=== PATIENT | female | born 2000 | race Caucasian/White ===

== ENCOUNTER 2023-07-11 20:57 | Outpatient (REF) | payer MEDICAID, SELFPAY ==
[2023-07-14 12:09] LABS: Age Gdln ACOG Testing Note (.); IGP, rfx Aptima HPV ASCU Note (.)
== END 2023-07-11 20:58 | disposition home or self-care (01) ==
LOC: LAB 20:57
PROVIDERS: Visit Provider Obstetrics & Gynecology
DX: Z01.419 Encounter for gynecological examination (general) (routine) without abnormal findings (principal)
CPT/HCPCS: G0145

== ENCOUNTER 2024-06-21 10:06 | Outpatient (OUT) | payer MEDICAID, SELFPAY ==
--- NOTE | 2024-06-21 10:31 | XR_ITS ---
The [address] [address] Patient Name: OSVALDO NICOLE MRN: [id number] date: 2000 Sex: F Assigned Patient Location: [facility] Current Patient Location: Accession/Order Number: [id number] Exam Date: 06/21/2024 10:45 Report Date: 06/22/2024 09:40 At the request of: YAS STINSON Procedure: XR chest 2V EXAMINATION: XR chest 2V HISTORY: Preop exam COMPARISON: No relevant comparison available. FINDINGS: LUNGS: No significant pulmonary parenchymal abnormalities. VASCULATURE: No increased pulmonary vasculature. PLEURA: No pneumothorax, effusion, or pleural thickening. CARDIAC: No cardiomegaly or cardiac silhouette abnormality. MEDIASTINUM: No visible mass or adenopathy. BONES: No fracture or visible bone lesion. OTHER: Negative. XR/XR chest 2V IMPRESSION: 1. Clear lungs. Normal examination. Electronically authenticated by: JULIO HORVATH Date: 06/22/2024 09:40
== END 2024-06-21 10:07 | disposition home or self-care (01) ==
LOC: PST 10:08
PROVIDERS: PCP Nurse Practitioner Family; Visit Provider Obstetrics & Gynecology
DX: Z01.810 Encounter for preprocedural cardiovascular examination (principal); R10.2 Pelvic and perineal pain; N83.9 Noninflammatory disorder of ovary, fallopian tube and broad ligament, unspecified
CPT/HCPCS: 71046

== ENCOUNTER 2024-07-06 06:38 | Day surgery (SDC) | payer MEDICAID, SELFPAY ==
[2024-06-21 10:39] VITALS: BP 124/87; PULSE 97; TEMP 36.5; O2SAT 100; BMI 29.2
[2024-07-06] VITALS (12 sets, daily range): BP systolic 98–128; BP diastolic 51–85; PULSE 69–91; TEMP 36.2; O2SAT 90–100; BMI 29.9
--- OUTSIDE RECORDS SUMMARY | 2024-07-06 06:41 | XMS_ITS | CCD ---
Author Organization [facility] Care Team Providers Care State Patrol Officer Name Role Phone Unavailable Primary Care Provider Unavailabl e MILAD, DR SORENSON Admitting Unavailable MILAD, DR SORENSON Attending Unavailable REQUEST, NONE LISTED Primary Care Unavaila ble MILAD, DR SORENSON Consulting Unavailable MILAD, DR SORENSON Admitting Unavailable MILAD, DR SORENSON Attending Unavailable REQUEST, NONE LISTED Primary Care Unavaila ble MILAD, DR SORENSON Consulting Unavailable BROWN, MARZENA Consulting Unavailable MILAD, DR SORENSON Admitting Unavailable MILAD, DR SORENSON Attending Unavailable REQUEST, NONE LISTED Primary Care Unavaila ble MILAD, DR SORENSON Admitting Unavailable MILAD, DR SORENSON Attending Unavailable REQUEST, NONE LISTED Primary Care Unavaila ble ABUGHARBYEH, AYA Attending Unavailable ABUGHARBYEH, AYA Attending Unavailable ABUGHARBYEH, AYA Attending Unavailable Unavailable Primary Care Provider Unavailabl e MEREDITH, MARZENA Moncada Referring Unavailable LEVER, MARZENA Moncada Referring Unavailable LEVER, MARZENA Moncada Attending Unavailable LEVER, MARZENA Moncada Attending Unavailable LEVER, MARZENA Moncada Attending Unavailable MILAD, YAS Attending Unavailable MILAD, YAS Attending Unavailable Allergies Allergy Classification Reported Allergen(s) Allergy Type Date of Onset Reaction(s) Facility (8 sources) Acetaminophen / HYDROcodone; Translations: [HYDROCODONE-ACETA MINOPHEN] Drug Allergy 03-09-2019 [facility] (2 sources) Acetaminophen / HYDROcodone Drug Allergy 09-26-[address] [facility] (1 source) Tylenol-Codeine Drug allergy (disorder) 10-26-[address] [facility] Medications Current Medications Medication Drug Class(es) Dates Sig (Normalized) Sig (Original) bifidobacterium infantis 10.5 mg chewable tablet (5 sources) Bifidobacterium infantis (ALIGN) 10.5 mg (10 million cell) chew Take by mouth. Active Comment on above: Take by mouth. multivit with iron,minerals (MULTIVITAMIN AND MINERALS ORAL) (5 sources) multivit with iron,minerals (MULTIVITAMIN AND MINERALS ORAL) Take by mouth once daily. Active multivit with ir on,minerals (MULTIVITAMIN AND MINERALS ORAL) Take by mouth once daily. 0 Active Comment on above: Take by mouth once d aily. Problems Active Problems Problem Classification Problem Date Documented Da te Episodic/Chronic Abdominal pain (9 sources) Pelvic and perineal pain; Translations: [Left lower quadrant pain] Onset: 04-14-2022 Episodic Immunizations and screening for infectious disease (1 source) Encounter for screening for human papillomavirus (HPV); Translations: [ENC SCREENING HUMAN PAPILLOMAVIRUS] Onset: 07-08-2022 Episodic Menstrual disorders (1 source) Irregular menstruation, unspecified; Translations: [IRREGULAR MENSTRUATION UNSPECIFIED] Onset: 04-19-2022 Chronic Other gastrointestinal disorders (3 sources) Abdominal bloating; Translations: [Abdominal distension (gaseous)] 04-23-2024 Episodic Other gastrointestinal disorders (2 sources) Abdominal distension (gaseous); Translations: [Bloating] Onset: 05-07-2024 Episodic Other infections; including parasitic (3 sources) Personal history of other infectious and parasitic diseases; Translations: [Personal history of other infectious and parasitic diseases] Onset: 04-16-2024 Episodic Other screening for suspected conditions (not mental disorders or infectious disease) (4 sources) Encounter for screening for malignant neoplasm of cervix; Translations: [ENC SCREENING MALIG NEOPLASM CERV] Onset: 07-07-2022 Episodic Past or Other Problems Problem Classification Problem Date Documented Da te Episodic/Chronic Spondylosis; intervertebral disc disorders; other back problems (4 sources) Sciatica, right side; Translations: [Sciatica, left side] Onset: 03-09-2023 Episodic Results Test Name Value Interpretation Reference Range Facility C diff Tox gens Stl Ql ARGENIS+p jennifereon 05-07-2024 C. difficile toxin genes ARGENIS+probe Ql (Stl) Negative Normal Negative for C. difficile toxin by PCR [facility] Comment on above: Order Comment: Speci men Type: STOOL SPECIMEN [facility] Address: [address] [place] [address] Performed By: #### 5 4067-4, FECWBC, 81429-2, 15080-2 #### [facility] CLIA [id number] [address] [facility] [id number] [address] [place] CBC panel Auto (Bld)on 05-07 Erythrocyte distribution width (RBC) [Ratio] 13.5 % Normal 11.5-15.0 [facility] Comment on above: Order Comment: Speci men Type: BLOOD SPECIMENOrdering Facility: [facility] Address: [address] [place] [address] Performed By: #### 5 8410-2 ####[facility] [id number] [address] [place] Hematocrit (Bld) [Volume fraction] 39.3 % Normal 36.0-46.0 [facility] Comment on above: Order Comment: Speci men Type: BLOOD SPECIMENOrdering Facility: [facility] Address: [address] [place] [address] Performed By: #### 5 8410-2 ####[facility] [id number] [place], [place] [address] [place] [address] [place] Hemoglobin (Bld) [Mass/Vol] 12.8 g/dL Normal 11.5-15.5 [facility] Comment on above: Order Comment: Speci men Type: BLOOD SPECIMENOrdering Facility: [facility] Address: [address] [place] [address] Performed By: #### 5 8410-2 ####[facility] [id number] [place] [address] [place] MCH (RBC) [Entitic mass] 29.4 pg Normal 26.0-34.0 [facility] Comment on above: Order Comment: Speci men Type: BLOOD SPECIMENOrdering Facility: [facility] Address: [address] [place] [address] Performed By: #### 5 8410-2 ####[facility] [id number] [place] [id number] [place] MCHC (RBC) [Mass/Vol] 32.6 g/dL Normal 30.5-36.0 [facility] Comment on above: Order Comment: Speci men Type: BLOOD SPECIMENOrdering Facility: [facility] Address: [address] [place] [address] Performed By: #### 5 8410-2 ####[facility] [id number] [place] [address] [place] MCV (RBC) [Entitic vol] 90.3 fL Normal 80.0-100.0 [facility] Comment on above: Order Comment: Speci men Type: BLOOD SPECIMENOrdering Facility: [facility] Address: [address] [place] [address] Performed By: #### 5 8410-2 ####[facility] [id number] [place], [place] [id number] [place] [address] [place] Nucleated RBC (Bld) [#/Vol] 10*3/uL Normal <0.01 [facility] Comment on above: Order Comment: Speci men Type: BLOOD SPECIMENOrdering Facility: [facility] Address: [address] [place] [address] Performed By: #### 5 8410-2 ####[facility] [id number] [place] [address] [place] Platelet mean volume (Bld) [Entitic vol] 8.9 fL Low 9.0-12.7 [facility] Comment on above: Order Comment: Speci men Type: BLOOD SPECIMENOrdering Facility: [facility] Address: [address] [place] [address] Performed By: #### 5 8410-2 ####[facility] [id number] [place] [id number] [place] Platelets (Bld) [#/Vol] 249 10*3/uL Normal 150-400 [facility] Comment on above: Order Comment: Speci men Type: BLOOD SPECIMENOrdering Facility: [facility] Address: [address] [place] [address] Performed By: #### 5 8410-2 ####[facility]ORYCLIA [id number] [place] [address] [place] RBC (Bld) [#/Vol] 4.35 10*6/uL Normal 3.90-5.20 [facility] Comment on above: Order Comment: Speci men Type: BLOOD SPECIMENOrdering Facility: [facility] Address: [address] [place] [address] Performed By: #### 5 8410-2 ####[facility] [id number] [place] [address] [place] WBC (Bld) [#/Vol] 7.25 10*3/uL Normal 3.70-11.00 [facility] Comment on above: Order Comment: [facility] Type: BLOOD SPECIMENOrdering Facility: [facility] Address: [address] [place] [address] Performed By: #### 5 8410-2 ####[facility] [id number] [place] [address] [place] [employer] HLA-DQ GENOTYPE on 05-07-2024 ORTIZ INTERPRETATION The HLA-DQ genotype of the patient is supportive of an increased risk of celiac disease. Normal [facility] Comment on above: Order Comment: Speci [facility] Type: BLOOD SPECIMENOrdering Facility: [facility] Address: [address] [place] [address] Performed By: #### C KAYLAH ####[facility] [id number] [place] [address] [place] CELIAC CATEGORY Category 3 Normal [facility] Comment on above: Order Comment: Speci [facility] Type: BLOOD SPECIMENOrdering Facility: [facility] Address: [address] [place] [address] Result Comment: CATEGORY DQ HAPLOTYPE RELATIVE RISK Category 7 DQ2.2 AND DQ2.5 Extremely High Category 7 DQ2.5 AND DQ2.5 Extremely High Category 6 DQ2.2 AND DQA1*05, DQB1*03:01 Very High Category 5 DQ2.2 AND DQ8 Very High Category 5 DQ2.5 AND DQ8 Very High Category 4 DQ8 AND DQ8 High Category 3 DQ2.5 AND DQA1*05, DQB1*03:01 High Category 3 DQ2.5 AND DQA1*02:01, DQB1*03:03 High Category 3 DQ2.5 AND DQA1*03, DQB1*02 High Category 3 DQ2.5 AND OTHER LOW RISK [place] High Category 3 DQ2.2 AND DQA1*05, DQB1*03:03 High Category 2 DQ8 AND OTHER LOW RISK [place] Moderate Category 1 DQ2.2 AND OTHER LOW RISK [place] Low Category 0 NEGATIVE FOR DQ2.2 Negative Category 0 NEGATIVE FOR DQ2.5 Negative Category 0 NEGATIVE FOR DQ8 Negative DQ2.2 = DQA1*02:01, DQB1*02:02 DQ2.5 = DQA1*05, DQB1*02:01 DQ8 = DQA1*03, DQB1*03:02 The identification of one of these HLA-DQ genotypes is not, by itself, sufficient for the diagnosis of celiac disease, since both DQ2 and DQ8 are relatively common in the general population. The strongest reported HLA associations with celiac disease include DQ2 (DQ2.5 or DQA1*05-DQB1*02:01 & DQA2.2 or DQA1*02:01-DQB1*02:02) and DQ8 (DQA1*03:01/DQB1*03:02). This test is useful for family members of celiac patients and patients with negative serology results. This testing can rule out celiac disease with high negative predictive value (NPV) of 95-100% depending on the ethnic background. In cases of an ambiguous HLA allele assignment where multiple rare alleles cannot be excluded, the most common HLA allele is reported. References: 1. Hoa L, Andrew J, Conner K, et al. Cost-effective HLA typing with tagging SNPs predicts celiac disease risk haplotypes in the Tajik, Maltese and Bengali populations. Immunogenetics. 2009 Dec;61(4):247-56. 2. [place] WOOD. Celiac disease: dissecting a complex inflammatory disorder. Varsha Rev Immunol. 2002 May;2(9):647-55. 3. Agustín E, Parvez HS, Cari CA, et al. Risk of pediatric celiac disease according to HLA haplotype and country. N Engl J Med. 2014 ;371(1):42-9. HLA typing performed by PCR-RSSOP and/or NGS. This test was developed and its performance characteristics determined by [facility]. The test has not been cleared or approved by the [place] FDA. However, FDA approval was not necessary since this lab is certified under CLIA for high complexity testing. Test performed by: Man[facility] by [facility], [address] [place] [address]., [place] [address]. CLIA [id number]. Performed By: #### C KAYLAH ####[facility]CL[facility] [id number] [address] CELIAC RISK HAPLOTYPE Positive [facility] Comment on above: Order Comment: Speci men Type: BLOOD SPECIMENOrdering Facility: [facility] Address: [address] [place] [address] Performed By: #### C KAYLAH ####[facility]CL[facility] [id number] [address] [place] HLA-DQA1 GENOTYPE HLA-DQA1*: 05, 01 [facility] Comment on above: Order Comment: Speci men Type: BLOOD SPECIMENOrdering Facility: [facility] Address: [address] [place] [address] Performed By: #### C KAYLAH ####[facility] [id number] [address] [place] HLA-DQB1 GENOTYPE HLA-DQB1*: 02:01, 06 [facility] Comment on above: Order Comment: Speci men Type: BLOOD SPECIMENOrdering Facility: [facility] Address: [address] [place] [address] Performed By: #### C KAYLAH ####[facility] [id number] [place] [address] [place] CRP SerPl-mCncon 05-07-2024 CRP [Mass/Vol] mg/L Normal <0.9 [facility] Comment on above: Order Comment: Speci men Type: BLOOD SPECIMEN [facility] Address: [address] [place] [address] Performed By: #### 2 4323-8, 1988-01 #### [facility] CLIA [id number] [address] [place] [address] [place] Calprotectin (Stl) [Mass/Mas s]on 05-07-2024 CALPROTECTIN, FECAL INTERP Normal Normal Normal [facility] Comment on above: Order Comment: Speci men Type: STOOL SPECIMEN [facility] Address: [address] [place] [address] Result Comment: Inte rpretation: <50.0 ug/g: Normal 50.0 ug/g - 120.0 ug/g: Borderline elevated. Re-evaluation in 4-6 weeks is recommended if clinically indicated. >120.0 ug/g: Elevated Performed By: #### 5 4067-4, FECWBC, 55051-9, 65043-9 #### [facility] CLIA [id number] [address] [place] [address] [place] CALPROTECTIN, FECAL QUANTITATIVE 32.8 ug/g Normal <50 [facility] Comment on above: Order Comment: Speci men Type: STOOL SPECIMEN [facility] Address: [address] [place] [address] Performed By: #### 5 4067-4, FECWBC, 46582-6, 55042-1 #### [facility] CLIA [id number] [address] [place] [address] [place] Comprehensive metabolic 2000 panelon 05-07-2024 Albumin [Mass/Vol] 4.4 g/dL Normal 3.9-4.9 [facility] Comment on above: Order Comment: Speci men Type: BLOOD SPECIMEN [facility] Address: [address] [place] [address] Performed By: #### 2 4323-8, 1988-01 #### [facility] CLIA [id number] [address] [place] [address] [place] ALP [Catalytic activity/Vol] 60 U/L Normal 34-123 [facility] Comment on above: Order Comment: Speci men Type: BLOOD SPECIMEN [facility] Address: [address] [place] [address] Performed By: #### 2 4323-04, 1988-01 #### [facility] CLIA [id number] [address] [place] [address] [place] ALT [Catalytic activity/Vol] 11 U/L Normal 7-38 [facility] Comment on above: Order Comment: Speci men Type: BLOOD SPECIMEN [facility] Address: [address] [place], [place] [address] Performed By: #### 2 4323-04, 1988-01 #### [facility] CLIA [id number] [address] [place] [address] [place] Anion gap [Moles/Vol] 12 mmol/L Normal 8-15 [facility] Comment on above: Order Comment: Speci men Type: BLOOD SPECIMEN [facility] Address: [address] [place], [place] [address] Performed By: #### 2 4323-04, 1988-01 #### [facility] CLIA [id number] [address] [place] [address] [place] AST [Catalytic activity/Vol] 16 U/L Normal 13-35 [facility] Comment on above: Order Comment: Speci men Type: BLOOD SPECIMEN [facility] Address: [address] [place] [address] Performed By: #### 2 4323-04, 1988-01 #### [facility] CLIA [id number] [address] [place] [address] [place] Bilirubin [Mass/Vol] 0.4 mg/dL Normal 0.2-1.3 [facility] Comment on above: Order Comment: Speci men Type: BLOOD SPECIMEN [facility] Address: [address] [place] [address] Performed By: #### 2 4323-04, 1988-01 #### [facility] CLIA [id number] [address] [place] [address] [place] Calcium [Mass/Vol] 9.1 mg/dL Normal 8.5-10.2 [facility] Comment on above: Order Comment: Speci men Type: BLOOD SPECIMEN [facility] Address: [address] [place], [place] [address] Performed By: #### 2 43212-01, 1988-01 #### [facility] CLIA [id number] [address] [place] [address] [place] Chloride [Moles/Vol] 101 mmol/L Normal 98-107 [facility] Comment on above: Order Comment: Speci men Type: BLOOD SPECIMEN [facility] Address: [address] [place] [address] Performed By: #### 2 43212-01, 1988-01 #### [facility] CLIA [id number] [address] [place] [address] [place] CO2 [Moles/Vol] 26 mmol/L Normal 22-30 [facility] Comment on above: Order Comment: Speci men Type: BLOOD SPECIMEN [facility] Address: [address] [place] [address] Performed By: #### 2 4323-04, 1988-01 #### [facility] CLIA [id number] [address] [place] [address] [place] Creatinine [Mass/Vol] 0.57 mg/dL Low 0.58-0.96 [facility] Comment on above: Order Comment: Speci men Type: BLOOD SPECIMEN [facility] Address: [address] [place], [place] [address] Performed By: #### 2 43212-01, 1988-01 #### [facility] CLIA [id number] [address] [place] [address] [place] Creatinine and Glomerular filtration rate.predicted panel (S/P/Bld) 130 mL/min/1.73m??? Normal >=60 [facility] Comment on above: Order Comment: Speci men Type: BLOOD SPECIMEN [facility] Address: [address] [place] [id number] Result Comment: Julissa mated Glomerular Filtration Rate (eGFR) is calculated using the 2020 CKD-EPI creatinine equation. This equation utilizes serum creatinine, sex, and age as parameters. The creatinine assay has traceable calibration to isotope dilution-mass spectrometry. Refer to KDIGO guidelines for clinical interpretation. In patients with unstable renal function, e.g. those with acute kidney injury, the eGFR may not accurately reflect actual GFR. Performed By: #### 2 4323-04, 1988-01 #### [facility] CLIA [id number] [address] [place] [address] [place] Glucose [Mass/Vol] 82 mg/dL Normal 74-99 [facility] Comment on above: Order Comment: Georgiana serrano Type: BLOOD SPECIMEN [facility] Address: [address] [place] [address] Result Comment: The [place] Diabetes Association (ADA) provides guidance for cutoff values for fasting glucose and random glucose. The ADA defines fasting as no caloric intake for at least 8 hours. Fasting plasma glucose results between 100 to 125 mg/dL indicate increased risk for diabetes (prediabetes). Fasting plasma glucose results greater than or equal to 126 mg/dL meet the criteria for diagnosis of diabetes. In the absence of unequivocal hyperglycemia, results should be confirmed by repeat testing. In a patient with classic symptoms of hyperglycemia or hyperglycemic crisis, random plasma glucose results greater than or equal to 200 mg/dL meet the criteria for diagnosis of diabetes. Reference: Standards of Medical Care in Diabetes 2016, [place] Diabetes Association. Diabetes Care. 2016.39(Suppl 1). Performed By: #### 2 4323-04, 1988-01 #### [facility] CLIA [id number] [address] [facility] [place] [address] [place] Potassium [Moles/Vol] 4.4 mmol/L Normal 3.7-5.1 [facility] Comment on above: Order Comment: Georgiana serrano Type: BLOOD SPECIMEN [facility] Address: [address] [place] [id number] Performed By: #### 2 4323-04, 1988-01 #### [facility] CLIA [id number] [address] [place] [address] [place] Protein [Mass/Vol] 7.5 g/dL Normal 6.3-8.0 [facility] Comment on above: Order Comment: Speci men Type: BLOOD SPECIMEN [facility] Address: [address] [place] [address] Performed By: #### 2 4323-8, 1988-01 #### [facility] IA [id number] [address] [place] [address] [place] Sodium [Moles/Vol] 139 mmol/L Normal 136-144 [facility] Comment on above: Order Comment: Speci men Type: BLOOD SPECIMEN [facility] Address: [address] [place] [address] Performed By: #### 2 4323-8, 1988-01 #### [facility] IA [id number] [address] [place] [address] [place] Urea nitrogen [Mass/Vol] 11 mg/dL Normal 7-21 [facility] Comment on above: Order Comment: Speci men Type: BLOOD SPECIMEN [facility] Address: [address] [place] [address] Performed By: #### 2 4323-8, 1988-01 #### [facility] IA [id number] [address] [place] [address] [place] ESR Westergren method (Bld) [Velocity]on 05-07-2024 ESR (Bld) [Velocity] 6 mm/h Normal 0-20 [facility] Comment on above: Order Comment: Speci men Type: BLOOD SPECIMEN [facility] Address: [address] [place] [address] Performed By: #### 4 537-7 #### [facility] CLIA [id number] [address] [place] [address] [place] [address] [place] FECAL LACTOFERRIN/LEUKOCYTES on 05-07-2024 Lactoferrin IA Ql (Stl) Negative for lactoferrin, which may indicate the absence of fecal white blood cells Normal Negative [facility] Comment on above: Order Comment: Speci maggie Type: STOOL SPECIMEN [facility] Address: [address] [place] [address] Performed By: #### 5 4067-4, FECWBC, 03720-4, 25176-7 #### [facility] CLIA [id number] [address] [place] [address] [place] G lamblia+Cryptosp Ag Stl Ql IAon 05-07-2024 G. lamblia+Cryptosporidi um sp Ag IA Ql (Stl) CRYPTOSPORIDIUM ANTIGEN BY EIA: Negative for Cryptosporidium by EIA. GIARDIA ANTIGEN BY EIA: Negative for Giardia lamblia by EIA. Normal [facility] Comment on above: Performed By: #### 5 4067-4, FECWBC, 86132-8, 01213-0 #### [facility] CLIA [id number] [address] [place] [address] [place] GLIADIN (DEAMIDATED) AB, IGA on 05-07-2024 GLIAD DEAMIDATED IGA QUAL Negative Normal Negative, Test not Indicated [facility] Comment on above: Order Comment: Georgiana serrano Type: BLOOD SPECIMEN [facility] Address: [address] [place] [address] Result Comment: This is used as an aid in diagnosis of celiac disease. Clinical correlation is required. The following results were obtained with an [employer] Gliadin IgA DK Gliadin. Gliadin IgA values obtained with different manufacturers' assay methods may not be used interchangeably. The magnitude of the reported IgA levels cannot be correlated to an endpoint titer. Performed By: #### 3 1017-7, PAZ FLORES #### [facility] CLIA [id number] [address] [place] [address] [place] Gliadin peptide IgA Qn (S) 5 Units Normal <20 [facility] Comment on above: Order Comment: Cristinei men Type: BLOOD SPECIMEN [facility] Address: [address] [place] [address] Performed By: #### 3 1017-7SANDRA GLIIGG #### [facility] CLIA [id number] [address] [place] [address] [place] GLIADIN (DEAMIDATED) AB, IGG on 05-07-2024 GLIAD DEAMIDATED IGG QUAL Negative Normal Negative, Test not Indicated [facility] Comment on above: Order Comment: Speci men Type: BLOOD SPECIMEN Ordering Facility: [facility] Address: [address] [place] [address] Result Comment: This test is used as an aid in diagnosis of celiac disease in IgA-deficient individuals only. Clinical correlation is required. The following results were obtained with an [employer] QUANTA Lite Gliadin IgG DK Gliadin. Gliadin IgG values obtained with different manufacturers' assay methods may not be used interchangeably. The magnitude of the reported IgG levels cannot be correlated to an endpoint titer. Performed By: #### 3 1017-7SANDRA GLIIGG #### [facility] CLIA [id number] [address] [place] [address] [place] Gliadin peptide IgG Qn (S) 1 Units Normal <20 [facility] Comment on above: Order Comment: Speci men Type: BLOOD SPECIMEN Ordering Facility: [facility] Address: [address] [place] [address] Performed By: #### 3 1017-7SANDRA GLIIGG #### [facility] CLIA [id number] [address] [place] [address] [place] Gastrointestinal pathogens i dentified ARGENIS+probe Nom (Stl)on 05-07-2024 Campylobacter sp DNA ARGENIS+probe Nom (Unsp spec) Not detected Normal Not Detected [facility] Comment on above: Order Comment: Speci men Type: STOOL SPECIMEN Ordering Facility: [facility] Address: [address] [place] [address] Performed By: #### 7 9390-1 #### [facility] CLIA [id number] [address] [place] [address] [place] Salmonella sp DNA ARGENIS+probe Ql (Unsp spec) Not detected Normal Not Detected [facility] Comment on above: Order Comment: Speci men Type: STOOL SPECIMEN Ordering Facility[facility] Address: [address] [place] [address] Performed By: #### 7 9390-1 #### [facility] CLIA [id number] [address] [place] [address] [place] Shiga toxin stx gene ARGENIS+probe Nom (Unsp spec) Not detected Normal Not Detected [facility] Comment on above: Order Comment: Speci men Type: STOOL SPECIMEN Ordering Facility[facility] Address: [address] [place] [address] Performed By: #### 7 9390-1 #### [facility] CLIA [id number] [address] [place] [address] [place] Shigella sp DNA ARGENIS+probe Ql (Unsp spec) Not detected Normal Not Detected [facility] Comment on above: Order Comment: Speci men Type: STOOL SPECIMEN [facility] Address: [address] [place] [address] Performed By: #### 7 9390-1 #### [facility] CLIA [id number] [address] [place] [address] [place] HCG Preg Ur Qlon 05-07-2024 HCG ( test) Ql (U) Negative Normal Negative [facility] Comment on above: Order Comment: Speci men Type: URINE SPECIMEN Ordering Facility[facility] Address: [address] [place] [address] Result Comment: This test is intended to aid in the early detection of . Very dilute urine samples, as indicated by a low specific gravity, may not contain small business sales representative levels of hCG. This test detects intact hCG only. This test does not reliably detect hCG degradation products, including free-beta subunit and beta-core fragment. Therefore, this test may show reduced reactivity in urine after 8 weeks gestation. A number of conditions other than , including trophoblastic disease and certain non-trophoblastic neoplasms cause elevated levels of hCG. As with any assay employing mouse antibodies, the possibility exists for interference by human anti-mouse antibodies (HAMA) in the specimen. The test provides a presumptive diagnosis for . Performed By: #### 2 106-3 #### [facility] CLIA [id number] [place] [address] [place] IgA SerPl-mCncon 05-07-2024 IgA [Mass/Vol] 203 mg/dL Normal 70-400 [facility] Comment on above: Order Comment: Speci men Type: BLOOD SPECIMEN Ordering Facility[facility] Address: [address] [place] [address] Performed By: #### 2 458-8 #### [facility] CLIA [id number] [address] [place], [place] [address] [address] [place] XR ABD 2V SUPINE W UPR/DECUB /CTLon 05-07-2024 XR ABD 2V SUPINE W UPR/DECUB/CTL * * *Final Report* * * DATE OF EXAM: May 07 2024 9:35AM VHX [id number] - XR ABD 2V SUPINE W UPR/DECUB/CTL / PROCEDURE REASON: multiple diagnoses * * * * Physician Interpretation * * * * SUPINE AND UPRIGHT ABDOMINAL FILMS: 05/07/2024 9:35 AM CLINICAL HISTORY: LLQ abdominal pain Bloating COMPARISON: None. TECHNIQUE: Supine and upright, (2 views), 3 images. RESULT: See impression. IMPRESSION: * Normal caliber small and large bowel. Mild colonic stool burden. No obstruction. * No intraperitoneal free air on the upright view. * No abnormal calcifications. Open Hearth Helper: PSCB Transcribe Date/Time: May 10 2024 4:29P Dictated by : ZOHAIB TIDWELL MD This examination was interpreted and the report reviewed and electronically signed by: ZOHAIB TIDWELL MD on May 10 2024 4:30PM EST [id number] N Normal [facility] tTG IgA Qn (S)on 05-07-2024 TRANSGLUTAMINASE IGA ABS INTERPRETATION Negative Normal Negative [facility] Comment on above: Order Comment: Speci men Type: BLOOD SPECIMEN Order[facility] Address: [address] [place] [address] Result Comment: The following results were obtained with [employer] R h-tTG IgA DK.???R h-tTG IgA values obtained with different manufacturers' assay methods may not be used interchangeably. The magnitude of the reported IgA levels cannot be correlated to an endpoint???concentration. This is used as an aid in diagnosis of celiac disease. Clinical correlation is required. Performed By: #### 3 1017-7, PAZ FLORES #### [facility] CLIA [id number] [address] [place] [address] [place] tTG IgA Ser-aCncon 4 tTG IgA Qn (S) <2 Normal <4 [facility] Comment on above: Order Comment: Georgiana serrano Type: BLOOD SPECIMEN Ordering [facility] Address: [address] [place] [address] Performed By: #### 3 1017-7, PAZ FLORES #### [facility] CLIA [id number] [address] [place] [address] [place] Follow-Upon 08-22-2023 Follow-Up [id number] Nayana Nicole 2000 Date Provider Department Center 08/22/2023 MILVIA JOHNSON [facility] Family History Problem Relation Age of Onset No Known Problems Mother No Known Problems Father Heart defect Maternal Grandmother Arthritis Maternal Grandfather Family Status - Relation Status Age at Mother Father Maternal Grandmother Maternal Grandfather Level of Service:08976 [place] OFFICE/OUTPATIENT ESTABLISHED LOW MDM 20-29 MIN Reason for Visit and Comments: Follow-up [[id number]] Normal [facility] Follow-Upon 03-09-2023 Follow-Up [id number] Nayana Nicole 2000 F Date Provider Department Center 03/09/2023 MILVIA JOHNSON [facility] Family History Problem Relation Age of Onset No Known Problems Mother No Known Problems Father Heart defect Maternal Grandmother Family Status - Relation Status Age at Mother Father Maternal Grandmother Level of Service:32165 [place] OFFICE/OUTPATIENT ESTABLISHED LOW MDM 20-29 MIN (GE) Reason for Visit and Comments: Follow-up [[id number]] - follow up MRI hip and back pain Normal [facility] Telemedicineon 10-05-2022 Telemedicine [id number] Nayana Nicole Isaias 2000 F Date Provider Department Center 10/05/2022 Yulissa-MILVIA DENNIS C [facility]UM [facility] Family History Problem Relation Age of Onset No Known Problems Mother No Known Problems Father Heart defect Maternal Grandmother Family Status - Relation Status Age at Mother Father Maternal Grandmother Level of Service:PBTLH [place] UTP TELEMEDICINE Reason for Visit and Comments: Follow-up [[id number]] Normal [facility] PAP ACOG PANEL 2: 21 to 29on 07-14-2022 . . Normal [facility] Comment on above: Performed By: #### 4 [id number] #### [facility] [address] [place] [address] Dr. Ilene Chapa Age Gdln ACOG Testing 21-29 Normal [facility] Comment on above: Performed By: #### 4 [id number] #### [facility] [address] [address] [address] Ilene Chapa DIAGNOSIS: Comment [facility] Comment on above: Result Comment: NEGA TIVE FOR INTRAEPITHELIAL LESION OR MALIGNANCY. Performed By: #### 4 [id number] #### [facility] [address] [address] [address] Ilene Chapa Methodology: Comment [facility] Comment on above: Result Comment: This liquid based ThinPrep(R) pap test was screened with the use of an image guided system. Performed By: #### 4 [id number] #### [facility] [address] [place] [address] Dr. Ilene Chapa Note: Comment [facility] Comment on above: Result Comment: The Pap smear is a screening test designed to aid in the detection of premalignant and malignant conditions of the uterine cervix. It is not a diagnostic procedure and should not be used as the sole means of detecting cervical cancer. Both false-positive and false-negative reports do occur. . Performed By: #### 4 [id number] #### [facility] [address] [place] [address] Dr. Ilene Chapa Performed by: Comment Normal [facility] Comment on above: Result Comment: Mounika Hernandez, Clinical Review Specialist (ASCP) Performed By: #### 4 [id number] #### [facility] [address] [place] [address] Dr. Ilene Chapa Reflex Criteria: Comment Normal [facility] Comment on above: Result Comment: The HPV DNA reflex criteria were not met with this specimen result therefore, no HPV testing was performed. . Performed By: #### 4 [id number] #### [facility] [address] [place] [address] Dr. Ilene Chapa Specimen adequacy: Comment Normal [facility] Comment on above: Result Comment: Sati sfactory for evaluation. Endocervical and/or squamous metaplastic cells (endocervical component) are present. Performed By: #### 4 [id number] #### [facility] [address] [place] [address] Dr. Ilene Chapa HCG-BETA SUBUNIT QUANTon hCG,Beta Subunit,Qnt,Serum <1 Normal [facility] Comment on above: Result Comment: Fema le (Non-) 0 - 5 (Postmenopausal) 0 - 8 . Female () Weeks of Gestation 3 6 - 71 4 10 - 750 5 393 - 3738 6 158 - 74378 7 [phone] [phone] 8 90504 -[phone] 9 43010 -[phone] 10 94258 -[phone] 12 72502 -080055 14 13717 - 81496 15 32993 - 77596 16 8707 - 88379 17 1040 - 35971 18 0367 - 68245 Sendy ECLIA methodology Performed By: #### H CGSUB #### [facility] [address] [place] [address] Dr. Ilene Chapa US PELVIS AND TRANSVAGon US PELVIS AND TRANSVAG EXAM: Pelvic ultrasound HISTORY: Pelvic and perineal pain. COMPARISON: None. TECHNIQUE: Transabdominal and transvaginal scanning was performed. FINDINGS: Scanning of the pelvis demonstrates uterus to measure 5.5 x 3 x 3.8 cm. Uterus appears retroverted. Endometrial complex measures 8 mm. Right ovary measures 3.3 x 2.1 x 3.4 cm. Color-flow is noted. Resistive indexes 0.53 small follicles are noted. Left ovary measures 2.9 x 2.9 x 1.6 cm. Color-flow is noted. Resistive indexes 0.48. Follicles are noted. There is a small to mild amount of free fluid in the pelvis. IMPRESSION: 1. Normal retroverted uterus. 2. Normal-appearing ovaries with color flow. 3. There is a small to mild amount of fluid in the cul-de-sac of unknown origin. Electronically authenticated by: MARZENA MICHELE Date: 2022-04-15 08:16 Normal [facility] CBC AUTO DIFFon 04-14-2022 BASO # 0.0 103/ul Normal 0.0-0.[address] [facility] Comment on above: Performed By: #### C BC #### [facility] [address] [place] [address] Dr. Ilene Chapa Basophils/100 WBC (Bld) 0.5 % Normal 0.2-2.[address] [facility] Comment on above: Performed By: #### C BC #### [facility] [address] [place] [address] Dr. Ilene Chapa EO # 0.1 103/ul Normal 0.0-0.[address] [facility] Comment on above: Performed By: #### C BC #### [facility] [address] [place] [address] Dr. Ilene Chapa Eosinophils/100 WBC (Bld) 1.3 % Normal 0.9-7.[address] [facility] Comment on above: Performed By: #### C BC #### [facility] [address] [place] [address] Dr. Ilene Chapa Erythrocyte distribution width (RBC) [Ratio] 13.1 % Normal 11.0-15.0 [facility] Comment on above: Performed By: #### C BC #### [facility] [address] [place] [address] Dr. Ilene Chapa Hematocrit (Bld) [Volume fraction] 36.9 % Normal 36.0-48.0 [facility] Comment on above: Performed By: #### C BC #### [facility] [address] [place] [address] Dr. Ilene Chapa Hemoglobin (Bld) [Mass/Vol] 12.0 g/dL Normal 12.0-16.0 [facility] Comment on above: Performed By: #### C BC #### [facility] [address] [place] [address] Dr. Ilene Chapa IG # 0.01 10e3/ul Normal 0.00-0.03 [facility] Comment on above: Performed By: #### C BC #### [facility] [address] [place] [address] Dr. Ilene Chapa IG % 0.2 % Normal 0.0-0.5 [facility] Comment on above: Performed By: #### C BC #### [facility] [address] [place] [address] Dr. Ilene Chapa LYMPH # 2.1 103/ul Normal 1.2-3.8 [facility] Comment on above: Performed By: #### C BC #### [facility] [address] [place] [address] Dr. Ilene Chapa Lymphocytes/100 WBC (Bld) 33.7 % Normal 20.5-60.0 [facility] Comment on above: Performed By: #### C BC #### [facility] [address] [place] [address] Dr. Ilene Chapa MANUAL DIFF REQ NO Normal [facility] Comment on above: Performed By: #### C BC #### [facility] [address] [place] [address] Dr. Ilene Chapa MCH (RBC) [Entitic mass] 29.9 pg Normal 26.7-34.0 [facility] Comment on above: Performed By: #### C BC #### [facility] [address] [place] [address] Dr. Ilene Chapa MCHC (RBC) [Mass/Vol] 32.5 g/dL Normal 29.9-35.2 [facility] Comment on above: Performed By: #### C BC #### [facility] [address] [place] [address] Dr. Ilene Chapa MCV (RBC) [Entitic vol] 92.0 fL Normal 81.0-99.0 [facility] Comment on above: Performed By: #### C BC #### [facility] [address] [place] [address] Dr. Ilene Chapa MONO # 0.4 103/ul Normal 0.3-0.8 [facility] Comment on above: Performed By: #### C BC #### [facility] [address] [place] [address] Dr. Ilene Chapa Monocytes/100 WBC (Bld) 5.9 % Normal 1.7-12.0 [facility] Comment on above: Performed By: #### C BC #### [facility] [address] [place] [address] Dr. Ilene Chapa NEUT # 3.6 103/ul Normal 1.4-6.5 [facility] Comment on above: Performed By: #### C BC #### [facility] [address] [place] [address] Dr. Ilene Chapa Neutrophils/100 WBC (Bld) 58.4 % Normal 43.0-75.0 [facility] Comment on above: Performed By: #### C BC #### [facility] [address] [place] [address] Dr. Ilene Chapa Platelet mean volume (Bld) [Entitic vol] 9.0 fL Critically low 9.5-13.[address] [facility] Comment on above: Performed By: #### C BC #### [facility] [address] [place] [address] Dr. Ilene Chapa PLT 258 103/ul Normal 150-[address] [facility] Comment on above: Performed By: #### C BC #### [facility] [address] [place] [address] Dr. Ilene Chapa RBC 4.01 106/ul Critically low 4.20-5.40 [facility] Comment on above: Performed By: #### C BC #### [facility] [address] [place] [address] Dr. Ilene Chapa WBC 6.1 103/ul Normal 4.0-11.0 [facility] Comment on above: Performed By: #### C BC #### [facility] [address] [place] [address] Dr. Ilene Chapa PROTIMEon 04-14-2022 INR Coag (PPP) [Relative time] 1.02 {INR} Normal [facility] Comment on above: Performed By: #### P TT, PT #### [facility] [address] [place] [address] Dr. Ilene Chapa INR GUIDELINES SEE BELOW Normal [facility] Comment on above: Result Comment: LENIN RED INR: 2.0 - 3.0 CONDITIONS NOT LISTED BELOW 2.5 - 3.5 FOR PROSTHETIC HEART VALVE REPLACEMENT 2.5 - 3.5 RECURRENT THROMBOSIS Performed By: #### P TT, PT #### [facility] [address] [place] [address] Dr. Ilene Chapa PT Coag (PPP) [Time] 11.0 s Normal 9.0-11.6 [facility] Comment on above: Performed By: #### P TT, PT #### [facility] [address] [place] [address] Dr. Ilene Chapa PTTon 04-14-2022 aPTT Coag (Bld) [Time] 28.8 s Normal 22.3-36.2 [facility] Comment on above: Performed By: #### P TT, PT #### [facility] [address] [place] [address] Dr. Ilene Chapa TSHon 04-14-2022 TSH 0.676 uIU/mL Normal 0.358-3.740 [facility] Comment on above: Performed By: #### T SH #### [facility] [address] [place] [address] Dr. Ilene Chapa Gastroenterology Office/Clin ic Noteon 06-04-2021 Gastroenterology Office/Clinic Note Chief Complaint self ref- C. diff HPI Staff This is a 21 year old female who presents today for a self referral for c-diff. History of Present Illness The patient or their guardian verbally consented to allow Tj Ventura to record this visit. Nayana Nicole is a 21-year-old white female who presents for evaluation of possible Clostridium difficile colitis. She was diagnosed with C. diff colitis in 10/2020 and was prescribed vancomycin 4 times daily for 10 days. Her symptoms initially resolved, but returned 1.5 weeks after she finished the vancomycin. She saw her primary care physician again, who ordered another C. diff stool test, which was positive. Nayana was prescribed another course of antibiotics and referred to Gastroenterology, Dr. Gonzales in [place], [place]. She states Dr. Gonzales treated her with vancomycin 4 times per day for 10 days 3 times. She received a call from Dr. Pena's office in late 03/2021 to schedule a fecal transplant. She states that she was never prescribed Dificid or a vancomycin taper. Nayana has continued intermittent diarrhea. She states that her bowel habits alternate between diarrhea and constipation. Her stool most recently tested positive for C. diff 1 to 2 months ago. Review of Systems PHQ Score Initial Depression Screen Score: 0 Constitutional: no fever, no chills, no sweats, no weakness Skin: no Jaundice, no rash, no lesions, no petechiae ENMT: no ear pain, no sore throat, no congestion, no hoarseness Respiratory: no shortness of breath, no cough, no orthopnea, no wheezing Cardiovascular: no chest pain, no palpitations, no edema Gastrointestinal: no nausea, no vomiting, moderate diarrhea, no Constipation, noGI bleeding, no abd pain, no dysphagia, no bloating, no heartburn Genitourinary: no dysuria, no hematuria, no discharge, no pain Musculoskeletal: no back pain, no trauma Neurologic: no numbness, no sleeping problems Additional ROS info: Except as noted in the above Review of Systems and in the History of Present Illness all other systems have been reviewed and are negative or noncontributory. Physical Exam Vitals & Measurements T: 36.6 ?C (Temporal Artery) HR: 81(Peripheral) RR: 16 BP: 99/64 HT: 162 cm HT: 162.0 cm WT: 60.8 kg WT: 60.8 kg BMI: 23.17 Constitutional: Appearance: well developed Skin: Inspection: no rashes, ulcers, icterus , or telangiectasias. Eyes: Conjunctivae/lids: normal conjunctivae and lids. ENMT: Hearing: within normal limits. Lips/Teeth/Gums: normal oral mucosa Neck: Neck: normal motion, central trachea. Respiratory: Percussion: thorax normoresonant. Auscultation: normal breath sounds; no rubs, wheezes, rale or rhonchi. Cardiovascular: Auscultation: normal rhythm, S1 and S2; no rubs, murmurs or gallop. Peripheral: no edema Gastrointestinal/Abdo men: Abdomen: normal consistency and bowel sounds; no tenderness or masses. Liver/Spleen: normal size and consistency, not palpable. Rectal: deferred Musculoskeletal: Gait/station: normal gait Assessment/Plan 1. Clostridium difficile infection (A49.8: Other bacterial infections of unspecified site) The patient had C. difficile initially treated at the outside facility provider by a course of vancomycin for 10 days. Her symptoms recurred a few days after the end of the course. She received multiple up to 3 to 4 similar courses of vancomycin 10 days each of which her symptoms improved during taking the treatment, but recurred after the end of treatment. She continued to report abdominal discomfort and sporadic diarrhea. We will proceed with Dificid. 2. 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 ATTESTATION Documentation services were performed by [employer] after patient consented to recording for virtual study specialist and provider reviewed before signing. LIZZ: Kayla Oconnor. Follow-up No qualifying data available Problem List/Past Medical History Ongoing No qualifying data Historical No qualifying data Medications Dificid 200 mg oral tablet, 200 mg= 1 tab(s), Oral, BID Allergies Vicodin (Hives) Social History Tobacco Vaping, 06/03/2021 Normal [facility] Comment on above: Result Comment: Elec tronically Signed By: Kayla Oconnor\.br\Date and Time Signed: 06/03/21 16:33 EDT\.br\Electronically Co-Signed By: Patricia SELLERS MD\.br\Date and Time Co-Signed: 06/04/21 09:00 EDT Ambulatory Clinical Summaryo n 06-03-2021 Ambulatory Clinical Summary {[id number] [facility] Encounters Encounter Date Encounter Type Care Provider Facility Start: 06-07-2024 End: 06-07-2024 ambulatory YAS STINSON Not Available Start: 05-22-2024 End: 05-22-2024 Telemedicine consultation with patient Marzena Martines MD Work Phone: Gastroenterology Start: 05-22-2024 End: 05-22-2024 ambulatory Marzena Martines MD Work Phone: Gastroenterology Comment on above: LLQ abdominal pain ( Primary Dx); Bloating Start: 05-09-2024 End: 05-09-2024 ambulatory YAS STINSON Not Available Start: 05-07-2024 End: 05-07-2024 ambulatory MARZENA MARTINES Facility:[facility] Start: 05-07-2024 End: 05-07-2024 Subsequent hospital visit by physician [facility] Work Phone: [facility] Radiology General Comment on above: LLQ abdominal pain [ R10.32] Start: 04-23-2024 End: 04-23-2024 ambulatory Marzena Martines MD Work Phone: Gastroenterology Comment on above: LLQ abdominal pain ( Primary Dx); Bloating Start: 04-23-2024 End: 04-23-2024 Telemedicine consultation with patient Marzena Martines MD Work Phone: Gastroenterology Start: 04-16-2024 End: 04-16-2024 ambulatory Marzena Martines MD Work Phone: Gastroenterology Comment on above: H/O Clostridium diff icile infection (Primary Dx) Start: 04-16-2024 End: 04-16-2024 Telemedicine consultation with patient Marzena Martines MD Work Phone: Gastroenterology Start: 08-22-2023 End: 08-22-2023 [facility] Start: 03-09-2023 End: 03-09-2023 [facility] Start: 10-05-2022 End: 10-05-2022 [facility] Start: 07-07-2022 End: 07-07-[address] YAS STINSON Facility:[facility] Start: 04-15-[address] YAS STINSON Facility :[facility] Start: 04-14-2022 End: 04-15-[address] YAS STINSON Facility:[facility] Start: 03-03-2022 End: 03-03-2022 ambulatory Marzena Martines MD Work Phone: Gastroenterology Comment on above: H/O Clostridium diff icile infection (Primary Dx) Start: 03-03-2022 End: 03-03-2022 Telemedicine consultation with patient Marzena Martines MD Work Phone: [facility] Start: 08-05-[address] YAS STINSON Facility :[facility] Procedures Date Procedure Procedure Detail Performing Clinician Start: 08-22-2023 Follow-up visit Follow-up MILVIA VILLALPANDO Plan of Treatment Date Care Activity Detail Author Start: 05-27-2024 Influenza vaccination Influenza Vaccine (#1) [place] Barbara ramirez Start: 05-22-2024 End: 05-22-2024 Follow-up encounter 05/22/2024 4:00 PM EDT [facility] [address] [place] [address] Marzena Martines MD [address] [place] [address] Follow up virtual vis in 3-4 weeks Gastroenterology Comment on above: Follow up virtual vis in 3-4 weeks Start: 04-23-2024 End: 07-23-2024 C reactive protein [Mass/volume] in Serum or Plasma C-REACTIVE PROTEIN Lab Routine LLQ abdominal pain Bloating Expected: 04/23/2024, Expires: 07/23/2024 [facility] Comment on above: Expected: 04/23/2024, Expires: Start: 04-23-2024 End: 07-23-2024 CBC panel - Blood by Automated count COMPLETE BLOOD COUNT Lab Routine LLQ abdominal pain Bloating Expected: 04/23/2024, Expires: 07/23/2024 [facility] Comment on above: Expected: 04/23/2024, Expires: Start: 04-23-2024 End: 07-23-2024 [facility] HLA-DQ GENOTYPE [facility] HLA-DQ GENOTYPE Lab Routine LLQ abdominal pain Bloating Expected: 04/23/2024, Expires: 07/23/2024 [facility] Comment on above: Expected: 04/23/2024, Expires: Start: 04-23-2024 End: 07-23-2024 Choriogonadotropin ( test) [Presence] in Urine HCG, QUALITATIVE, URINE Lab Routine LLQ abdominal pain Bloating Expected: 04/23/2024, Expires: 07/23/2024 [facility] Work Phone: Comment on above: Expected: 04/23/2024, Expires: Start: 04-23-2024 End: 07-23-2024 Comprehensive metabolic 2000 panel - Serum or Plasma COMPREHENSIVE METABOLIC PANEL Lab Routine LLQ abdominal pain Bloating Expected: 04/23/2024, Expires: 07/23/2024 [facility] Comment on above: Expected: 04/23/2024, Expires: Start: 04-23-2024 End: 07-23-2024 Erythrocyte sedimentation rate SEDIMENTATION RATE, WESTERGREN Lab Routine LLQ abdominal pain Bloating Expected: 04/23/2024, Expires: 07/23/2024 [facility] Comment on above: Expected: 04/23/2024, Expires: Start: 04-23-2024 End: 07-23-2024 GLIADIN (DEAMINATED) ABS GLIADIN (DEAMINATED) ABS Lab Routine LLQ abdominal pain Bloating Expected: 04/23/2024, Expires: 07/23/2024 [facility] Comment on above: Expected: 04/23/2024, Expires: Start: 04-23-2024 End: 07-23-2024 IgA [Mass/volume] in Serum or Plasma IMMUNOGLOBULIN A Lab Routine LLQ abdominal pain Bloating Expected: 04/23/2024, Expires: 07/23/2024 [facility] Comment on above: Expected: 04/23/2024, Expires: Start: 04-23-2024 End: 07-23-2024 Tissue transglutaminase IgA Ab [Units/volume] in Serum TRANSGLUTAMINASE IGA Lab Routine LLQ abdominal pain Bloating Expected: 04/23/2024, Expires: 07/23/2024 [facility] Comment on above: Expected: 04/23/2024, Expires: Start: 09-26-2023 Behavioral Health Screening Behavioral Health Screening [facility] Start: 05-27-2023 Covid-19 Vaccine ( season) Covid-19 Vaccine () [facility] Start: 05-27-2022 Influenza vaccination INFLUENZA (Season Ended) [facility] Start: 05-24-2022 Urine microalbumin profile DTaP,Tdap,Td Vaccine (7 - Td or Tdap) [facility] Start: 2021 PAP TESTING PAP TESTING [facility] Start: 2021 Screening for malignant neoplasm of cervix Cervical Cancer Screening [facility] Start: 2019 Urine microalbumin profile DTAP,TDAP,TD (1 - Tdap) [facility] Start: 2018 Anxiety Screening Anxiety Screening [facility] Start: 2018 CHLAMYDIA SCREENING (18-24) CHLAMYDIA SCREENING (18-24) [facility] Start: 2018 Depression Screening Depression Screening [facility] Start: 2018 GC (GONORRHEA) SCREENING (18-24) GC (GONORRHEA) SCREENING (18-24) [facility] Start: 2018 HEPATITIS C SCREENING HEPATITIS C SCREENING [facility] Start: 2018 Hepatitis C screening Hepatitis C Screening [facility] Start: 2018 HIV SCREENING HIV SCREENING [facility] Start: 2018 HIV screening HIV Screening [facility] Start: 2018 Screening for Chlamydia trachomatis Chlamydia Screening (18-24) [facility] Start: 2016 Meningococcal B Vaccine: Consider Based On Risk (1 of 2 - Patient Seeks Protection) Meningococcal B Vaccine: Consider Based On Risk (1 of 2 - Patient Seeks Protection) [facility] Start: 2015 HPV Vaccine (1 - 3-dose series) HPV Vaccine (1 - 3-dose series) [facility] Start: 2014 PEDS TO ADULT TRANSITION ANNUAL ASSESSMENT PEDS TO ADULT TRANSITION ANNUAL ASSESSMENT [facility] Start: 2012 Adult depression screening assessment DEPRESSION SCREENING [facility] Start: 2012 PEDS TO ADULT TRANSITION INITIAL DISCUSSION PEDS TO ADULT TRANSITION INITIAL DISCUSSION [facility] Start: 2011 HPV VACCINE (1 - 2-dose series) HPV VACCINE (1 - 2-dose series) [facility] Start: 2010 MENINGOCOCCAL B: Consider based on risk (1 of 2 - Risk Bexsero 2-dose series) MENINGOCOCCAL B: Consider based on risk (1 of 2 - Risk Bexsero 2-dose series) [facility] Start: 2005 COVID-19 VACCINE (#1) COVID-19 VACCINE (#1) [facility] Calprotectin [Mass/m ass] in Stool CALPROTECTIN,FECAL Lab Routine LLQ abdominal pain Bloating Ordered: 04/23/2024 [facility] Comment on above: Ordered: 04/23/2024 Clostridioides diffi cile toxin genes [Presence] in Stool by ARGENIS with probe detection C. DIFFICILE PCR Lab Routine LLQ abdominal pain Bloating Ordered: 04/23/2024 [facility] Comment on above: Ordered: 04/23/2024 ENTERIC BACTERIAL PA RIVKA BY PCR ENTERIC BACTERIAL PANEL BY PCR Lab Routine LLQ abdominal pain Bloating Ordered: 04/23/2024 [facility] Comment on above: Ordered: 04/23/2024 FECAL LACTOFERRIN/LEUKOCYTES FECAL LACTOFERRIN/LEUKOCYTES Lab Routine LLQ abdominal pain Bloating Ordered: 04/23/2024 [facility] Comment on above: Ordered: 04/23/2024 Giardia lamblia+Cryptosporidium sp Ag [Presence] in Stool by Immunoassay CRYPTOSPORIDIUM AND GIARDIA ANTIGENS BY EIA Microbiology Routine LLQ abdominal pain Bloating Ordered: 04/23/2024 [facility] Comment on above: Ordered: 04/23/2024 End: 05-23-2025 XR Abdomen Supine and Upright XR ABDOMEN 2V ROUTINE SUPINE W UPRIGHT/DECUB/CTL Radiology Routine LLQ abdominal pain Bloating 1 Occurrences starting 04/23/2024 until 05/23/2025 [facility] Comment on above: 1 Occurrences starting 04/23/2024 until 05/23/2025 XR Abdomen Supine an d Upright XR ABDOMEN 2V ROUTINE SUPINE W UPRIGHT/DECUB/CTL Radiology Routine LLQ abdominal pain Bloating 05/07/2024 9:35 AM EDT [facility] Work Phone: Payers Date Payer Category Payer Medicaid [employer] MEDICAID [employer] [employer] MED[place] [id number] 2024-Present [phone] [address] [place] [address] Medicaid [id number] 2024 Private Health Insurance [id number] 2022 Medicaid [id number] 2021 Medicaid [employer]ICA[employer] [id number] 2021-Present [phone] [address] [place] [address] Medicaid [id number] 2000 Unknown [id number] 2000 Unknown [id number] 2000 Unknown [id number] 2000 Unknown [id number] 2000 Unknown [id number] 2000 Unknown [id number] 1959 Self-pay 1959 Unknown [id number] Social History Date Type Detail [facility] Start: 2000 Sex Assigned At Not on file [facility] Start: 10-14-2022 End: 04-23-2024 History of Social function [facility] Start: 10-14-2022 End: 04-23-2024 Area Deprivation Index [facility] National Score (1-10 0), lower number is lower risk 94 [facility] Clinical Notes 03-03-2022 to 05-22-2024 Marzena Martines MD - 05/22/2024 4:00 PM Melissa eRyes RT(R) - 05/07/2024 9:10 AM EDTMtravis, Noam - 04/23/2024 1:33 PM Marzena Morales MD - 04/20/2024 10:48 AM EDT Note Date & Type Note Facility 05-22-2024 History of Present illness Narrative Follow Up Zoom Visit There were no vitals filed for this visit. I have communicated my name and active licensure. The patient's identity and physical location were verified at the time of this visit. Either the patient or their legal small business sales representative has been informed of the risks and benefits of -- and alternatives to -- treatment through a remote evaluation and consents to proceed with the evaluation remotely. Current Medications: Current Outpatient Medications Medication Sig Dispense Refill multivit with iron,minerals (MULTIVITAMIN AND MINERALS ORAL) Take by mouth once daily. Bifidobacterium infantis (ALIGN) 10.5 mg (10 million cell) chew Take by mouth. (Patient not taking: Reported on 04/11/2024) No current facility-administered medications for this visit. Follow up regarding:Post prandial LLQ Abdominal discomfort with RLQ discomfort as well, bloating R/O infectious etiology, IBD and Celiac sprue sprue R/O lactose intolerance H/O endometriosis Interval Events: Latest Ref Rng 05/07/2024 Protein, Total 6.3 - 8.0 g/dL 7.5 Albumin 3.9 - 4.9 g/dL 4.4 Calcium 8.5 - 10.2 mg/dL 9.1 Bilirubin, Total 0.2 - 1.3 mg/dL 0.4 Alkaline Phosphatase 34 - 123 U/L 60 AST 13 - 35 U/L 16 ALT 7 - 38 U/L 11 Glucose 74 - 99 mg/dL 82 BUN 7 - 21 mg/dL 11 Creatinine 0.58 - 0.96 mg/dL 0.57 (L) Sodium 136 - 144 mmol/L 139 Potassium 3.7 - 5.1 mmol/L 4.4 Chloride 98 - 107 mmol/L 101 CO2 22 - 30 mmol/L 26 Anion Gap 8 - 15 mmol/L 12 eGFR >=60 mL/min/1.73m 130 WBC 3.70 - 11.00 k/uL 7.25 RBC 3.90 - 5.20 m/uL 4.35 Hemoglobin 11.5 - 15.5 g/dL 12.8 Hematocrit 36.0 - 46.0 % 39.3 MCV 80.0 - 100.0 fL 90.3 MCH 26.0 - 34.0 pg 29.4 MCHC 30.5 - 36.0 g/dL 32.6 RDW-CV 11.5 - 15.0 % 13.5 Platelet Count 150 - 400 k/uL 249 MPV 9.0 - 12.7 fL 8.9 (L) Absolute nRBC <0.01 k/uL <0.01 ORTIZ Interpretation The HLA-DQ genotype of the patient is supportive of an increased risk of celiac disease. HLA-DQA1 Genotype HLA-DQA1*: 05, 01 HLA-DQB1 Genotype HLA-DQB1*: 02:01, 06 Celiac Risk Haplotype Positive Celiac Category Category 3 Campylobacter jejuni/coli DNA Not Detected Not detected Salmonella species DNA Not Detected Not detected Shiga-like toxin producing E. coli (STEC) DNA Not Detected Not detected Shigella/Enteroinvasive E. coli (EIEC) DNA Not Detected Not detected Cryptosporidium Antigen by EIA Negative Negative for Cryptosporidium by EIA. Giardia Antigen by EIA Negative Negative for Giardia lamblia by EIA. CALPROTECTIN, FECAL QUANTITATIVE <50 ug/g 32.8 CALPROTECTIN, FECAL INTERP Normal Normal Transglutaminase IgA Abs <4 U/mL <2 Transglutaminase IgA Abs Interpretation Negative Negative Gliadin Ab, IgA <20 Units 5 Gliad Deamidated IgA Qual Negative, Test not Indicated Negative Gliadin Ab, IgG <20 Units 1 Gliad Deamidated IgG Qual Negative, Test not Indicated Negative Test Results Negative Negative for lactoferrin, which may indicate the absence of fecal white blood cells C. difficile PCR Negative for C. difficile toxin by PCR Negative for C. difficile toxin by PCR HCG Qualitative, Urine Negative Negative WSR 0 - 20 mm/hr 6 CRP <0.9 mg/dL <0.3 IgA 70 - 400 mg/dL 203 Legend: (L) Low Subjective: Patient to have a laparoscopy to evaluate for endometriosis. Patient has been bloated today. Low grade temporarily T99.1 today. Occasional LLQ. Endometriosis since 19. Lower bowels can see her ovaries since she was 19. Patient with painful menstrual periods. Objective: Deferred Impression: Left lower quadrant discomfort with bloating-rule out recurrent endometriosis of the pelvis Plan: The patient Laparoscopy in June, to Reevaluate Her Pelvic Area for Endometriosis. If the Exam Is Unremarkable Then She Will Call to Reschedule Another Follow-Up Appointment I spent a total of 11 minutes on the date of the service which included preparing to see the patient, [id number] patient care, completing clinical documentation, and counseling and educating the patient/family/caregiver. Marzena Martines MD documented in this encounter [facility] 05-22-2024 Note HNO ID: [id number] Author: MARZENA MARTINES MD Service: ? Author Type: Physician Type: Progress Notes Filed: 05/22/2024 17:04 Note Text: Follow Up Zoom Visit There were no vitals filed for this visit. I have communicated my name and active licensure. The patient's identity and physical location were verified at the time of this visit. Either the patient or their legal small business sales representative has been informed of the risks and benefits of -- and alternatives to -- treatment through a remote evaluation and consents to proceed with the evaluation remotely. Current Medications: Current Outpatient Medications Medication Sig Dispense Refill multivit with iron,minerals (MULTIVITAMIN AND MINERALS ORAL) Take by mouth once daily. Bifidobacterium infantis (ALIGN) 10.5 mg (10 million cell) chew Take by mouth. (Patient not taking: Reported on 04/11/2024) No current facility-administered medications for this visit. Follow up regarding:Post prandial LLQ Abdominal discomfort with RLQ discomfort as well, bloating R/O infectious etiology, IBD and Celiac sprue sprue R/O lactose intolerance H/O endometriosis Interval Events: Latest Ref Rng 05/07/2024 Protein, Total 6.3 - 8.0 g/dL 7.5 Albumin 3.9 - 4.9 g/dL 4.4 Calcium 8.5 - 10.2 mg/dL 9.1 Bilirubin, Total 0.2 - 1.3 mg/dL 0.4 Alkaline Phosphatase 34 - 123 U/L 60 AST 13 - 35 U/L 16 ALT 7 - 38 U/L 11 Glucose 74 - 99 mg/dL 82 BUN 7 - 21 mg/dL 11 Creatinine 0.58 - 0.96 mg/dL 0.57 (L) Sodium 136 - 144 mmol/L 139 Potassium 3.7 - 5.1 mmol/L 4.4 Chloride 98 - 107 mmol/L 101 CO2 22 - 30 mmol/L 26 Anion Gap 8 - 15 mmol/L 12 eGFR >=60 mL/min/1.73m? 130 WBC 3.70 - 11.00 k/uL 7.25 RBC 3.90 - 5.20 m/uL 4.35 Hemoglobin 11.5 - 15.5 g/dL 12.8 Hematocrit 36.0 - 46.0 % 39.3 MCV 80.0 - 100.0 fL 90.3 MCH 26.0 - 34.0 pg 29.4 MCHC 30.5 - 36.0 g/dL 32.6 RDW-CV 11.5 - 15.0 % 13.5 Platelet Count 150 - 400 k/uL 249 MPV 9.0 - 12.7 fL 8.9 (L) Absolute nRBC <0.01 k/uL <0.01 ORTIZ Interpretation The HLA-DQ genotype of the patient is supportive of an increased risk of celiac disease. HLA-DQA1 Genotype HLA-DQA1*: 05, 01 HLA-DQB1 Genotype HLA-DQB1*: 02:01, 06 Celiac Risk Haplotype Positive Celiac Category Category 3 Campylobacter jejuni/coli DNA Not Detected Not detected Salmonella species DNA Not Detected Not detected Shiga-like toxin producing E. coli (STEC) DNA Not Detected Not detected Shigella/Enteroinvasive E. coli (EIEC) DNA Not Detected Not detected Cryptosporidium Antigen by EIA Negative Negative for Cryptosporidium by EIA. Giardia Antigen by EIA Negative Negative for Giardia lamblia by EIA. CALPROTECTIN, FECAL QUANTITATIVE <50 ug/g 32.8 CALPROTECTIN, FECAL INTERP Normal Normal Transglutaminase IgA Abs <4 U/mL <2 Transglutaminase IgA Abs Interpretation Negative Negative Gliadin Ab, IgA <20 Units 5 Gliad Deamidated IgA Qual Negative, Test not Indicated Negative Gliadin Ab, IgG <20 Units 1 Gliad Deamidated IgG Qual Negative, Test not Indicated Negative Test Results Negative Negative for lactoferrin, which may indicate the absence of fecal white blood cells C. difficile PCR Negative for C. difficile toxin by PCR Negative for C. difficile toxin by PCR HCG Qualitative, Urine Negative Negative WSR 0 - 20 mm/hr 6 CRP <0.9 mg/dL <0.3 IgA 70 - 400 mg/dL 203 Legend: (L) Low Subjective: Patient to have a laparoscopy to evaluate for endometriosis. Patient has been bloated today. Low grade temporarily T99.1 today. Occasional LLQ. Endometriosis since 19. Lower bowels can see her ovaries since she was 19. Patient with painful menstrual periods. Objective: Deferred Impression: Left lower quadrant discomfort with bloating-rule out recurrent endometriosis of the pelvis Plan: The patient Laparoscopy in June, to Reevaluate Her Pelvic Area for Endometriosis. If the Exam Is Unremarkable Then She Will Call to Reschedule Another Follow-Up Appointment I spent a total of 11 minutes on the date of the service which included preparing to see the patient, [id number] patient care, completing clinical documentation, and counseling and educating the patient/family/caregiver. Marzena Martines MD [facility] 05-07-2024 History of Present illness Narrative Radiology Service Progress Note PATIENT NAME: Nayana Nicole DATE OF SERVICE: May 07, 2024 TIME: 9:36 AM PATIENT IDENTITY VERIFICATION COMPLETED USING TWO (2) IDENTIFIERS: Name and Date of confirmed by patient verbally and Name and Date of confirmed by identification band. FALL SCREENING: Has the patient had 2 falls in the last year or 1 fall with injury or currently using an Ambulatory Assistive Device (Walker, Cane, Wheelchair, Crutches, etc.)? No PATIENT GENDER DATA: Female. status: : No status: N/A PATIENT RELEVANT IMPLANT DATA REVIEWED: Not Applicable PATIENT PRESENTS WITH AN IMPLANTABLE OR ATTACHED SERVICE COUNTER CASHIER: No RADIOLOGY DEPARTMENT: General X-ray: Exam(s) Completed: Abdomen X-Ray: Abdomen with Upright PERIPHERAL IV DATA: Not applicable SIGNED BY: NUNO Kohler) May 07, 2024 9:36 AM documented in this encounter [facility] 05-07-2024 Note HNO ID: [id number] Author: MELISSA MONTGOMERY RT (R) Service: ? Author Type: Technologist Type: Progress Notes Filed: 05/07/2024 09:37 Note Text: Radiology Service Progress Note PATIENT NAME: Nayana Nicole DATE OF SERVICE: May 07, 2024 TIME: 9:36 AM PATIENT IDENTITY VERIFICATION COMPLETED USING TWO (2) IDENTIFIERS: Name and Date of confirmed by patient verbally and Name and Date of confirmed by identification band. FALL SCREENING: Has the patient had 2 falls in the last year or 1 fall with injury or currently using an Ambulatory Assistive Device (Walker, Cane, Wheelchair, Crutches, etc.)? No PATIENT GENDER DATA: Female. status: : No status: N/A PATIENT RELEVANT IMPLANT DATA REVIEWED: Not Applicable PATIENT PRESENTS WITH AN IMPLANTABLE OR ATTACHED SERVICE COUNTER CASHIER: No RADIOLOGY DEPARTMENT: General X-ray: Exam(s) Completed: Abdomen X-Ray: Abdomen with Upright PERIPHERAL IV DATA: Not applicable SIGNED BY: RT Jose F(José Miguel) May 07, 2024 9:36 AM [facility] 04-23-2024 History of Present illness Narrative Called patient patient stated that she would give us a call back to scheduled at a later date Follow Up Zoom Visit There were no vitals filed for this visit. I have communicated my name and active licensure. The patient's identity and physical location were verified at the time of this visit. Either the patient or their legal small business sales representative has been informed of the risks and benefits of -- and alternatives to -- treatment through a remote evaluation and consents to proceed with the evaluation remotely. Current Medications: Current Outpatient Medications Medication Sig Dispense Refill multivit with iron,minerals (MULTIVITAMIN AND MINERALS ORAL) Take by mouth once daily. Bifidobacterium infantis (ALIGN) 10.5 mg (10 million cell) chew Take by mouth. (Patient not taking: Reported on 04/11/2024) No current facility-administered medications for this visit. Follow up regarding: Interval Events: Subjective: Patient with prior H/O C. diff. H/O endometriosis. BM's are never solid. Stools are usually loose. Always bloated always with watery diarrhea Stool is also soft . never tubular. Lower left abdominal pain after eating. Recently camping. Sometimes she is unable to get the stool out of her rectum. She wakes up with a stomach ache followed by need to have a BM. She has had random low grade temporarily elevations to 99.1-99.8 in the past month Objective: Deferred Impression: Post prandial LLQ Abdominal discomfort with RLQ discomfort as well, bloating R/O infectious etiology, IBD and Celiac sprue sprue R/O lactose intolerance H/O endometriosis Plan: Urine HCG, KUB and upright, stool evaluation, celiac sprue studies, CBC, CMP ESR and CRP Follow up virtual vis in 3-4 weeks Trial of Lactaid tablets when eating dairy products an when eating food not prepared by the patient Visist length 20 minutes Marzena Martines MD documented in this encounter [facility] 04-23-2024 Note HNO ID: [id number] Author: ?, ?, ? Service: ? Author Type: ? Type: Progress Notes Filed: 04/23/2024 13:33 Note Text: Called patient patient stated that she would give us a call back to scheduled at a later date [facility] 04-20-2024 Note HNO ID: [id number] Author: MARZENA MARTINES MD Service: ? Author Type: Physician Type: Progress Notes Filed: 04/23/2024 11:03 Note Text: Follow Up Zoom Visit There were no vitals filed for this visit. I have communicated my name and active licensure. The patient's identity and physical location were verified at the time of this visit. Either the patient or their legal small business sales representative has been informed of the risks and benefits of -- and alternatives to -- treatment through a remote evaluation and consents to proceed with the evaluation remotely. Current Medications: Current Outpatient Medications Medication Sig Dispense Refill multivit with iron,minerals (MULTIVITAMIN AND MINERALS ORAL) Take by mouth once daily. Bifidobacterium infantis (ALIGN) 10.5 mg (10 million cell) chew Take by mouth. (Patient not taking: Reported on 04/11/2024) No current facility-administered medications for this visit. Follow up regarding: Interval Events: Subjective: Patient with prior H/O C. diff. H/O endometriosis. BM's are never solid. Stools are usually loose. Always bloated always with watery diarrhea Stool is also soft . never tubular. Lower left abdominal pain after eating. Recently camping. Sometimes she is unable to get the stool out of her rectum. She wakes up with a stomach ache followed by need to have a BM. She has had random low grade temporarily elevations to 99.1-99.8 in the past month Objective: Deferred Impression: Post prandial LLQ Abdominal discomfort with RLQ discomfort as well, bloating R/O infectious etiology, IBD and Celiac sprue sprue R/O lactose intolerance H/O endometriosis Plan: Urine HCG, KUB and upright, stool evaluation, celiac sprue studies, CBC, CMP ESR and CRP Follow up virtual vis in 3-4 weeks Trial of Lactaid tablets when eating dairy products an when eating food not prepared by the patient Visist length 20 minutes Marzena Martines MD [facility] 04-11-2024 Note HNO ID: [id number] Author: MARZENA MARTINES MD Service: ? Author Type: Physician Type: Progress Notes Filed: 04/16/2024 09:03 Note Text: Follow Up Zoom Visit This patient was a no show. Marzena Martines MD [facility] 04-11-2024 History of Present illness Narrative Follow Up Zoom Visit This patient was a no show. Marzena Martines MD documented in this encounter [facility] 08-22-2023 Note Subjective Patient ID: Nayana Nicole is a 23 y.o. female who presents for Follow-up. 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 Musculoskeletal: Positive for arthralgias. Negative for back pain and joint swelling. Skin: Negative for rash. Objective Visit Vitals BP 109/75 (BP Location: Left arm, Patient Position: Sitting) Pulse 86 Physical Exam Assessment/Plan 23 YO F presented for evaluation of hand pain # joint pain in hands with weakness in hands and numbness in fingers, physical exam was negative for synovitis or joint swelling , - normal IGOR, ESR, CRP , CCP ,. normal xrays check EMG - negative for Carpal tunnel syndrome - her symptoms were likely related to her work which includes heavy lifting, now improving after she changed her job - not on any medication for pain or fibromyalgia, she could not tolerate gabapentin - as needed OTC tylenol, NSAIDS for sever pain # weakly positive RF 26 - no symptoms suggestive of synovitis or active RA, had negative CCP - grandfather has RA, counseled the patient about the importance of smoking cessation , she has stopped smoking for the past 2 months -xrays of hands are within normal #lumbar radiculopathy Improved with job change No diagnosis found. No orders of the defined types were placed in this encounter. No results found for this or any previous visit (from the past 36 hour(s)). Follow up in about 6 months (around 02/20/2024). [facility] 03-09-2023 Note Attestation signed by Renee Baker MD at 03/09/2023 2:21 PM GE: I discussed the patient with the resident while the patient was in the office or immediately after the patient was seen. We reviewed the blanchard portions of the service and discussed the plan with the resident. I confirm the resident's documentation. Please note there may be additional personal documentation from me. Subjective Patient ID: Nayana Nicole is a 22 y.o. female who presents for Follow-up (follow up MRI/hip and back pain). HPI Reports worsening back pain radiating down her legs, pain is worse in the morning with with activities She has not tried gabapentin yet Review of Systems Constitutional: Negative for activity change, appetite change, fatigue and fever. HENT: Negative for mouth sores and trouble swallowing. Respiratory: Negative for chest tightness and shortness of breath. Cardiovascular: Negative for chest pain and palpitations. Gastrointestinal: Negative for diarrhea, nausea and vomiting. Musculoskeletal: Positive for arthralgias and back pain. Negative for joint swelling. Skin: Negative for rash. Neurological: Negative for light-headedness and headaches. Objective There were no vitals taken for this visit. Physical Exam Constitutional: Appearance: Normal appearance. HENT: Head: Normocephalic and atraumatic. Pulmonary: Effort: Pulmonary effort is normal. Musculoskeletal: General: No swelling or tenderness. Normal range of motion. Skin: General: Skin is warm. Neurological: General: No focal deficit present. Mental Status: She is alert and oriented to person, place, and time. Assessment/Plan 21 YO F presented for evaluation of hand pain # joint pain in hands with weakness in hands and numbness in fingers, physical exam was negative for synovitis or joint swelling , - normal IGOR, ESR, CRP , CCP ,. normal xrays check EMG - negative for Carpal tunnel syndrome - her symptoms are likely related to her work which includes heavy lifting, counseled patient about stress management # weakly positive RF 26 - no symptoms suggestive of synovitis or active RA, had negative CCP - grandfather has RA, counseled the patient about the importance of smoking cessation , she has stopped smoking for the past 2 months -xrays of hands are within normal #lumbar radiculopathy xray normal MRI showed L5-S1 there is mild degenerative disc disease. There is mild disc bulge without spinal stenosis. Will refer to PT, she did not try gabapentin yet, advised to start it as her symptoms are interfering with daily activites Consider ref to pain management Seen By Dr Dennis and Dr Baker RTC [address] [facility] 10-05-2022 Note Date of Telehealth V isit: 10/06/22 The patient was notified that using 3rd libertarian telecommunication application (e.g. [email or web address]) is not HIPAA compliant and may carry some privacy risks: This visit was conducted [id number] with the use of audio technology using Nuenz between patient and the provider for a virtual visit. Verbal consent to provide and Tebill this service was obtained on: 10/06/22 No signature was obtained due to the COVID-19 pandemic. Patient Location: Chief Complaint: History of Present Illness: Subjective Patient ID: Nayana Nicole is a 22 y.o. female who presents for Follow-up. HPI Date of Telehealth Visit: 10/05/22 The patient was notified that using 3rd libertarian telecommunication application (e.g. Oja.la) is not HIPAA compliant and may carry some privacy risks: This visit was conducted with the use of audio technology using Nuenz between patient and the provider for a virtual visit. Verbal consent to provide and Tebill this service was obtained on: 10/05/22 No signature was obtained due to the COVID-19 pandemic. Patient Location: home History of Present Illness: Has been doing well overall, noted pain in rib cage that started this week , worse with movement, did not start gabapentin yet, she has back MRI scheduled soon Review of Systems Constitutional: Negative for activity change, appetite change, fatigue and fever. HENT: Negative for mouth sores and trouble swallowing. Respiratory: Negative for chest tightness and shortness of breath. Cardiovascular: Negative for chest pain and palpitations. Gastrointestinal: Negative for diarrhea, nausea and vomiting. Musculoskeletal: Positive for arthralgias and back pain. Negative for joint swelling. Skin: Negative for rash. Neurological: Negative for light-headedness and headaches. Objective There were no vitals taken for this visit. Assessment/Plan # jointpain in hands with weakness in hands and numbness in fingers, physical exam was negative for synovitis or joint swelling , - normal IGRO, ESR, CRP , CCP ,. normal xrays check EMG - negative for Carpal tunnel syndrome - her symptoms are likely related to her work which includes heavy lifting, counseled patient about stress management # weakly positive RF 26 - no symptoms suggestive of synovitis or active RA, had negative CCP - grandfather has RA, counseled the patient about the importance of smoking cessation , she has stopped smoking -xrays of hands are within normal #lumbar radiculopathy xray normal No improvement physical therapy , MRI ordered - will start low dose gabapentin # Fibromyalgia Discussed with Grecia Time spent was 18 min Diagnoses and all orders for this visit: Fibromyalgia Lumbar radiculopathy Diagnosis Plan 1. Fibromyalgia 2. Lumbar radiculopathy No orders of the defined types were placed in this encounter. No results found for this or any previous visit (from the past 36 hour(s)). Follow up in about 4 months (around 02/02/2023). [facility] 03-03-2022 History of Present illness Narrative This patient was a No Show. Marzena Martines MD documented in this encounter [facility] Evaluation note Diagnosis H/O Clostridium difficile infection- Primary Personal history of other infectious and parasitic disease [facility] H/O Clostridium difficile infection- Primary Personal history of other infectious and parasitic disease [facility] Diagnosis LLQ abdominal pain- Primary Abdominal pain, left lower quadrant Bloating Flatulence, eructation, and gas pain [facility] Diagnosis LLQ abdominal pain Abdominal pain, left lower quadrant Bloating Flatulence, eructation, and gas pain [facility] Diagnosis LLQ abdominal pain- Primary Abdominal pain, left lower quadrant Bloating Flatulence, eructation, and gas pain [facility] Diagnostic Procedure Only (Routine) - New Request Specialty Diagnoses / Procedures Referred By Koko gonzalez Referred To Contact XR IMAGING Diagnoses LLQ abdominal pain Bloating Procedures XR ABDOMEN 2V ROUTINE SUPINE W UPRIGHT/DECUB/CTL RADIOLOGIC EXAM ABDOMEN 2 VIEWS Marzena Martines MD [address] [place] [address] [place] [address] Referral ID Status Reason Start Date Expiration Date Visits Requested Visits Authorized [id number] New Request Auto-Generat ed Referral 04/23/2024 05/23/2025 1 1 [facility] for visit Narrative* Diagnostic Procedure Only (Routine) - Closed Specialty Diagnoses / Procedures Referred By Koko gonzalez Referred To Contact XR IMAGING Diagnoses LLQ abdominal pain Bloating Procedures XR ABDOMEN 2V ROUTINE SUPINE W UPRIGHT/DECUB/CTL RADIOLOGIC EXAM ABDOMEN 2 VIEWS Marzena Matrines MD [address] [place] [address] [place] [address] Referral ID Status Reason Start Date Expiration Date V isits Requested Visits Authorized [id number] Closed Auto-Generate d Referral 04/23/2024 05/23/2025 1 1 [facility] Summary Purpose Family History No Family History Records FoundNo Family History Records FoundNo Family History Records FoundNo Family History Records FoundNo Family History Records FoundNo Family History Records Found Advance Directives No Advanced Directives Records FoundNo Advanced Directives Records FoundNo Advanced Directives Records FoundNo Advanced Directives Records FoundNo Advanced Directives Records FoundNo Advanced Directives Records Found Additional Source Comments INFORMATION SOURCE (unrecogn ized section and content) DATE CREATED AUTHOR [facility]22/2021 [facility] DATE CREATED AUTHOR AUTHOR'S ORGANIZ ATION 07/19/2022 [facility] DATE CREATED AUTHOR AUTHOR'S ORGANIZ ATION 08/22/2023 [facility] DATE CREATED AUTHOR AUTHOR'S ORGANIZ ATION 05/12/2024 [facility] DATE CREATED AUTHOR AUTHOR'S ORGANIZ ATION 05/26/2024 [facility] DATE CREATED AUTHOR AUTHOR'S ORGANIZ ATION 06/09/[address] [place] [address] [facility] EPIC Source Comments (unrecognize d section and content) In the event this informatio n is protected by the Federal Confidentiality of Alcohol and Drug Abuse Patient Records regulations: The Federal rules restrict any use of the information to criminally investigate or prosecute any alcohol or drug abuse patient.[facility] the event this information is protected by the Federal Confidentiality of Alcohol and Drug Abuse Patient Records regulations: The Federal rules restrict any use of the information to criminally investigate or prosecute any alcohol or drug abuse patient.[facility] the event this information is protected by the Federal Confidentiality of Alcohol and Drug Abuse Patient Records regulations: The Federal rules restrict any use of the information to criminally investigate or prosecute any alcohol or drug abuse patient.[facility] the event this information is protected by the Federal Confidentiality of Alcohol and Drug Abuse Patient Records regulations: The Federal rules restrict any use of the information to criminally investigate or prosecute any alcohol or drug abuse patient.[facility] the event this information is protected by the Federal Confidentiality of Alcohol and Drug Abuse Patient Records regulations: The Federal rules restrict any use of the information to criminally investigate or prosecute any alcohol or drug abuse patient.[facility] Reason for Visit (unrecogniz ed section and content) Reason Comments Follow Up Reason Comments H/O C. diff Reason Comments Change In Bowel Habits Reason Comments Recheck FOR RECORDS PERTAINING TO PATIENTS WHO ARE OR HAVE BEEN ENROLLED IN A CHEMICAL DEPENDENCY/SUBSTANCEABUSE PROGRAM, SOME INFORMATION MAY BE OMITTED. This clinical summary was aggregated from multiple sources. Caution should be exercised in using it in the provision of clinical care. This summary normalizes information from multiple sources, and as a consequence, information in this document may materially change the coding, format and clinical context of patient data. In addition, data may be omitted in some cases. CLINICAL DECISIONS SHOULD BE BASED ON THE PRIMARY CLINICAL RECORDS. [employer] provides no warranty or guarantee of the accuracy or completeness of information in this document.
[2024-07-06 06:47] LABS: Basophils Percent Auto 0.4 % (0.2-2.0); Eosinophils Absolute Auto 0.1 10^3/uL (0.0-0.7); Eosinophils Percent Auto 0.8 % (0.9-7.0); Hematocrit 41.8 % (36.0-48.0); Hemoglobin 13.5 g/dL (12.0-16.0); Immature Granulocytes Abs Auto 0.02 10^3/uL (0.00-0.03); Immature Granulocytes Pct Auto 0.3 % (0.0-0.5); Lymphocytes Absolute Auto 1.8 10^3/uL (1.2-3.8); Mean Corpuscular HGB Conc 32.3 g/dL (29.9-35.2); Mean Corpuscular Hemoglobin 29.3 pg (26.7-34.0); Mean Corpuscular Volume 90.7 fL (81.0-99.0); Mean Platelet Volume 8.7 fL (9.5-13.5); Monocytes Absolute Auto 0.5 10^3/uL (0.3-0.8); Monocytes Percent Auto 5.9 % (1.7-12.0); Neutrophils Absolute Auto 5.4 10^3/uL (1.4-6.5); Neutrophils Percent Auto 69.6 % (43.0-75.0); Platelet Count 255 10^3/uL (150-450); Red Blood Count 4.61 10^6/uL (4.20-5.40); Red Cell Distribution Width 13.2 % (11.0-15.0); White Blood Count 7.7 10^3/uL (4.0-11.0)
[2024-07-06 07:06] LABS: HCG Quantitative <1 mIU/mL
[2024-07-06] MEDS: 0.9 % SODIUM CHLORIDE 500 ML 50 ML IV (07:12)
[2024-07-06] MEDS: METHYLENE BLUE 50 MG/10 ML AMPULE 5 ML INJ (09:23)
--- NOTE | 2024-07-06 09:35 | PM.ONB ---
Brief Operative Note Date of procedure: 07/06/24 Pre-op diagnosis general: pelvic pain, suspected tubal dysfunction Post-op diagnosis: same as pre-op Procedure: NAME OF PROCEDURE: [diagnostic laparoscopy with chromopertubation ] PROCEDURE: The patient was taken back to the Operating Room where she was placed in dorsal lithotomy position after given general anesthesia. The patient was prepped and draped in normal sterile fashion. A humi manipulator was placed into the patient's cervix and into the uterus. Attention was turned to the patient's abdomen, where a small umbilical incision was made. The fascia was tented using Italo clamps and the fascia was entered sharply. Confirmation of intraabdominal placement of the 10 mm port was confirmed under direct visualization using a laparoscope. The patient's abdomen was then insufflated using CO2 gas with approximately 4 liters. A second port was placed left laterally, this was done under direct visualization with a 5 mm port. Survey of the patient's abdomen demonstrated normal liver and gallbladder. Survey of the patient's pelvic anatomy demonstrated normal appearing rt and lt ovary as well as normal appearing uterus. bilateral blunting of distal tips of tubes, eventual spillage of dye from unknown side. No endometrial implants could be noted, no evidence of any pelvic disease was seen, normal appearing pelvic cavity. All instruments were removed from the patient's abdomen. The patient's abdomen was deinsufflated of CO2 gas. The patient tolerated the procedure well. Sponge stick was removed from the patient's vagina. The patient's infraumbilical fascia was closed using #0 Vicryl on a GI needle. The patient's skin was closed laterally and infraumbilically using 4-0 Vicryl. The patient tolerated the procedure well. Sponge, lap and needle counts were correct x 2. The patient was taken to Recovery Room in stable condition. Anesthesia: GETA Surgeon: Ed Arciniega Streetcar Repairer Helper: Rosina Dickson Estimated blood loss (mL): 5 Pathology: none sent Condition: stable Disposition: PACU Urinary Catheter Management Urinary Catheter Management Urethral: Cath placed during this visit: no
[2024-07-06] MEDS: OXYCODONE HCL/ACETAMINOPHEN 5MG/325MG 2 TAB PO (09:58)
[2024-07-06] MEDS: PROMETHAZINE HCL 25 MG TABLET PO (10:15)
[2024-07-06] MEDS: MEPERIDINE HCL/PF 25 MG/ML VIAL IM (11:00)
== END 2024-07-06 11:45 | disposition home or self-care (01) ==
PROVIDERS: PCP Nurse Practitioner Family; Visit Provider Obstetrics & Gynecology
PROC: (CPT 840; principal; 2024-07-06 08:05)
DX: R10.2 Pelvic and perineal pain (principal); N83.9 Noninflammatory disorder of ovary, fallopian tube and broad ligament, unspecified; F17.290 Nicotine dependence, other tobacco product, uncomplicated; M79.7 Fibromyalgia; K21.9 Gastro-esophageal reflux disease without esophagitis
CPT/HCPCS: 00840; 00952; 49320; 58350; 36415; 84702; 85025; J0330; J1100; J1171; J1885; J2175; J2250; J2405; J2704; J3010; Q0169

== ENCOUNTER 2025-03-13 20:50 | Outpatient (REF) | payer MEDICAID, SELFPAY ==
--- OUTSIDE RECORDS SUMMARY | 2025-03-13 14:00 | XMS_ITS | Encounter Summary ---
Author Organization [facility] Address [address] [place] [address] Care Team Providers Care Hourly Team Members Name Role Phone Mary Hanks MD Primary Care Provider [phone] Reason for Visit * Reason Comments Well Women Visit Encounter Details Date Type Department Care Team ([facility] Contact Info) Description 03/13/2025 2:00 PM EDT Office Visit [facility] [address] [place] [id number] Ed Arciniega, DO [address] [place] [address] Well woman exam with routine gynecological exam Social History Tobacco Use Types Packs/Day Years Used Date Smoking Tobacco: Former Cigarettes Q uit: 09/2019 Alcohol Use Standard Drinks/Week Comments Never 0 (1 standard drink = 0.6 oz pur e alcohol) caffeine: 1-2 cups per day Comments No Sex and Gender Information Value Date Recorded Sex Assigned at Not on file Legal Sex Female 10:09 PM EDT Gender Identity Not on file Sexual Orientation Not on file documented as of this encounter Last Filed Vital Signs Vital Sign Reading Time Taken Comments Blood Pressure 112/80 03/13/2025 2:03 PM EDT Pulse - - Temperature - - Respiratory Rate - - Oxygen Saturation - - Inhaled Oxygen Concentration - - Weight 73.3 kg (161 lb 8 oz) 03/13/2025 2:03 PM EDT Height - - Body Mass Index 28.61 07/12/2024 11:22 AM EDT documented in this encounter Progress Notes * Jessica Vega MA - 03/13/2025 2:00 PM EDT ` * Jeanne Magallon LPN - 03/13/2025 2:00 PM EDT Reason for Appointment: Patient ID: Nayana Swan is a 24 y.o. female who presents for Well Women Visit Patient presents today for Annual Exam. MEDICATIONS Current Outpatient Medications Medication Instructions cholecalciferol (VITAMIN D-3) 50,000 Units, Oral EQ Pain Reliever 500 mg, Oral, Every 6 hours PRN ibuprofen 600 mg, Oral, Every 6 hours PRN Multiple Vitamin (multivitamin) capsule 1 capsule, Oral, Daily Probiotic Product (Align) chewable tablet Oral ALLERGIES Allergies Allergen Reactions Acetaminophen-Codeine Other Reaction(s): Unknown Hydrocodone Dizziness, Fever and Hives Codeine GI intolerance and Rash Hydrocodone-Acetaminophen Hives and Rash Other Reaction(s): Hives PROBLEMS Active Ambulatory Problems Diagnosis Date Noted No Active Ambulatory Problems Resolved Ambulatory Problems Diagnosis Date Noted No Resolved Ambulatory Problems Past Medical History: Diagnosis Date Bulging lumbar disc Depression Infertility, female Irregular bleeding HISTORY PAST MEDICAL HISTORY SOCIAL HISTORY Past Medical History: Diagnosis Date Bulging lumbar disc Depression Infertility, female Irregular bleeding Social History Tobacco Use Smoking status: Former Current packs/day: 0.00 Types: Cigarettes Quit date: 09/2019 Years since quittin.4 Smokeless tobacco: Not on file Substance Use Topics Alcohol use: Never Comment: caffeine: 1-2 cups per day Drug use: Not on file FAMILY HISTORY Family History Problem Relation Name Age of Onset Hypertension Father SURGICAL HISTORY Past Surgical History: Procedure Laterality Date LAPAROSCOPY DIAGNOSTIC / BIOPSY / ASPIRATION / LYSIS 07/06/2024 PAP SMEAR 05/04/2021 normal PA LAP,LYSIS OF ADHESIONS lysis of adhesions on ovary WISDOM TOOTH EXTRACTION wisdom teeth REVIEW OF SYSTEMS Review of Systems: Review of Systems Constitutional: Negative. HENT: Negative. Eyes: Negative. Respiratory: Negative. Cardiovascular: Negative. Gastrointestinal: Negative. Genitourinary: Negative. Musculoskeletal: Negative. Skin: Negative. Neurological: Negative. All other systems reviewed and are negative. Hematological: Negative. Endocrine: Negative. Allergic/Immunologic: Negative. OBJECTIVE Objective: Physical Exam Constitutional: Appearance: Normal appearance. She is well-developed. Genitourinary: Vulva normal. Cardiovascular: Rate and Rhythm: Normal rate and regular rhythm. Pulmonary: Effort: Pulmonary effort is normal. Breath sounds: Normal breath sounds. Abdominal: General: Bowel sounds are normal. There is no distension. Palpations: Abdomen is soft. Tenderness: There is no abdominal tenderness. There is no guarding or rebound. Musculoskeletal: General: No swelling. Normal range of motion. Right lower leg: No edema. Left lower leg: No edema. Neurological: Mental Status: She is alert and oriented to person, place, and time. Skin: General: Skin is warm and dry. Psychiatric: Mood and Affect: Mood normal. Behavior: Behavior normal. Vitals and nursing note reviewed. Exam conducted with a production analyst present. Vitals: Estimated body mass index is 28.61 kg/m?? as calculated from the following: Height as of 07/12/24: 5' 3 . Weight as of this encounter: 161 lb 8 oz. BP: 112/80 Patient's last menstrual period was 02/12/2025 (approximate). ASSESSMENT & PLAN ICD-10-CM 1. Well woman exam with routine gynecological exam Z01.419 Pap Smear No orders of the defined types were placed in this encounter. Annual Wellness Exam: Patient presents today for routine annual exam. Patient states she has no current complaints. Patients vitals were reviewed and within normal limits. Growth and development is noted to be appropriate for age. Menstrual history is noted to be regular with no concerns reported. No mental health concerns was expressed. Pap Smear: Speculum was inserted into the vagina and pap was obtained without difficulty. No HPV testing was performed per age guideline. Patient was advised that pap results could take anywhere from 7 to 10 days to receive and our office will reach out to the patient with those once we have them. Patient canalso view results via [employer]. I reinforced importance of condom use for STI prevention. Patient declined cultures to be performed with today's visit. Breast Exam: Upon examination, clinical breast exam was noted to be normal. Patient was counseled on breast self-awareness, including the importance of knowing what is normal for her own breasts and promptly reporting any changes such as new lumps, skin dimpling, nipple discharge, or pain. Screening mammogram recommended annually beginning at age 40 or earlier if risk factors are present. Discussed signs and symptoms of breast cancer and when to seek medical attention. Answered all patient questions. Contraceptive Counseling (if applicable): Patient is currently using no control at this time as a form of contraceptive. Patient does not desire control at this time. Follow Up: Patient is to return to our office in one year for annual exam unless needed otherwise. Documented by Jeanne Magallon LPN on behalf of: Ed Arciniega DO documented in this encounter Plan of Treatment Scheduled Orders Name Type Priority Associated Diagnoses Orde r Schedule Pap Smear Pathology and Cytology Routine Well woman exam with routine gynecological exam Ordered: 03/13/2025 documented as of this encounter Visit Diagnoses Diagnosis Well woman exam with routine gynecological exam Routine gynecological examination documented in this encounter Care Teams Hourly Team Members Relationship Specialty Start Date End Date Mary Hanks MD PCP - General Family Medicine 05/09/24 documented as of this encounter
--- OUTSIDE RECORDS SUMMARY | 2025-03-13 20:54 | XMS_ITS | Clinical Summary ---
Author Organization [facility] Address [address] [place] [address] Care Team Providers Care Folder Seamer Automatic Name Role Phone Mary Hanks AMADOU - SPINNER OPEN END Primary Care Provider Allergies Active Allergy Reactions Criticality Noted Date Comments Codeine Rash Low 07/11/2023 Other Reaction(s): GI intolerance Hydrocodone Dizziness or Vertigo,Other (See Comments),Hives 01/02/2018 Medications Multiple Vitamins-Minera ls (THERAPEUTIC MULTIVITAMIN-OK NERALS) tablet Take 1 tablet by mouth daily Active vitamin D 50 MCG (1999) CAPS capsule Take 1 capsule by mouth daily Active Encounters Date Type Department Care Team Description 12/31/2024 8:23 AM EDT - 12/31/2024 11:59 PM EDT Hospital Encounter [facility] [address] [place] [address] Irregular menses Discharge Disposition: Home or Self Care 12/31/2024 Results Follow-Up [facility] Obstetrics and Gynecology [address] [place] [id number] Megan Sharma APRN - CNM 12/18/2024 9:00 AM EDT Ancillary Procedure [facility] OBSTETRICS & [facility]YNECOLOGY Part of [facility] [address] [place], [place] [id number] Irregular menses from Last 3 Months Family History Medical History Relation Name Comments Hypertension Father Ovarian Cancer Maternal Grandmother Uterine Cancer Maternal Grandmother Neurodegenerative disease Mother Relation Name Status Comments Brother 1 Alive Brother 2 Alive Father Alive Maternal Grandfather Alive Maternal Grandmother Mother Alive Paternal Grandfather Alive Paternal Grandmother Alive Sister Alive Social History Tobacco Use Types Packs/Day Years Used Date Smoking Tobacco: Every Day Cigarettes Smokeless Tobacco: Never Tobacco Cessation:Ready to Q uit: Not Asked; Counseling Given: Not Answered Alcohol Use Standard Drinks/Week Comments Yes 0 (1 standard drink = 0.6 oz pur e alcohol) social [facility] Utilities Answer Date Recorded In the past 12 months has th e icanbuy, gas, oil, or water company threatened to shut off services in your home? No 11/28/2024 PHQ-2 Answer Date Recorded PHQ-9 Total Score 2 11/28/2024 Hunger Vital Sign Answer Date Recorded Within the past 12 months, y ou worried that your food would run out before you got the money to buy more. Never true 11/29/19 25 Within the past 12 months, t he food you bought just didn't last and you didn't have money to get more. Never true 11/28/2024 PRAPARE - Transportation Answer Date Re corded In the past 12 months, has l ack of transportation kept you from medical appointments or from getting medications? No 01/2025 In the past 12 months, has l ack of transportation kept you from meetings, work, or from getting things needed for daily living? No 11/28/2024 Housing Stability Vital Sign Answer Terry e Recorded In the last 12 months, was t here a time when you were not able to pay the mortgage or rent on time? No 11/28/2024 In the past 12 months, how m any times have you moved where you were living? 0 11/28/2024 At any time in the past 12 m [facility], were you homeless or living in a senior care (including now)? No 11/28/2024 Food Insecurity Answer Date Recorded Within the past 12 months, y ou worried that your food would run out before you got the money to buy more. 1 11/28/2024 Within the past 12 months, t he food you bought just didn't last and you didn't have money to get more. 1 11/28/2024 Comments No Sex and Gender Information Value Date Recorded Sex Assigned at Not on file Legal Sex Female 9:40 AM EST Gender Identity Not on file Sexual Orientation Not on file Last Filed Vital Signs Vital Sign Reading Time Taken Comments Blood Pressure 116/78 11/28/2024 1:59 PM EST Pulse - - Temperature - - Respiratory Rate - - Oxygen Saturation - - Inhaled Oxygen Concentration - - Weight 76.2 kg (168 lb) 11/28/2024 1:59 PM EST Height 160 cm (5' 3 ) 11/28/2024 1:59 PM EST Body Mass Index 29.76 11/28/2024 1:59 PM EST Plan of Treatment Health Maintenance Due Date Last Done Comments Varicella vaccine (1 of 2 - 13+ 2-dose series) 2013 HIV screen 2015 HPV vaccine (1 - 3-dose series) 2015 Chlamydia/GC screen 2016 Hepatitis C screen 2018 DTaP/Tdap/Td vaccine (1 - Tdap) 2019 Hepatitis B vaccine (1 of 3 - 19+ 3-dose series) 2019 Pneumococcal 0-49 years Vaccine (1 of 2 - PCV) 2019 Pap smear 2021 COVID-19 Vaccine (1 - 2023-2 5 season) 2024 Flu vaccine (Season Ended) 2025 Depression Screen 11/28/2025 11/28/2024, 11/28/2024 Hepatitis A vaccine Aged Out No longe r eligible based on patient's age to complete this topic Hib vaccine Aged Out No longer eligi ble based on patient's age to complete this topic Meningococcal (ACWY) vaccine Aged Out No longer eligible based on patient's age to complete this topic Meningococcal B vaccine Aged Out No l onger eligible based on patient's age to complete this topic Polio vaccine Aged Out No longer elig ible based on patient's age to complete this topic Procedures Procedure Name Priority Date/Time Associated Diagnosis Comments PROGESTERONE Routine 12/31/2024 8:23 AM EDT Irregular menses US NON OB TRANSVAGINAL Routine 12/18/2024 9:33 AM EDT Irregular menses from Last 3 Months Results * Progesterone (12/31/2024 8:23 AM EDT) Progesterone 0.54 ng/mL 12/31/2024 8:23 AM EDT [facility] Comment: Female: Follicular phase <0.19 ng/mL Ovulation phase 0.06-4.14 ng/mL Luteal phase 4.11-14.5 ng/mL Postmenopausal <0.13 ng/mL BLOOD SPECIMEN / Unknown 12/31/2024 8:23 AM EDT 12/31/2024 8:24 AM EDT Megan Sharma APRN - ERIK CHEMISTRY ORDERA BLES Final Result [facility] [address] [place] [address], [facility] [phone] [facility] [address] [place] [address], [facility] [phone] * US NON OB TRANSVAGINAL (12/18/2024 9:33 AM EDT) Anatomical Region Laterality Modality Pelvis Ultrasound Narrative 12/21/2024 1:29 PM EDT UTERUS:retroverted, heterogeneous echo pattern ENDO:2mm in thickness RT. OVARY:seen, multiple follicles visualized around periphery of ovary LT. OVARY:seen, multiple follicles visualized around periphery of ovary Bilateral ovary appearance suggestive for PCOS Free fluid visualized in pelvis Megan Sharma APRN - CNM IMG US ORDERABLE S Final Result from Last 3 Months Insurance # [id number] MEDICAID Care Teams Folder Seamer Automatic Relationship Specialty Start Date End Date Mary Hanks APRN - NP [address] [place] [phone] PCP - General Family Medicine 11/28/24
--- OUTSIDE RECORDS SUMMARY | 2025-03-13 20:54 | XMS_ITS | Encounter Summary ---
Author Organization [facility] Address [address] [place], [place] [phone] Care Team Providers Care Music Pastor Name Role Phone Unavailable Primary Care Provider Unavailabl e Source Comments In the event this information is protected by the Federal Confidentiality of Alcohol and Drug AbusePatient Records regulations: The Federal rules restrict any use of the information to criminally investigate or prosecute any alcohol or drug abuse patient.[facility] Encounter Details Date Type Department Care Team (Late st Contact Info) Description 10/16/2021 Get Medical Advice Gastroenterology [facility] [address] [id number] Jace Martines MD [facility] [address] [place] [address] [facility] fax number in [place] Social History Tobacco Use Types Packs/Day Years Used Date Smoking Tobacco: Never Assessed Comments Unknown Sex and Gender Information Value Date Recorded Sex Assigned at Not on file Legal Sex Female 12:49 PM EST Gender Identity Not on file Sexual Orientation Not on file COVID-19 Exposure Response Date Recorded In the last month, have you been in contact with someone who was confirmed or suspected to have Coronavirus / COVID-19? No / Unsure 10/09/2021 1:02 PM EST documented as of this encounter Plan of Treatment Not on file documented as of this encounter Visit Diagnoses Not on filedocumented in this encounter
--- OUTSIDE RECORDS SUMMARY | 2025-03-13 20:54 | XMS_ITS | Encounter Summary ---
Author Organization [facility] Address [address] [place], [place] [id number] Care Team Providers Care Hot Plate Press Operator Name Role Phone Unavailable Primary Care Provider Unavailabl e Source Comments In the event this information is protected by the Federal Confidentiality of Alcohol and Drug AbusePatient Records regulations: The Federal rules restrict any use of the information to criminally investigate or prosecute any alcohol or drug abuse patient.[facility] Encounter Details Date Type Department Care Team (Late st Contact Info) Description 10/20/2021 Get Medical Advice Gastroenterology [facility] [address] [place] [address] Jace Martines MD [facility] [address] [place] [address] Labs Social History Tobacco Use Types Packs/Day Years [...]
--- OUTSIDE RECORDS SUMMARY | 2025-03-13 20:54 | XMS_ITS | Encounter Summary ---
Author Organization [facility] Address [address] [place], [place] [id number] Care Team Providers Care Insurance Investigator Name Role Phone Unavailable Primary Care Provider Unavailabl e Source Comments In the event this information is protected by the Federal Confidentiality of Alcohol and Drug AbusePatient Records regulations: The Federal rules restrict any use of the information to criminally investigate or prosecute any alcohol or drug abuse patient.[facility] Encounter Details Date Type Department Care Team (Late st Contact Info) Description 04/19/2024 Patient Msg Gastroenterology [facility] [address] [place] [address] Jace Martines MD [facility] [address] [place] [address] Appointment Request Social History Tobacco Use Types Packs/Day Years Used Date Smoking Tobacco: Never Assessed Area Deprivation Index Answer Date Enoz rded National Score (1-100), lower number is lower ri sk 88 04/23/2024 State Score (1-10), lower number is lower risk 8 04/23/2024 Data from: https://www.neighborhoodatlas.medicine.[facility].edu/. Last address used for calculation [address] [place] [address] 04/23/2024 Comments Unknown Sex and Gender Information Value Date Recorded Sex Assigned at Not on file Legal Sex Female 12:49 PM EST Gender Identity Not on file Sexual Orientation Not on file documented as of this encounter Plan of Treatment Not on file documented as of this encounter Visit Diagnoses Not on filedocumented in this encounter
--- OUTSIDE RECORDS SUMMARY | 2025-03-13 20:54 | XMS_ITS | Encounter Summary ---
Author Organization [facility] Address [address] [place], [place] [address] Care Team Providers Care Driver Examiner Name Role Phone Unavailable Primary Care Provider Unavailabl e Source Comments In the event this information is protected by the Federal Confidentiality of Alcohol and Drug AbusePatient Records regulations: The Federal rules restrict any use of the information to criminally investigate or prosecute any alcohol or drug abuse patient.[facility] Encounter Details Date Type Department Care Team (Late st Contact Info) Description 10/21/2021 Get Medical Advice Gastroenterology [facility] [address] [phone] Jace Martines MD [facility] [address] [place] [address] Question Social History Tobacco Use Types Packs/Day Years [...]
--- OUTSIDE RECORDS SUMMARY | 2025-03-13 20:54 | XMS_ITS | Encounter Summary ---
Author Organization [facility] Address [address] [place], [place] [phone] Care Team Providers Care Tipple Oiler Name Role Phone Unavailable Primary Care Provider Unavailabl e Source Comments In the event this information is protected by the Federal Confidentiality of Alcohol and Drug AbusePatient Records regulations: The Federal rules restrict any use of the information to criminally investigate or prosecute any alcohol or drug abuse patient.[facility] Encounter Details Date Type Department Care Team (Late st Contact Info) Description 04/23/2024 Get Medical Advice Gastroenterology [facility] [address] [place] [address] Jace Martines MD [facility] [address] [place] [address] Appointment Social History Tobacco Use Types Packs/Day Years Used Date Smoking Tobacco: Never Assessed Area Deprivation Index Answer Date Enzo rded National Score (1-100), lower number is lower ri sk 88 04/23/2024 State Score (1-10), lower number is lower risk 8 04/23/2024 Data from: https://www.neighborhoodatlas.medicine.[facility].edu/. Last address used for calculation [address] [place] [address] 04/23/2024 Comments Unknown Sex and Gender Information Value Date Recorded Sex Assigned at Not on file Legal Sex Female 12:49 PM EST Gender Identity Not on file Sexual Orientation Not on file documented as of this encounter Plan of Treatment Not on file documented as of this encounter Visit Diagnoses Not on filedocumented in this encounter
--- OUTSIDE RECORDS SUMMARY | 2025-03-13 20:54 | XMS_ITS | Encounter Summary ---
Author Organization [facility] Address [address] [place] [address] Care Team Providers Care Accident Report Clerk Name Role Phone Unavailable Primary Care Provider Unavailabl e Source Comments In the event this information is protected by the Federal Confidentiality of Alcohol and Drug AbusePatient Records regulations: The Federal rules restrict any use of the information to criminally investigate or prosecute any alcohol or drug abuse patient.[facility] Encounter Details Date Type Department Care Team (Late st Contact Info) Description 10/14/2021 Patient Msg General Surgery [facility] [address] [phone] Provider, [facility] Orders Social History Tobacco Use Types Packs/Day Years [...] PM EST documented as of this encounter Miscellaneous Notes * Telephone Encounter - Padmini Gonzalez, RN - 10/15/2021 4:49 PM EST Spoke to Nayana States she prefers to get her labs done closer to home Lives 90 minutes away Also doesn't pass her bowels everyday and would be easier to collect a pam Informed her she can get labs/stool eval done locally States she will get it done at [facility] Will send a Mychart with the fax number Padmini Gonzalez, DIMITRIS Speciality Fnps documented in this encounter Plan of Treatment Not on file documented as of this encounter Visit Diagnoses Not on filedocumented in this encounter
--- OUTSIDE RECORDS SUMMARY | 2025-03-13 20:55 | XMS_ITS | Clinical Summary ---
Author Organization [facility] Address [id number] [address] [place] [address] Care Team Providers Care Edging Machine Operator Name Role Phone HanksNuzhat berrytomer TOBAR-PATHOLOGY TRANSCRIPTIONIST Primary Care Provider Allergies Active Allergy Reactions Criticality Noted Date Comments Acetaminophen-Codeine 08/04/2023 Other Reaction(s): Unknown Hydrocodone-Acetaminophen Hives 03/09/2019 Medications fidaxomicin (DIFICID ORAL) Take 200 mg by mouth 2 (two) times a day. Active ibuprofen (MOTRIN) 600 mg tablet Take 1 tablet (600 mg total) by mouth every 6 (six) hours as needed for pain. 30 tablet 3 Active Additional Information Patient not taking.Reported on 10/24/2024 cyclobenzaprine (FLEXERIL) 10 mg tablet Take 1 tablet (10 mg total) by mouth 2 (two) times a day as needed for muscle spasms. 10 tablet 3 Active Additional Information Patient not taking.Reported on 10/24/2024 ibuprofen (MOTRIN) 600 mg tablet Take 1 tablet (600 mg total) by mouth every 6 (six) hours as needed for pain. 30 tablet 3 Active acetaminophen (TYLENOL EXTRA STRENGTH) 500 mg tablet Take 1 tablet (500 mg total) by mouth every 6 (six) hours as needed for pain. 30 tablet 3 Active lidocaine (LIDODERM) 5 % Place 1 patch on the skin daily. Remove & Discard patch within 12 hours or as directed by MD Welch patch 3 Active Additional Information Patient not taking.Reported on 10/24/2024 Bifidobacterium infantis 10.5 mg (10 million cell) tablet,chewable Chew 1 tablet and swallow in the morning. Active cholecalciferol (VITAMIN D3) 50,000 units capsule Take 1 capsule (50,000 Units total) by mouth once a week. 8 capsule Active cyanocobalamin (vitamin B-12) 1000 MCG tablet Take 1 tablet (1,000 mcg total) by mouth in the morning. 30 tablet 2 5 Active Active Problems Problem Noted Date Diagnosed Date Anxiety 08/04/2023 Bipolar depression 08/04/2023 History of Clostridium difficile colitis 023 Weight gain 08/04/2023 Excessive sweating 08/04/2023 Fibromyalgia 07/05/2022 Lumbar radiculopathy 07/05/2022 Endometritis 08/10/2021 Resolved Problems Problem Noted Date Diagnosed Date Resolved Date Clostridium difficile colitis 08/10/2021 08/04/2023 Social History Tobacco Use Types Packs/Day Years Used Date Smoking Tobacco: Some Days Vaping/E-cigarettes Smokeless Tobacco: Never Tobacco Cessation:Ready to Q uit: Not Asked; Counseling Given: Not Answered Alcohol Use Standard Drinks/Week Comments Yes 0 (1 standard drink = 0.6 oz pur e alcohol) rarely AUDIT-C Answer Date Recorded Frequency of Alcohol Consumption Never 12/25/2020 Average Number of Drinks Not on file 021 Frequency of Binge Drinking Not on file 09/2020 Overall Financial Resource Strain (CARDI) Answe r Date Recorded How hard is it for you to pa y for the very basics like food, housing, medical care, and heating? Not very hard 10/24/2024 PHQ-2 Answer Date Recorded Total Score 0 10/24/2024 PRAPARE - Transportation Answer Date Re corded In the past 12 months, has l ack of transportation kept you from medical appointments or from getting medications? No 09/27 In the past 12 months, has l ack of transportation kept you from meetings, work, or from getting things needed for daily living? No 10/24/2024 Housing Instability Answer Date Recorde d Are you worried or concerned that in the next two months you may not have stable housing that you own, rent or stay in as a part of a household? No 10/24/2024 Childcare Answer Date Recorded Childcare Unknown 03/07/2019 Employment Answer Date Recorded Employment Unknown 03/07/2019 Hunger Screening Answer Date Recorded Within the past 12 months we worried whether our food would run out before we got money to buy more. Never True 10/24/2024 Within the past 12 months th e food we bought just didn't last and we didn't have money to get more. Never True 10/24/2024 Purpose - Life Answer Date Recorded Purpose and direction in life Unknown Comments No Sex and Gender Information Value Date Recorded Sex Assigned at Not on file Legal Sex Female 11:57 AM EDT Gender Identity Not on file Sexual Orientation Not on file Last Filed Vital Signs Vital Sign Reading Time Taken Comments Blood Pressure 112/66 10/24/2024 3:01 PM EST Pulse 80 10/24/2024 3:01 PM EST Temperature 36.6 C (97.9 F) 10/24/2024 3:01 PM EST Respiratory Rate 18 07/06/2024 7:09 PM EDT Oxygen Saturation 99% 10/24/2024 3:01 PM EST Inhaled Oxygen Concentration - - Weight 77.1 kg (170 lb) 10/24/2024 3:01 PM EST Height 160 cm (5' 3 ) 10/24/2024 3:01 PM EST Body Mass Index 30.11 10/24/2024 3:01 PM EST Plan of Treatment Health Maintenance Due Date Last Done Comments Tobacco Counseling 2000 Adult BMI Follow Up Plan 2018 DTaP,Tdap and Td Vaccines (7 - Td or Tdap) 05/24/2022 05/24/2012, 01/18/2005, 10/17/2001, Additional history exists Chlamydia Screening 10/21/2023 10/21/2022 Influenza Vaccine 05/27/2025 Adult BMI Screening 10/24/2025 10/24/2024 Depression Screening 10/24/2025 10/24/2024 Tobacco Screening 10/27/2025 10/27/2024 Pap Smear 07/11/2026 07/11/2023 Medical Devices Not on file Insurance [address] [id number] [facility] MEDICAID [facility] MEDICAID Care Teams Edging Machine Operator Relationship Specialty Start Date End Date Mary Hanks APRN-ISHMAEL PCP - General Nurse Practitioner 07/06/24
--- OUTSIDE RECORDS SUMMARY | 2025-03-13 20:55 | XMS_ITS | Encounter Summary ---
Author Organization [facility] Address [address] [place] [address] Care Team Providers Care Criminal Justice Social Worker Name Role Phone Mary Hanks MD Primary Care Provider [phone] Encounter Details Date Type Department Care Team (Late st Contact Info) Description 07/06/2024 Abstract [facility] [address] [place] [address] Ed Arciniega, DO [address] [place] [address] Social History Tobacco Use Types Packs/Day Years [...] Diagnoses Not on filedocumented in this encounter Care Teams Criminal Justice Social Worker Relationship Specialty Start Date End Date Mary Hanks MD PCP - General Family Medicine 05/09/24 documented as of this encounter
--- OUTSIDE RECORDS SUMMARY | 2025-03-13 20:55 | XMS_ITS | Clinical Summary ---
Author Organization [facility] Address [address] [place] [address] Care Team Providers Care Geriatric Social Worker Name Role Phone Mary Hanks MD Primary Care Provider [phone] Allergies Active Allergy Reactions Criticality Noted Date Comments Acetaminophen-Codeine 08/04/2023 Other Reaction(s): Unknown Codeine GI intolerance,Rash Low 07/11/2023 Hydrocodone Dizziness,Fever,Hive s 01/02/2018 Hydrocodone-Acetaminoph en Hives,Rash Low 03/09/2019 Other Reaction(s): Hives Medications EQ Pain Reliever 500 MG tablet Take 500 mg by mouth every 6 (six) hours if needed 3 Active cholecalcifero l (Vitamin D-3) 1.25 MG (18921 UT) capsule Take 50,000 Units by mouth 3 Active Probiotic Product (Align) chewable tablet Chew Active ibuprofen 600 MG tablet Take 600 mg by mouth every 6 (six) hours if needed 3 Active Multiple Vitamin (multivitamin) capsule Take 1 capsule by mouth Daily Active acetaminophen (Tylenol) 500 MG tablet Take 500 mg by mouth every 6 (six) hours if needed 3 03/13/20 25 Discontinued cyclobenzaprin e (Flexeril) 10 MG tablet Take 10 mg by mouth 2 (two) times a day as needed 3 03/13/20 25 Discontinued Encounters Date Type Department Care Team Description 03/13/2025 2:00 PM EDT Office Visit [facility] [address] [place] [address] Ed Arciniega, Well woman exam with routine gynecological exam 03/13/2025 Bamboo flowsheet [facility] [address] [place] [address] Ed Arciniega DO 03/06/2025 Travel from Last 3 Months Family History Medical History Relation Name Comments Hypertension Father Relation Name Status Comments Father Alive Mother Alive Social History Tobacco Use Types Packs/Day [...] 8 oz) 03/13/2025 2:03 PM EDT Height 160 cm (5' 3 ) 07/12/2024 11:22 AM EDT Body Mass Index 28.61 07/12/2024 11:22 AM EDT Plan of Treatment Not on file Insurance #[address] [place] [address] [employer] MEDICAID [place] Care Teams Geriatric Social Worker Relationship Specialty Start Date End Date Mary Hanks MD PCP - General Family Medicine 05/09/24
--- OUTSIDE RECORDS SUMMARY | 2025-03-13 20:55 | XMS_ITS | Encounter Summary ---
Author Organization [facility] Address [address] [place] [address] Care Team Providers Care Supervisor Labor Gang Name Role Phone Mary Hanks APRN - CHARTER AND TOUR BUS DRIVER Primary Care Provider Encounter Details Date Type Department Care Team (Late st Contact Info) Description 12/31/2024 Results Follow-Up [facility] Obstetrics and Gynecology [address] [facility] [place] [address] Megan Sharma, PARKING OFFICER - CN [address] [facility] [address] [place] [address] Social History Tobacco Use Types Packs/Day Years Used Date Smoking Tobacco: Every Day Cigarettes Smokeless Tobacco: Never Alcohol Use Standard Drinks/Week Comments Yes 0 (1 standard drink = 0.6 oz pur e alcohol) social [facility] Utilities Answer Date Recorded In the past 12 months has [facility] [employer], gas, oil, or water [employer] threatened to shut off services in your [...] any time in the past 12 m [facility], were you homeless or living in a [facility] (including now)? No 11/28/2024 Food Insecurity Answer [...] on filedocumented in this encounter Care Teams Supervisor Labor Gang Relationship Specialty Start Date End Date Mary Hanks APRN - NP [address] [place] [address] PCP - General Family Medicine 11/28/24 documented as of this encounter
--- OUTSIDE RECORDS SUMMARY | 2025-03-13 20:55 | XMS_ITS | Encounter Summary ---
Author Organization [facility] Address [address] [place], [place] [address] Care Team Providers Care Land Leasing Information Clerk Name Role Phone Unavailable Primary Care Provider Unavailabl e Source Comments In the event this information is protected by the Federal Confidentiality of Alcohol and Drug AbusePatient Records regulations: The Federal rules restrict any use of the information to criminally investigate or prosecute any alcohol or drug abuse patient.[facility] Encounter Details Date Type Department Care Team (Late st Contact Info) Description 05/22/2024 Get Medical Advice Gastroenterology [facility] [address] [place] [address] Jace Martines MD [facility] [address] [place] [address] Current appointment for today Social History Tobacco Use Types Packs/Day Years Used Date Smoking Tobacco: Never Assessed Area Deprivation Index Answer Date Enzo rded National Score (1-100), lower number is lower ri sk 88 04/23/2024 State Score (1-10), lower number is lower risk 8 04/23/2024 Data from: https://www.neighborhoodatlas.medicine.[facility].edu/. Last address used for calculation [address] [place] [address] 04/23/2024 Comments Unknown Sex and Gender Information Value Date Recorded Sex Assigned at Not on file Legal Sex Female 12:49 PM EST Gender Identity Not on file Sexual Orientation Not on file documented as of this encounter Plan of Treatment Not on file documented as of this encounter Visit Diagnoses Not on filedocumented in this encounter
--- OUTSIDE RECORDS SUMMARY | 2025-03-13 20:55 | XMS_ITS | Clinical Summary ---
Author Organization [facility] Address [address] [place], [place] [address] Care Team Providers Care Screen Printing Machine Operator Helper Name Role Phone Unavailable Primary Care Provider Unavailabl e Allergies Active Allergy Reactions Criticality Noted Date Comments Hydrocodone-Acetaminophen Hives 10/12/2021 Medications multivit with iron,minerals (MULTIVITAMIN AND MINERALS ORAL) Take by mouth once daily. Active Bifidobacterium infantis (ALIGN) 10.5 mg (10 million cell) chew Take by mouth. Active Social History Tobacco Use Types Packs/Day Years Used Date Smoking Tobacco: Never Assessed Area Deprivation Index Answer Date Enzo rded National Score (1-100), lower number is lower ri sk 88 04/23/2024 State Score (1-10), lower number is lower risk 8 04/23/2024 Data from: https://www.neighborhoodatlas.medicine.[facility].edu/. Last address used for calculation [address] [place] [address] 04/23/2024 Comments Unknown Sex and Gender Information Value Date Recorded Sex Assigned at Not on file Legal Sex Female 12:49 PM EST Gender Identity Not on file Sexual Orientation Not on file Plan of Treatment Health Maintenance Due Date Last Done Comments Peds To Adult Transition Ini tial Discussion 2012 Peds To Adult Transition Berenice ual Assessment 2014 HPV Vaccine (1 - 3-dose series) 2015 Anxiety Screening 2018 Depression Screening 2018 HIV Screening 2018 Hepatitis C Screening 2018 Cervical Cancer Screening 2021 DTaP,Tdap,Td Vaccine (7 - Td or Tdap) 05/24/2022 05/24/2012, 01/18/2005, 10/17/2001, Additional history exists Covid-19 Vaccine (2023-2 5 season) 2024 Influenza Vaccine (Season Ended) 2025 Hepatitis B Vaccine Completed 2000, 2000, 2000 Insurance [employer] [place]
--- OUTSIDE RECORDS SUMMARY | 2025-03-13 20:55 | XMS_ITS | Clinical Summary ---
Author Organization [facility] Address [address] [place] [address] Care Team Providers Care Turbinated Bone Grinder Name Role Phone None, Provided MD Primary Care Provider Unavaila ble Allergies Active Allergy Reactions Criticality Noted Date Comments Hydrocodone-Acetaminophen Hives 03/09/2019 Medications multivitamin with iron-minerals 9 mg iron/15 mL liquid Take by mouth in the morning. Active cholecalciferol (Vitamin D-3) 1,250 mcg (50,000 unit) capsule Take 50,000 Units by mouth 1 (one) time per week. 08/10/2023 Active magnesium oxide (Mag-Ox) 400 mg tablet 400 mg in the morning. Active glucosamine-scarlet droitin 500-400 mg tablet Take 1 tablet by mouth in the morning, at noon, and at bedtime. Active Active Problems Problem Noted Date Diagnosed Date Lumbar radiculopathy 07/05/2022 Fibromyalgia 07/05/2022 Pain in joint, multiple sites 07/05/2022 Clostridium difficile colitis 08/10/2021 Endometritis 08/10/2021 Family History Medical History Relation Name Comments No Known Problems Father Arthritis Maternal Grandfather Zenon Welsh Heart defect Maternal Grandmother No Known Problems Mother Relation Name Status Comments Father Maternal Grandfather Zenon Welsh Maternal Grandmother Mother Social History Tobacco Use Types Packs/Day Years Used Date Smoking Tobacco: Never Smokeless Tobacco: Never Comments:Vape Alcohol Use Standard Drinks/Week Comments Never 0 (1 standard drink = 0.6 oz pur e alcohol) PHQ-2 Answer Date Recorded Patient Health Questionnaire-2 Score 0 08/22/2023 [place] Safety & Environment Answer Date Rec orded Fear of Current or Ex-Partner Not on file Emotionally Abused Not on file 11/17/2023 Physically Abused Not on file 11/17/2023 Sexually Abused Not on file 11/17/2023 Physically or Sexually Abused Not on file Comments Unknown Sex and Gender Information Value Date Recorded Sex Assigned at Not on file Legal Sex Female 12:41 AM EDT Gender Identity Not on file Sexual Orientation Not on file Last Filed Vital Signs Vital Sign Reading Time Taken Comments Blood Pressure 109/75 08/22/2023 10:02 AM EST Pulse 86 08/22/2023 10:02 AM EST Temperature - - Respiratory Rate - - Oxygen Saturation - - Inhaled Oxygen Concentration - - Weight 69.2 kg (152 lb 9.6 oz) 08/22/2023 10:02 AM EST Height 160 cm (5' 3 ) 08/22/2023 10:02 AM EST Body Mass Index 27.03 08/22/2023 10:02 AM EST Plan of Treatment Health Maintenance Due Date Last Done Comments Chlamydia Screening 2000 Depression Screening 2012 Varicella Vaccines (1 of 2 - 13+ 2-dose series) 2013 HPV Vaccines (1 - 3-dose series) 2015 Pap Smear 2021 Adult Tetanus 2022 Influenza Vaccine (Season Ended) 2025 Zoster Vaccines (1 of 2) 2050 HIB Vaccines Aged Out No longer eligi ble based on patient's age to complete this topic IPV Vaccines Aged Out No longer eligi ble based on patient's age to complete this topic Meningococcal B Vaccine Aged Out No l onger eligible based on patient's age to complete this topic Meningococcal Vaccine Aged Out No jailene hailey eligible based on patient's age to complete this topic Pneumococcal Vaccine: Pediat rics (0 to 5 Years) and At-Risk Patients (6 to 64 Years) Aged Out No longer eligible b ased on patient's age to complete this topic Rotavirus Vaccines Aged Out No longer eligible based on patient's age to complete this topic Insurance [facility] MEDICAID Care Teams Turbinated Bone Grinder Relationship Specialty Start Date End Date None, Provided, PCP - General 03/08/23
--- OUTSIDE RECORDS SUMMARY | 2025-03-13 20:55 | XMS_ITS | Encounter Summary ---
Author Organization [facility] Address [address] [place] [address] Care Team Providers Care Fabric Worker Supervisor Name Role Phone Mary Hanks MD Primary Care Provider Encounter Details Date Type Department Care Team (Late st Contact Info) Description 03/13/2025 Bamboo flowsheet [facility] [address] [place] [address] Ed Arciniega, DO [address] [place] [address] Social History Tobacco Use Types Packs/Day Years [...] on filedocumented in this encounter Care Teams Fabric Worker Supervisor Relationship Specialty Start Date End Date Mary Hanks MD PCP - General Family Medicine 05/09/24 documented as of this encounter
--- OUTSIDE RECORDS SUMMARY | 2025-03-13 20:55 | XMS_ITS | Encounter Summary ---
Author Organization [facility] Address [address] [facility] [place] [address] Care Team Providers Care Accounting Methods Analyst Name Role Phone Mary Hanks MD Primary Care Provider [phone] Encounter Details Date Type Department Care Team (Latest Contact Info) Description 03/06/2025 Travel Social History Tobacco Use Types Packs/Day Years [...] on filedocumented in this encounter Care Teams Accounting Methods Analyst Relationship Specialty Start Date End Date Mary Hanks MD PCP - General Family Medicine 05/09/24 documented as of this encounter
--- OUTSIDE RECORDS SUMMARY | 2025-03-13 20:55 | XMS_ITS | Encounter Summary ---
Author Organization [facility] Address [address] [place] [address] Care Team Providers Care Bead Forming Machine Operator Name Role Phone Mary Hanks MD Primary Care Provider [phone] Encounter Details Date Type Department Care Team (Late st Contact Info) Description 06/22/2024 Clinisync Result Encounter [facility] External Department Unsolicited Yas Arciniega, DO [address] [facility] [place] [address] Social History Tobacco Use Types Packs/Day Years [...] on file documented as of this encounter Procedures Procedure Name Priority Date/Time Associated Diagnosis Comments XR CHEST 2V 06/22/2024 9:40 AM EDT documented in this encounter Results * XR CHEST 2V (06/22/2024 9:40 AM EDT) Anatomical Region Laterality Modality Other 06/22/2024 9:40 AM EDT Narrative 06/22/2024 9:43 AM EDT The [address] [address] XRay Report Signed Patient: NAYANA SWAN MR#: [id number] : 2000 Acct:[id number] Age/Sex: 24 / F ADM Date: 06/21/24 Loc: [facility] Attending Dr: Yas Arciniega D.O. Ordering Physician: Yas Arciniega D.O. Date of Service: 06/21/24 Procedure(s): XR chest 2V Accession Number(s): [id number] cc: Yas Arciniega D.O.; Mary Hanks BEDSPREAD INSPECTOR The [place] [address] Patient Name: NAYANA SWAN MRN: [id number] date: 2000 Sex: F Assigned Patient Location: [facility] Current Patient Location: Accession/Order Number: [id number] Exam Date: 06/21/2024 10:45 Report Date: 06/22/2024 09:40 At the request of: YAS ARCINIEGA Procedure: XR chest 2V EXAMINATION: XR chest 2V HISTORY: Preop exam COMPARISON: No relevant comparison available. FINDINGS: LUNGS: No significant pulmonary parenchymal abnormalities. VASCULATURE: No increased pulmonary vasculature. PLEURA: No pneumothorax, effusion, or pleural thickening. CARDIAC: No cardiomegaly or cardiac silhouette abnormality. MEDIASTINUM: No visible mass or adenopathy. BONES: No fracture or visible bone lesion. OTHER: Negative. XR/XR chest 2V IMPRESSION: 1. Clear lungs. Normal examination. Electronically authenticated by: BAL DAVENPORT Date: 06/22/2024 09:40 Dictated By: Bal Davenport M.D. Signed By: 06/22/2443 DD/ 9 TD/TT: Spray Pilot: Procedure Note Radiology, Radiologist, MD - 06/22/2024 [place] [address] XRay Report Signed Patient: NAYANA SWAN OMR#: [id number] : 2000Acct:[id number] Age/Sex: 24 / FADM Date: 06/21/24 Loc: [facility] Attending Dr: Yas Arciniega D.O. Ordering Physician: Yas Arciniega D.O. Date of Service: 06/21/24 Procedure(s): XR chest 2V Accession Number(s): [id number] cc: Yas Arciniega D.O.; Mary Hanks NP [place] [address] Patient Name: NAYANA SWAN MRN: [id number] date: 2000 Sex: F Assigned Patient Location: [facility] Current Patient Location: Accession/Order Number: [id number] Exam Date: 06/21/2024 10:45 Report Date: 06/22/2024 09:40 At the request of: YAS ARCINIEGA Procedure: XR chest 2V EXAMINATION: XR chest 2V HISTORY: Preop exam COMPARISON: No relevant comparison available. FINDINGS: LUNGS: No significant pulmonary parenchymal abnormalities. VASCULATURE: No increased pulmonary vasculature. PLEURA: No pneumothorax, effusion, or pleural thickening. CARDIAC: No cardiomegaly or cardiac silhouette abnormality. MEDIASTINUM: No visible mass or adenopathy. BONES: No fracture or visible bone lesion. OTHER: Negative. XR/XR chest 2V IMPRESSION: 1. Clear lungs. Normal examination. Electronically authenticated by: BAL DAVENPORT Date: 06/22/2024 09:40 Dictated By: Bal Davenport M.D. Signed By:06/22/2443 DD/ TD/TT: Spray Pilot: us Yas Arciniega DO [facility] Final Result documented in this encounter Visit Diagnoses Not on filedocumented in this encounter Care Teams Bead Forming Machine Operator Relationship Specialty Start Date End Date Mary Hanks MD PCP - General Family Medicine 05/09/24 documented as of this encounter
--- OUTSIDE RECORDS SUMMARY | 2025-03-13 20:55 | XMS_ITS | Encounter Summary ---
Author Organization [facility] Address [address] [place] [address] Care Team Providers Care Injection Operator Name Role Phone Mary Hanks MD Primary Care Provider [phone] Encounter Details Date Type Department Care Team (Late st Contact Info) Description 07/06/2024 Abstract [facility] OB [address] [facility] [place] [address] Ed Arciniega, DO [address] [facility] [place] [address] Social History Tobacco Use Types Packs/Day Years [...] on filedocumented in this encounter Care Teams Injection Operator Relationship Specialty Start Date End Date Mary Hanks MD PCP - General Family Medicine 05/09/24 documented as of this encounter
--- OUTSIDE RECORDS SUMMARY | 2025-03-13 20:55 | XMS_ITS | Encounter Summary ---
Author Organization [facility] Address [address] [place] [address] Care Team Providers Care Manager Investment Banking Name Role Phone Mary Hanks MD Primary Care Provider [phone] Encounter Details Date Type Department Care Team (Late st Contact Info) Description 07/11/2023 Abstract [facility] [address] [facility] [address] [address] Ed Arciniega, DO [address] [facility] [place] [address] Social History Tobacco Use Types Packs/Day Years Used Date Smoking Tobacco: Former Cigarettes Q uit: 09/2019 Alcohol Use Standard Drinks/Week Comments Never 0 (1 standard drink = 0.6 oz pur e alcohol) caffeine: 1-2 cups per day Comments Unknown Sex and Gender Information Value Date Recorded Sex Assigned at Not on file Legal Sex Female 10:09 PM EDT Gender Identity Not on file Sexual Orientation Not on file COVID-19 Exposure Response Date Recorded In the last 10 days, have yo u been in contact with someone who was confirmed or suspected to have Coronavirus/COVID-19? No / Unsure 07/04/2023 10:22 AM EDT documented as of this encounter Plan of Treatment Not on file documented as of this encounter Visit Diagnoses Not on filedocumented in this encounter Care Teams Manager Investment Banking Relationship Specialty Start Date End Date Mary Hanks MD PCP - General Family Medicine 05/09/24 documented as of this encounter
--- OUTSIDE RECORDS SUMMARY | 2025-03-13 21:02 | XMS_ITS | CCD ---
Author Organization [facility] Care Team Providers Care Physical Therapist Clinic Director Name Role Phone Unavailable Primary Care Provider Unavailabl e SUZE, DR SORENSON Admitting Unavailable SUZE, DR SORENSON Attending Unavailable REQUEST, NONE LISTED Primary Care Unavaila ble SUZE, DR SORENSON Consulting Unavailable SUZE, DR SORENSON Admitting Unavailable SUZE, DR SORENSON Attending Unavailable REQUEST, NONE LISTED Primary Care Unavaila ble SUZE, DR SORENSON Consulting Unavailable BROWN, MARZENA Consulting Unavailable SUZE, DR SORENSON Admitting Unavailable SUZE, DR SORENSON Attending Unavailable REQUEST, NONE LISTED Primary Care Unavaila ble SUZE, DR SORENSON Admitting Unavailable SUZE, DR SORENSON Attending Unavailable REQUEST, NONE LISTED Primary Care Unavaila ble ABUGHARBYEH, AYA Attending Unavailable ABUGHARBYEH, AYA Attending Unavailable ABUGHARBYEH, AYA Attending Unavailable Unavailable Primary Care Provider Unavailgil e MARZENA MARTINES Referring Unavailable LEVER, MARZENA Moncada Referring Unavailable LEVER, MARZENA Moncada Attending Unavailable LEVER, MARZENA Moncada Attending Unavailable LEVER, MARZENA Moncada Attending Unavailable Haile Junior MD Primary Care Provider ED ARCINIEGA Attending Unavailable SUZE, ED Attending Unavailable SUZEED Attending Unavailable JUNIOR, HAILE Attending Unavailable JUNIOR, HAILE Referring Unavailable JUNIOR, HAILE Primary Care Unavailable JUNIOR, HAILE Attending Unavailable JUNIOR, HAILE Referring Unavailable JUNIOR, HAILE Primary Care Unavailable Junior MANAGER PAYMENT-[employer]P MONETIZATION, Haile Primary Care Provider JUNIOR, HAILE Primary Care Unavailable CASSIE AMOR Attending Unavailable JUNIOR, HAILE Referring Unavailable JUNIOR, HAILE Primary Care Unavailable Junior MANAGER PAYMENT - HR DIRECTOR, [facility] Primary Care Provider SUSHMA SHARMA Referring HAIEL Guzman Primary Care Unavailable SUSHMA SHARMA Referring CHRISTI GuzmanNDRA [facility] Care Unavailable Demario TORRES, [facility] Primary [facility] Provider Allergies Allergy Classification Reported Allergen(s) Allergy Type Date of Onset Reaction(s) Facility (20 sources) Acetaminophen / HYDROcodone; Translations: [HYDROCODONE-ACET AMINOPHEN] Drug Allergy 9 Hives, Rash [facility] (2 sources) Acetaminophen / HYDROcodone Drug Allergy 8 [facility] (1 source) Tylenol-Codeine Drug allergy (disorder) 0 [facility] (15 sources) Acetaminophen / Codeine; Translations: [ACETAMINOPHEN-CO DEINE] Drug Allergy 3 [facility] (10 sources) Codeine Drug Allergy 3 GI intolerance, Rash [facility] (10 sources) HYDROcodone Drug Allergy 8 Dizziness, Fever, Hives, Dizziness or Vertigo, Other (See Comments) [facility] Medications Current Medications Medication Drug Class(es) Dates Sig (Normalized) Sig (Original) acetaminophen 500 mg oral tablet (20 sources) Start: 09-04-2023 End: 03-13-2025 take 1 tablet by mouth every six hours as needed EQ Pain Reliever 500 MG tablet Take 500 mg by mouth every 6 (six) hours if needed 09/04/2023 Active bifidobacterium infantis 10.5 mg chewable tablet (18 sources) Probiotic Produc t (Align) chewable tablet Chew Active Bifidobacterium infantis (ALIGN) 10.5 mg (10 million cell) chew Take by mouth. Active Comment on above: Take by mouth. cholecalciferol 1.25 mg oral capsule (13 sources) Vitamin D Start: 11-01-19 25 take 1 capsule by mouth every week cholecalciferol (VITAMIN D3) 50,000 units capsule Take 1 capsule (50,000 Units total) by mouth once a week. 8 capsule 11/01/2024 Active Start: 08-10-2023 cholecalcifero l (Vitamin D-3) 1.25 MG (81239 UT) capsule Take 50,000 Units by mouth 08/10/2023 Active take 1 capsule by [facility] once daily vitamin D 50 MCG (1999) CAPS capsule Take 1 capsule by mouth daily Active escitalopram 5 mg oral tablet (5 sources) Serotonin Reuptake Inhibitor End: 07-12-2024 escitalopram (Lexapro) 5 MG tablet 1 (one) time each day at the same time 07/12/2024 Discontinued ferrous sulfate (5 sources) End: 07-12-2024 Ferrous Sulfate (IRON PO) Take by mouth Daily 07/12/2024 Discontinued Ferrous Sulfate (IRON PO) Take by mouth Daily Active fidaxomicin 200 mg oral tablet (5 sources) Macrolide Antibacterial take 200 mg by mouth twice daily fidaxomicin (DIFICID ORAL) Take 200 mg by mouth 2 (two) times a day. Active ibuprofen 600 mg oral tablet (18 sources) Nonsteroidal Anti-inflammatory Drug Start: 10-21-19 take 1 tablet by mouth every six hours as needed ibuprofen 600 MG tablet Take 600 mg by mouth every 6 (six) hours if needed 09/04/2023 Active lidocaine 0.05 mg/mg medicated patch (5 sources) Antiarrhythmic, Amide Local Anesthetic Start: 09-04-20 apply 1 dose transdermal route once daily, then apply 1 dose transdermal route every twelve hours lidocaine (LIDODERM) 5 % Place 1 patch on the skin daily. Remove & Discard patch within 12 hours or as directed by MD Welch patch 09/04/2023 Active Multiple Vitamin (multivitamin) capsule (5 sources) take 1 capsule by mouth once daily Multiple Vitamin (multivitamin) capsule Take 1 capsule by mouth Daily Active Multiple Vitamins-Minerals (THERAPEUTIC MULTIVITAMIN-MINERA LS) tablet (2 sources) take 1 tablet by mouth once daily Multiple Vitamins-Minerals (THERAPEUTIC MULTIVITAMIN-SENIOR MAJOR GIFTS OFFICER ALS) tablet Take 1 tablet by mouth daily Active multivit with iron,minerals (MULTIVITAMIN AND MINERALS ORAL) (5 sources) multivit with iron,minerals (MULTIVITAMIN AND MINERALS ORAL) Take by mouth once daily. Active multivit with ir on,minerals (MULTIVITAMIN AND MINERALS ORAL) Take by mouth once daily. 0 Active Comment on above: Take by mouth once d aily. vitamin b12 1 mg oral tablet (2 sources) Vitamin B12 Start: 11-01-2024 take 1 tablet by mouth in the morning cyanocobalamin (vitamin B-12) 1000 MCG tablet Take 1 tablet (1,000 mcg total) by mouth in the morning. 30 tablet 2 11/01/2024 Active Completed/Discontinued Medications Medication Drug Class(es) Dates Sig (Normalized) Sig (Original) cyclobenzaprine hydrochloride 10 mg oral tablet (13 sources) Muscle Relaxant Start: 09-04-2023 End: 03-13-2025 take 1 tablet by mouth twice daily as needed cyclobenzaprine (Flexeril) 10 MG tablet Take 10 mg by mouth 2 (two) times a day as needed 09/04/2023 03/13/2025 Discontinued Problems Active Problems Problem Classification Problem Date Documented Da te Episodic/Chronic Abdominal pain (12 sources) Pelvic and perineal pain; Translations: [Left lower quadrant pain] Onset: 04-14-2022 Episodic Anxiety disorders (5 sources) Anxiety; Translations: [Anxiety disorder, unspecified] Onset: 08-04-2023 08-04-2023 Chronic Endometriosis (2 sources) Endometriosis (clinical); Translations: [Endometriosis, unspecified] 07-12-2024 Chronic Immunizations and screening for infectious disease (1 source) Encounter for screening for human papillomavirus (HPV); Translations: [ENC SCREENING HUMAN PAPILLOMAVIRUS] Onset: 07-08-2022 Episodic Malaise and fatigue (3 sources) Chronic fatigue, unspecified; Translations: [Fatigue] Onset: 07-16-2024 07-16-2024 Chronic Menstrual disorders (4 sources) Irregular menstruation, unspecified; Translations: [Irregular periods] Onset: 04-19-2022 11-28-2024 Chronic Mood disorders (5 sources) Bipolar disorder, most recent episode depression; Translations: [Bipolar disorder, unspecified] Onset: 08-04-2023 08-04-2023 Chronic Nutritional deficiencies (3 sources) Vitamin D deficiency, unspecified; Translations: [Vitamin D deficiency] Onset: 07-16-2024 07-16-2024 Chronic Other female genital disorders (3 sources) Fallopian tube disorder; Translations: [Noninflammatory disorder of ovary, fallopian tube and broad ligament, unspecified] 07-12-2024 Episodic Other gastrointestinal disorders (3 sources) Abdominal bloating; Translations: [Abdominal distension (gaseous)] 04-23-2024 Episodic Other gastrointestinal disorders (2 sources) Abdominal distension (gaseous); Translations: [Bloating] Onset: 05-07-2024 Episodic Other infections; including parasitic (3 sources) Personal history of other infectious and parasitic diseases; Translations: [Personal history of other infectious and parasitic diseases] Onset: 04-16-2024 Episodic Other nutritional; endocrine; and metabolic disorders (2 sources) Obesity, unspecified; Translations: [Obesity, unspecified] Onset: 10-24-2024 Chronic Other nutritional; endocrine; and metabolic disorders (1 source) Body mass index 30+ - obesity; Translations: [Obesity, unspecified] 10-24-2024 Chronic Other screening for suspected conditions (not mental disorders or infectious disease) (9 sources) Encounter for screening for malignant neoplasm of cervix; Translations: [Encounter for screening for lipoid disorders] Onset: 07-07-2022 Episodic Unclassified (1 source) Wellness Onset: 10-24-2024 Unclassified (1 source) Post-op Problem Onset: 07-06-2024 Unclassified (1 source) Post-Op Issue Onset: 07-06-2024 Past or Other Problems Problem Classification Problem Date Documented Da te Episodic/Chronic Inflammatory diseases of female pelvic organs (5 sources) Endometritis; Translations: [Inflammatory disease of uterus, unspecified] Onset: 08-10-2021 06-23-2023 Episodic Intestinal infection (5 sources) Clostridium difficile colitis; Translations: [Enterocolitis due to Clostridium difficile, not specified as recurrent] Onset: 08-10-2021 Resolved: 08-04-2023 08-04-2023 Episodic Mood disorders (5 sources) Mood disorders Onset: 07-16-2024 Resolved: 10-24-2024 10-24-2024 Other aftercare (1 source) Encounter for other specified surgical aftercare; Translations: [Encounter for other specified surgical aftercare] Onset: 07-06-2024 Episodic Other connective tissue disease (5 sources) Fibromyalgia; Translations: [Fibromyalgia] Onset: 07-05-2022 06-23-2023 Episodic Other infections; including parasitic (5 sources) History of Clostridium difficile intestinal infection; Translations: [Personal history of other infectious and parasitic diseases] Onset: 08-04-2023 08-04-2023 Episodic Other nutritional; endocrine; and metabolic disorders (2 sources) Abnormal weight gain; Translations: [Abnormal weight gain] Onset: 08-04-2023 Episodic Other nutritional; endocrine; and metabolic disorders (6 sources) Weight increased; Translations: [Abnormal weight gain] Onset: 08-04-2023 10-24-2024 Episodic Other skin disorders (5 sources) Excessive sweating; Translations: [Generalized hyperhidrosis] Onset: 08-04-2023 08-04-2023 Episodic Spondylosis; intervertebral disc disorders; other back problems (9 sources) Sciatica, right side; Translations: [Sciatica, left side] Onset: 07-05-2022 Episodic Results Test Name Value Interpretation Reference Range Facility Progesteroneon 12-31-2024 Progesterone [Mass/Vol] 0.54 ng/mL [facility] Comment on above: Female: Follicular phase <0.19 ng/mL Ovulation phase 0.06-4.14 ng/mL Luteal phase 4.11-14.5 ng/mL Postmenopausal <0.13 ng/mL [facility] [employer] Progesterone 0.54 ng/mL [facility] Comment on above: Result Comment: Female: Follicular phase <0.19 ng/mL Ovulation phase 0.06-4.14 ng/mL Luteal phase 4.11-14.5 ng/mL Postmenopausal <0.13 ng/mL Performed By: #### P EUGENE #### [employer] [address] [place] [address] Industrial Engineering Analyst: Balta Yeung MD Follicle Stim. Hormon 2024 Follicle Stim. Horm 3.8 mIU/mL [facility] Comment on above: Result Comment: Refe rence Range: Male: 1.5-12.4 Ovulating Female: Follicular Phase 3.5-12.5 Ovulation Phase 4.7-21.5 Luteal Phase 1.7-7.7 Postmenopausal Female: 25.8-134.8 Performed By: #### P ROL, FSH, LH #### [employer] [address] [place] [address] [employer] Engineering Analyst: Balta Yeung MD Follicle Stimulating Hormone on 11-29-2024 Follitropin Qn 3.8 m[IU]/mL mIU/mL [facility] Comment on above: Reference Range: Male: 1.5-12.4 Ovulating Female: Follicular Phase 3.5-12.5 Ovulation Phase 4.7-21.5 Luteal Phase 1.7-7.7 Postmenopausal Female: 25.8-134.8 Luteinizing Hormoneon 2024 Interpretation and review of laboratory results Abnormal [facility] Lutropin Qn 18.3 m[IU]/mL High [facility] Comment on above: Reference Range: Male: 1.7-8.6 Ovulating Female: Follicular Phase 2.4-12.6 Ovulation Phase 14.0-95.6 Luteal Phase 1.0-11.4 Postmenopausal Female: 7.7-58.5 Luteinizing Hormone 18.3 mIU/mL High 1.7-8.6 [facility] Comment on above: Result Comment: Refe rence Range: Male: 1.7-8.6 Ovulating Female: Follicular Phase 2.4-12.6 Ovulation Phase 14.0-95.6 Luteal Phase 1.0-11.4 Postmenopausal Female: 7.7-58.5 Performed By: #### P ROL, FSH, LH #### [employer] [address] [place] [address] Industrial Engineering Analyst: Balta Yeung MD No Panel Informationon 11-29 [facility] Prolactinon 11-29-2024 Prolactin [Mass/Vol] 22.80 ng/mL 4.79 - 23.3 ng/mL [facility] Comment on above: The presence of macr oprolactin may cause interference in female patients with various endocrinological diseases or during . [facility] Prolactin 22.80 ng/mL Normal 4.79-23.3 [facility] Comment on above: Result Comment: The presence of macroprolactin may cause interference in female patients with various endocrinological diseases or during . Performed By: #### P ROL, FSH, LH #### [employer] [address] [place] [address] Industrial Engineering Analyst: Balta Yeung MD TSHon 11-28-2024 TSH Qn 0.98 m[IU]/L [facility] Thyroid Stim. Horm.on 2024 Thyroid Stim. Horm. 0.98 uIU/mL Normal 0.27-4.20 [facility] Comment on above: Performed By: #### T #### [facility] [address] [place] [address] Industrial Engineering Analyst: Marzena Aaron MD CBC AND AUTO DIFFon 10-27-19 25 ABSOLUTE BASOPHIL 0.0 X10E9/L Normal 0.0-0.2 [facility] Comment on above: Performed By: #### C BCA, CMP, 25945-0, 97150-3, TSHR, 2132-05, 67113-6 #### [facility] ([id number]) [address], [address] [place] [address] ABSOLUTE NEUTROPHIL 4.2 X10E9/L Normal 1.5-6.6 [facility] Comment on above: Performed By: #### C BCA, CMP, 79813-6, , TSHR, 2132-05, 05397-8 #### [facility] ([id number]) [address], [address] [place] [address] Basophils/100 WBC (Bld) 0.2 % Normal [facility] Comment on above: Performed By: #### C BCA, CMP, 76115-9, 20959-4, TSHR, 2132-05, 58353-8 #### [facility] ([id number]) [address] [place] [address] Eosinophils (Bld) [#/Vol] 0.0 10*3/uL Normal 0.0-0.4 [facility] Comment on above: Performed By: #### C BCA, CMP, 41908-2, 40275-3, TSHR, 2132-05, 58986-1 #### [facility] ([id number]) [address], [address] [place] [address] Eosinophils/100 WBC (Bld) 0.6 % Normal [facility] Comment on above: Performed By: #### C BCA, CMP, 26234-5, 22947-4, TSHR, 2132-05, 39806-8 #### [facility] ([id number]) [address], [address] [place] [address] Erythrocyte distribution width (RBC) [Ratio] 14.1 % Normal 11.5-15.0 [facility] Comment on above: Performed By: #### C BCA, CMP, 55010-9, , TSHR, 2132-05, 64599-5 #### [facility] ([id number]) [address], [facility] [address] [place] [address] Hematocrit (Bld) [Volume fraction] 37.8 % Normal 35-47 [facility] Comment on above: Performed By: #### C BCA, CMP, 60668-4, , TSHR, 2132-05, 80944-8 #### [facility] ([id number]) [address], [address] [place] [address] Hemoglobin (Bld) [Mass/Vol] 12.6 g/dL Normal 11.7-15.5 [facility] Comment on above: Performed By: #### C BCA, CMP, 94980-1, , TSHR, 2132-05, 26140-3 #### [facility] ([id number]) [address], [address] [place] [address] Lymphocytes (Bld) [#/Vol] 1.5 10*3/uL Normal 1.0-3.5 [facility] Comment on above: Performed By: #### C BCA, CMP, 18975-0, , TSHR, 2132-05, 15107-8 #### [facility] ([id number]) [address] [address] [address] [place] [address] Lymphocytes/100 WBC (Bld) 24.1 % Normal [facility] Comment on above: Performed By: #### C BCA, CMP, 04612-0, , TSHR, 2132-05, 58982-6 #### [facility] ([id number]) [address], [address] [place] [address] MCH (RBC) [Entitic mass] 29.3 pg Normal 27-34 [facility] Comment on above: Performed By: #### C BCA, CMP, 75417-2, , TSHR, 2132-05, 21219-3 #### [facility] ([id number]) [address], [address] [place] [address] MCHC (RBC) [Mass/Vol] 33.2 g/dL Normal 32-36 [facility] Comment on above: Performed By: #### C BCA, CMP, , , TSHR, 2132-05, 27131-4 #### [facility] ([id number]) [address], [address] [place] [address] MCV (RBC) [Entitic vol] 88 fL Normal 80-100 [facility] Comment on above: Performed By: #### C BCA, CMP, , , TSHR, 2132-05, 00667-7 #### [facility] ([id number]) [address], [address] [place] [address] Monocytes (Bld) [#/Vol] 0.4 10*3/uL Normal 0-0.9 [facility] Comment on above: Performed By: #### C BCA, CMP, 44032-0, , TSHR, 2132-05, 89988-4 #### [facility] ([id number]) [address], [address] [place] [address] Monocytes/100 WBC (Bld) 5.9 % Normal [facility] Comment on above: Performed By: #### C BCA, CMP, 12147-9, 97700-0, TSHR, 2132-05, 28562-8 #### [facility] ([id number]) [address], [facility] [address] [place] [address] Neutrophils/100 WBC (Bld) 69.2 % Normal [facility] Comment on above: Performed By: #### C BCA, CMP, 11382-1, 52414-3, TSHR, 2132-05, 99690-3 #### [facility] ([id number]) [address], [facility] [address] [place] [address] Platelet mean volume (Bld) [Entitic vol] 7.5 fL Normal 7-12 [facility] Comment on above: Performed By: #### C BCA, CMP, 31551-3, 71037-7, TSHR, 2132-05, 12960-1 #### [facility] ([id number]) [address] [address] [place] [address] Platelets (Bld) [#/Vol] 255 10*3/uL Normal 150-450 [facility] Comment on above: Performed By: #### C BCA, CMP, 83410-4, 21618-7, TSHR, 2132-05, 35601-1 #### [facility] ([id number]) [address] [address] [place] [address] RBC COUNT 4.28 X10E12/L Normal 3.80-5.20 [facility] Comment on above: Performed By: #### C BCA, CMP, 18810-0, 37275-9, TSHR, 2131-9, 04401-5 #### [facility] ([id number]) [address] [address] [place] [address] WBC (Bld) [#/Vol] 6.1 10*3/uL Normal 4.0-11.0 [facility] Comment on above: Performed By: #### C BCA, CMP, 21147-7, 34536-3, TSHR, 2132-05, 07729-7 #### [facility] ([id number]) [address], [address] [place] [address] COMPREHENSIVE METABOLIC PANE Jose G 10-27-2024 Albumin [Mass/Vol] 4.2 g/dL Normal 3.2-5.3 [facility] Comment on above: Performed By: #### C BCA, CMP, 68582-2, 24418-7, TSHR, 2132-05, 41149-4 #### [facility] ([id number]) [address], [address] [place] [address] ALP [Catalytic activity/Vol] 47 U/L Normal 39-130 [facility] Comment on above: Performed By: #### C BCA, CMP, 25066-8, 06346-6, TSHR, 2132-05, 22119-3 #### [facility] ([id number]) [address], [address] [place] [address] ALT [Catalytic activity/Vol] 14 U/L Normal 0-31 [facility] Comment on above: Performed By: #### C BCA, CMP, 53801-8, 41933-3, TSHR, 2132-05, 33418-0 #### [facility] ([id number]) [address], [address] [place] [address] Anion gap [Moles/Vol] 7 mmol/L Normal 5-15 [facility] Comment on above: Performed By: #### C BCA, CMP, 53073-3, 41932-5, TSHR, 9, 83524-5 #### [facility] ([id number]) [address], [address] [place] [address] AST [Catalytic activity/Vol] 18 U/L Normal 0-41 [facility] Comment on above: Performed By: #### C BCA, CMP, 44286-4, 43615-1, TSHR, 2132-05, 72676-2 #### [facility] ([id number]) [address], [address] [place] [address] Bilirubin [Mass/Vol] 0.5 mg/dL Normal 0.3-1.2 [facility] Comment on above: Performed By: #### C BCA, CMP, 61863-7, 11389-4, TSHR, 2132-05, 39973-3 #### [facility] ([id number]) [address], [address] [place] [address] Calcium [Mass/Vol] 9.4 mg/dL Normal 8.5-10.5 [facility] Comment on above: Performed By: #### C BCA, CMP, 78863-8, , TSHR, 2132-05, 27564-9 #### [facility] ([id number]) [address], [address] [place] [address] Chloride [Moles/Vol] 102 mmol/L Normal 98-109 [facility] Comment on above: Performed By: #### C BCA, CMP, 28258-2, , TSHR, 2132-05, 64381-9 #### [facility] ([id number]) [address], [address] [place] [address] CO2 [Moles/Vol] 28 mmol/L Normal 22-32 [facility] Comment on above: Performed By: #### C BCA, CMP, 01248-5, , TSHR, 2132-05, 24787-0 #### [facility] ([id number]) [address], [address] [place] [address] Creatinine [Mass/Vol] 0.59 mg/dL Normal 0.40-1.00 [facility] Comment on above: Result Comment: METH OD TRACEABLE TO IDMS STANDARD Performed By: #### C BCA, CMP, 80035-0, , TSHR, 2132-05, 18755-6 #### [facility] ([id number]) [address], [address] [place] [address] eGFR (CKD-EPI) NON-RACE DEPENDENT >90 Normal >59 [facility] Comment on above: Result Comment: Reported eGFR is based on the CKD-EPI 2020 equation that does not use a race coefficient. Performed By: #### C BCA, CMP, 90085-0, 41893-5, TSHR, 2132-05, 66799-2 #### [facility] ([id number]) [address], [address] [place] [address] Glucose [Mass/Vol] 80 mg/dL Normal 65-99 [facility] Comment on above: Performed By: #### C BCA, CMP, 60809-5, 49754-4, TSHR, 2132-05, 04287-4 #### [facility] ([id number]) [address], [address] [place] [address] Potassium [Moles/Vol] 4.0 mmol/L Normal 3.5-5.0 [facility] Comment on above: Performed By: #### C BCA, CMP, 64011-5, , TSHR, 2132-05, 49261-6 #### [facility] ([id number]) [address], [address] [place] [address] Protein [Mass/Vol] 6.9 g/dL Normal 6.0-8.0 [facility] Comment on above: Performed By: #### C BCA, CMP, 44240-9, 90535-8, TSHR, 2132-05, 44407-4 #### [facility] ([id number]) [address], [address] [place] [address] Sodium [Moles/Vol] 137 mmol/L Normal 134-146 [facility] Comment on above: Performed By: #### C BCA, CMP, 83457-2, 32921-7, TSHR, 2132-05, 24389-5 #### [facility] ([id number]) [address] [place] [address] Urea nitrogen [Mass/Vol] 9 mg/dL Normal 5-23 [facility] Comment on above: Performed By: #### C BCA, CMP, 30907-1, 25336-0, TSHR, 2132-05, 40209-8 #### [facility] ([id number]) [address], [address] [place] [address] Insulinon 10-27-2024 Insulin Qn 1.97 u[IU]/mL [facility] Comment on above: Ref. range is for FA STING NON-DIABETIC POPULATION. Insulin Qnon 10-27-2024 [facility] INSULIN 1.97 uIU/mL Normal 1.00-23.00 [facility] Comment on above: Result Comment: Ref. range is for FASTING NON-DIABETIC POPULATION. Performed By: #### 2 0448-7 #### [facility] ([id number]) [address], [address] [place] [address] Lipid 1996 panelon Cholesterol [Mass/Vol] 122 mg/dL Low 150-200 [facility] Comment on above: Performed By: #### C BCA, CMP, 74898-3, , TSHR, 2132-05, 82887-9 #### [facility] ([id number]) [address], [address] [place] [address] Cholesterol in HDL [Mass/Vol] 50 mg/dL Normal >39 [facility] Comment on above: Result Comment: HDL <40 mg/dL - High Risk HDL > or = 40mg/dL- Desirable HDL >60 mg/dL - Negative Risk Performed By: #### C BCA, CMP, 38632-2, 85061-8, TSHR, 2132-05, 58139-1 #### [facility] ([id number]) [address], [address] [place] [address] Cholesterol in LDL [Mass/Vol] 64 mg/dL Normal <130 [facility] Comment on above: Result Comment: LDL <100 mg/dL - Desirable LDL >160 mg/dL - High Risk Performed By: #### C BCA, CMP, 75872-0, , TSHR, 2132-05, 47773-6 #### [facility] ([id number]) [address], [address] [place] [address] Cholesterol in VLDL [Mass/Vol] 8 mg/dL Normal 0-30 [facility] Comment on above: Performed By: #### C BCA, CMP, 40658-6, , TSHR, 2132-05, 75471-5 #### [facility] ([id number]) [address], [address] [place] [address] CHOLESTEROL:HDL 2.4 Normal 1.0-5.0 [facility] Comment on above: Performed By: #### C BCA, CMP, 79232-9, , TSHR, 9, 10213-5 #### [facility] ([id number]) [address], [address] [place] [address] Triglyceride [Mass/Vol] 38 mg/dL Normal 27-150 [facility] Comment on above: Performed By: #### C BCA, CMP, 11619-4, 21031-4, TSHR, 2132-05, 49594-1 #### [facility] ([id number]) [address], [address] [place] [address] MAGNESIUMon 10-27-2024 Magnesium [Mass/Vol] 1.8 mg/dL Normal 1.8-2.6 [facility] Comment on above: Performed By: #### C BCA, CMP, 80621-9, 60338-7, TSHR, 2132-05, 90053-0 #### [facility] ([id number]) [address], [address] [place] [address] TSH WITH REFLEXon 10-27-2024 TSH 0.76 uIU/mL Normal 0.49-4.67 [facility] Comment on above: Performed By: #### C BCA, CMP, 05251-2, , TSHR, 2132-05, 41122-8 #### [facility] ([id number]) [address], [address] [place] [address] VITAMIN B12on 10-27-2024 Cobalamin (Vitamin B12) [Mass/Vol] 278 pg/mL Normal 180-914 [facility] Comment on above: Performed By: #### C BCA, CMP, 77015-8, , TSHR, 2132-05, 51541-0 #### [facility] ([id number]) [address], [address] [place] [address] Vitamin D+Metabolites [Mass/ Vol]on 10-27-2024 VITAMIN D 25 HYD TOT 16.8 ng/mL Low 30-100 [facility] Comment on above: Result Comment: Vitamin D status 25 [place] Vitamin D Deficiency <20 ng/mL Insufficiency 20-29 ng/mL Sufficiency 30-100 ng/mL Toxicity >100 ng/mL NOTE: A pediatric reference range has not been established by the accredited legal secretary of this kit. The [place] [employer] recommends a Vitamin D level of = or >20ng/mL in infants and children. Performed By: #### C BCA, CMP, 74600-1, 73114-6, TSHR, 2132-05, 92316-1 #### [facility] ([id number]) [address], [address] [place] [address] ALL CBC WITH AUTO DIFFon BASOPHILS ABSOLUTE AUTO 0.0 [facility] Basophils/100 WBC (Bld) 0.4 % 0.2 - 2.0 % [facility] Eosinophils/100 WBC (Bld) 0.8 % Low 0.9 - 7.0 % [facility] Erythrocyte distribution width (RBC) [Ratio] 13.2 % 11.0 - 15.0 % [facility] Hematocrit (Bld) [Volume fraction] 41.8 % 36.0 - 48.0 % [facility] Hemoglobin (Bld) [Mass/Vol] 13.5 g/dL 12.0 - 16.0 g/dL [facility] IMMATURE GRANULOCYTES ABS AUTO 0.02 [facility] Immature granulocytes/100 WBC (Bld) 0.3 % 0.0 - 0.5 % [facility] Interpretation and review of laboratory results Abnormal [facility] LYMPHOCYTES ABSOLUTE AUTO 1.8 [facility] Lymphocytes/100 WBC (Bld) 23.0 % 20.5 - 60.0 % [facility] MCH (RBC) [Entitic mass] 29.3 pg 26.7 - 34.0 pg [facility] MCHC (RBC) [Mass/Vol] 32.3 g/dL 29.9 - 35.2 g/dL [facility] MCV (RBC) [Entitic vol] 90.7 fL 81.0 - 99.0 fL [facility] MONOCYTES ABSOLUTE AUTO 0.5 [facility] Monocytes/100 WBC (Bld) 5.9 % 1.7 - 12.0 % [facility] NEUTROPHILS ABSOLUTE AUTO 5.4 [facility] Neutrophils/100 WBC (Bld) 69.6 % 43.0 - 75.0 % [facility] Platelet mean volume (Bld) [Entitic vol] 8.7 fL Low 9.5 - 13.5 fL [facility] TBH EO # 0.1 [facility] TBH PLT 255 [facility] RBC 4.61 [facility] TB WBC 7.7 [facility] C diff Tox gens Stl Ql ARGENIS+p robeon 05-07-2024 C. difficile toxin genes ARGENIS+probe Ql (Stl) Negative Normal Negative for C. difficile toxin by PCR [facility] Comment on above: Order Comment: Speci men Type: STOOL SPECIMEN Ordering Facility: [facility] Address: [address] [place] [address] Performed By: #### 5 4067-4, FECWBC, 11576-9, 49527-3 #### [facility] CLIA [id number] [address] [place] [address] [place] [address] [place] CBC panel Auto (Bld)on 05-07 Erythrocyte distribution width (RBC) [Ratio] 13.5 % Normal 11.5-15.0 [facility] Comment on above: Order Comment: Speci men Type: BLOOD SPECIMENOrdering Facility: [facility] Address: [address] [place] [address] Performed By: #### 5 8410-2 ####[facility]ATORYCLIA [id number] [place] [address] [place] Hematocrit (Bld) [Volume fraction] 39.3 % Normal 36.0-46.0 [facility] Comment on above: Order Comment: Speci men Type: BLOOD SPECIMENOrdering Facility: [facility] Address: [address] [place] [address] Performed By: #### 5 8410-2 ####[facility]ORYCLIA [id number] [place] [address] [place] Hemoglobin (Bld) [Mass/Vol] 12.8 g/dL Normal 11.5-15.5 [facility] Comment on above: Order Comment: Speci men Type: BLOOD SPECIMENOrdering Facility: [facility] Address: [address] [place] [address] Performed By: #### 5 8410-2 ####[facility]ORYCLIA [id number] [place] [address] [place] MCH (RBC) [Entitic mass] 29.4 pg Normal 26.0-34.0 [facility] Comment on above: Order Comment: Speci men Type: BLOOD SPECIMENOrdering Facility: [facility] Address: [address] [place] [address] Performed By: #### 5 8410-2 ####[facility] [id number] [place] [address] [place] MCHC (RBC) [Mass/Vol] 32.6 g/dL Normal 30.5-36.0 [facility] Comment on above: Order Comment: Speci men Type: BLOOD SPECIMENOrdering Facility: [facility] Address: [address] [place] [address] Performed By: #### 5 8410-2 ####[facility] [id number] [place] [address] [place] MCV (RBC) [Entitic vol] 90.3 fL Normal 80.0-100.0 [facility] Comment on above: Order Comment: Speci men Type: BLOOD SPECIMENOrdering Facility: [facility] Address: [address] [place] [address] Performed By: #### 5 8410-2 ####[facility] [id number] [place] [address] [place] Nucleated RBC (Bld) [#/Vol] 10*3/uL Normal <0.01 [facility] Comment on above: Order Comment: Speci men Type: BLOOD SPECIMENOrdering Facility: [facility] Address: [address] [place] [address] Performed By: #### 5 8410-2 ####[facility] [id number] [place] [address] [place] Platelet mean volume (Bld) [Entitic vol] 8.9 fL Low 9.0-12.7 [facility] Comment on above: Order Comment: Speci men Type: BLOOD SPECIMENOrdering Facility: [facility] Address: [address] [place] [address] Performed By: #### 5 8410-2 ####[facility] [id number] [place] [address] [place] Platelets (Bld) [#/Vol] 249 10*3/uL Normal 150-400 [facility] Comment on above: Order Comment: Speci men Type: BLOOD SPECIMENOrdering Facility: [facility] Address: [address] [place] [address] Performed By: #### 5 8410-2 ####[facility]ORATORYCLIA [id number] [place] [address] [place] RBC (Bld) [#/Vol] 4.35 10*6/uL Normal 3.90-5.20 [facility] Comment on above: Order Comment: Speci men Type: BLOOD SPECIMENOrdering Facility: [facility] Address: [address] [place] [address] Performed By: #### 5 8410-2 ####[facility]ORATORYCLIA [id number] [place] [address] [place] WBC (Bld) [#/Vol] 7.25 10*3/uL Normal 3.70-11.00 [facility] Comment on above: Order Comment: Speci men Type: BLOOD SPECIMENOrdering Facility: [facility] Address: [address] [place] [address] Performed By: #### 5 8410-2 ####[facility] LABORATORYIA [id number] [place] [address] [place] [facility] [employer] HLA-DQ GENOTYPE on 05-07-2024 ORTIZ INTERPRETATION The HLA-DQ genotype of the patient is supportive of an increased risk of celiac disease. Normal [facility] Comment on above: Order Comment: Speci men Type: BLOOD SPECIMENOrdering Facility: [facility] Address: [address] [place] [address] Performed By: #### Ruth ADRIAN ####[facility] [id number] [address] [place] CELIAC CATEGORY Category 3 Normal [facility] Comment on above: Order Comment: Speci [facility] Type: BLOOD SPECIMENOrdering Facility: [facility] Address: [address] [place] [address] Result Comment: CATEGORY DQ HAPLOTYPE RELATIVE RISK [...] HLA allele is reported. References: 1. Hoa Bhagat, Andrew Leigh, Conner Berry, et al. Cost-effective HLA typing with tagging SNPs predicts celiac disease risk haplotypes in the [place], [place] and [place] populations. Immunogenetics. 2009 Dec;61(4):247-56. 2. Keya WOOD. Celiac disease: dissecting a complex inflammatory disorder. Varsha Rev Immunol. 2002 Sep;2(9):766-55. 3. Randolph E, Parvez HS, Cari CA, et al. Risk of pediatric celiac disease according to HLA haplotype and country. N Engl J Med. 2014 ;371(1):42-9. HLA typing performed by PCR-RSSOP and/or NGS. This test was developed and its performance characteristics determined by [employer]. The test has not been cleared or approved by the [place] FDA. However, FDA approval was not necessary since this lab is certified under CLIA for high complexity testing. Test performed by: [facility], [address] [place] [address]., [facility] [place] [address]. CLIA [id number]. Performed By: #### C KAYLAH ####[facility]IESCLIA [id number] [address] [place] CELIAC RISK HAPLOTYPE Positive [facility] Comment on above: Order Comment: Speci men Type: BLOOD SPECIMENOrdering Facility: [facility] Address: [address] [place] [address] Performed By: #### C KAYLAH ####[facility]IESCLIA [id number] [address] [place] HLA-DQA1 GENOTYPE HLA-DQA1*: 05, 01 [facility] Comment on above: Order Comment: Speci [facility] Type: BLOOD SPECIMENOrdering Facility: [facility] Address: [address] [place] [address] Performed By: #### C KAYLAH ####[facility]ORATORIESCLIA [id number] [address] [place] HLA-DQB1 GENOTYPE HLA-DQB1*: 02:01, 06 [facility] Comment on above: Order Comment: Cristinei [facility] Type: BLOOD SPECIMENOrdering Facility: [facility] Address: [address] [place] [address] Performed By: #### C KAYLAH ####[facility] LABORATORIESCLIA [id number] [id number] [address] [place] CRP SerPl-mCncon 05-07-2024 CRP [Mass/Vol] mg/L Normal <0.9 [facility] Comment on above: Order Comment: Speci men Type: BLOOD SPECIMEN Ordering Facility: [facility] Address: [address] [place] [address] Performed By: #### 2 4323-8, 1988-01 #### [facility] CLIA [id number] [place] [address] [place] Calprotectin (Stl) [Mass/Mas s]on 05-07-2024 CALPROTECTIN, FECAL INTERP Normal Normal Normal [facility] Comment on above: Order Comment: Speci men Type: STOOL SPECIMEN Ordering Facility: [facility] Address: [address] [place] [address] Result Comment: Inte rpretation: <50.0 ug/g: Normal 50.0 ug/g - 120.0 ug/g: Borderline elevated. Re-evaluation in 4-6 weeks is recommended if clinically indicated. >120.0 ug/g: Elevated Performed By: #### 5 4067-4, FECWBC, 19977-8, 37965-0 #### [facility] CLIA [id number] [address] [place] [address] [place] CALPROTECTIN, FECAL QUANTITATIVE 32.8 ug/g Normal <50 [facility] Comment on above: Order Comment: Speci men Type: STOOL SPECIMEN Ordering Facility: [facility] Address: [address] [place] [address] Performed By: #### 5 4067-4, FECWBC, 78372-4, 61688-8 #### [facility] CLIA [id number] [address] [place] [address] [place] Comprehensive metabolic 2000 panelon 05-07-2024 Albumin [Mass/Vol] 4.4 g/dL Normal 3.9-4.9 [facility] Comment on above: Order Comment: Speci men Type: BLOOD SPECIMEN Ordering Facility: [facility] Address: [address] [place] [address], [place] [address] Performed By: #### 2 4323-04, 1988-01 #### [facility] CLIA [id number] [address] [place] [address] [place] ALP [Catalytic activity/Vol] 60 U/L Normal 34-123 [facility] Comment on above: Order Comment: Speci men Type: BLOOD SPECIMEN Ordering Facility: [facility] Address: [address] [place] [id number] Performed By: #### 2 4323-04, 1988-01 #### [facility] CLIA [id number] [address] [place] [address] [place] ALT [Catalytic activity/Vol] 11 U/L Normal 7-38 [facility] Comment on above: Order Comment: Speci men Type: BLOOD SPECIMEN Ordering Facility: [facility] Address: [address] [place] [address] Performed By: #### 2 4323-04, 1988-01 #### [facility] CLIA [id number] [address] [place] [address] [place] Anion gap [Moles/Vol] 12 mmol/L Normal 8-15 [facility] Comment on above: Order Comment: Speci men Type: BLOOD SPECIMEN Ordering Facility: [facility] Address: [address] [place], [place] [address] Performed By: #### 2 4323-04, 1988-01 #### [facility] CLIA [id number] [address] [place] [address] [place] AST [Catalytic activity/Vol] 16 U/L Normal 13-35 [facility] Comment on above: Order Comment: Speci men Type: BLOOD SPECIMEN Ordering Facility: [facility] Address: [address] [place], [place] [address] Performed By: #### 2 4323-04, 1988-01 #### [facility] CLIA [id number] [address] [place] [address] [place] Bilirubin [Mass/Vol] 0.4 mg/dL Normal 0.2-1.3 [facility] Comment on above: Order Comment: Speci men Type: BLOOD SPECIMEN Ordering Facility: [facility] Address: [address] [place] [address] Performed By: #### 2 4323-04, 1988-01 #### [facility] CLIA [id number] [address] [place] [address] [place] Calcium [Mass/Vol] 9.1 mg/dL Normal 8.5-10.2 [facility] Comment on above: Order Comment: Speci men Type: BLOOD SPECIMEN Ordering Facility: [facility] Address: [address] [place], [place] [address] Performed By: #### 2 4323-04, 1988-01 #### [facility] CLIA [id number] [address] [place] [address] [place] Chloride [Moles/Vol] 101 mmol/L Normal 98-107 [facility] Comment on above: Order Comment: Speci men Type: BLOOD SPECIMEN Ordering Facility: [facility] Address: [address] [place], [place] [address] Performed By: #### 2 4323-04, 1988-01 #### [facility] CLIA [id number] [address] [place] [address] [place] CO2 [Moles/Vol] 26 mmol/L Normal 22-30 [facility] Comment on above: Order Comment: Speci men Type: BLOOD SPECIMEN Ordering Facility: [facility] Address: [address] [place] [address] Performed By: #### 2 4323-04, 1988-01 #### [facility] CLIA [id number] [address] [place] [address] [place] Creatinine [Mass/Vol] 0.57 mg/dL Low 0.58-0.96 [facility] Comment on above: Order Comment: Speci men Type: BLOOD SPECIMEN Ordering Facility: [facility] Address: [address] [place] [address] Performed By: #### 2 4323-04, 1988-01 #### [facility] CLIA [id number] [facility] [place] [address] [place] Creatinine and Glomerular filtration rate.predicted panel (S/P/Bld) 130 mL/min/1.73m??? Normal >=60 [facility] Comment on above: Order Comment: Georgiana serrano Type: BLOOD SPECIMEN Ordering Facility: [facility] Address: [address] [place] [address] Result Comment: Julissa mated Glomerular Filtration Rate [...] reflect actual GFR. Performed By: #### 2 4323-8, 1988-01 #### [facility] CLIA [id number] [address] [facility] [place] [address] [place] Glucose [Mass/Vol] 82 mg/dL Normal 74-99 [facility] Comment on above: Order Comment: Georgiana serrano Type: BLOOD SPECIMEN Ordering Facility: [facility] Address: [address] [place] [address] Result Comment: The [place] Diabetes Association (ADA) provides guidance for cutoff [...] Standards of Medical Care in Diabetes 2016, [place] Diabetes Association. Diabetes Care. 2016.39(Suppl 1). Performed By: #### 2 4323-8, 1988-01 #### [facility] CLIA [id number] [address] [place] [address] [place] Potassium [Moles/Vol] 4.4 mmol/L Normal 3.7-5.1 [facility] Comment on above: Order Comment: Speci men Type: BLOOD SPECIMEN Ordering Facility: [facility] Address: [address] [place], [place] [address] Performed By: #### 2 43238, 1988-01 #### [facility] CLIA [id number] [address] [place] [address] [place] Protein [Mass/Vol] 7.5 g/dL Normal 6.3-8.0 [facility] Comment on above: Order Comment: Speci men Type: BLOOD SPECIMEN Order[facility] Facility: [facility] Address: [address] [place] [address] Performed By: #### 2 4328, 1988-01 #### [facility] IA [id number] [address] [place] [address] [place] Sodium [Moles/Vol] 139 mmol/L Normal 136-144 [facility] Comment on above: Order Comment: Speci men Type: BLOOD SPECIMEN Ordering Facility: [facility] Address: [address] [place], [place] [address] Performed By: #### 2 4328, 1988-01 #### [facility] IA [id number] [address] [place] [address] [place] Urea nitrogen [Mass/Vol] 11 mg/dL Normal 7-21 [facility] Comment on above: Order Comment: Speci men Type: BLOOD SPECIMEN Ordering Facility: [facility] Address: [address] [place], [place] [address] Performed By: #### 2 43238, 1988-01 #### [facility] IA [id number] [address] [place] [address] [place] ESR Westergren method (Bld) [Velocity]on 05-07-2024 ESR (Bld) [Velocity] 6 mm/h Normal 0-20 [facility] Comment on above: Order Comment: Speci men Type: BLOOD SPECIMEN Ordering Facility: [facility] Address: [address] [place] [address] Performed By: #### 4 537-7 #### [facility] CLIA [id number] [address] [place] [address] [place] FECAL LACTOFERRIN/LEUKOCYTES on 05-07-2024 Lactoferrin IA Ql (Stl) Negative for lactoferrin, which may indicate the absence of fecal white blood cells Normal Negative [facility] Comment on above: Order Comment: Speci men Type: STOOL SPECIMEN Order[facility] Facility: [facility] Address: [address] [place] [address] Performed By: #### 5 4067-4, FECWBC, 01872-7, 73579-7 #### [facility] CLIA [id number] [address] [place] [address] [place] G lamblia+Cryptosp Ag Stl Ql IAon 05-07-2024 G. lamblia+Cryptosporidi um sp Ag IA Ql (Stl) CRYPTOSPORIDIUM ANTIGEN BY EIA: Negative for Cryptosporidium by EIA. GIARDIA ANTIGEN BY EIA: Negative for Giardia lamblia by EIA. Normal [facility] Comment on above: Performed By: #### 5 4067-4, FECWBC, 18308-1, 62497-8 #### [facility] CLIA [id number] [address] [place] [address] [place] GLIADIN (DEAMIDATED) AB, IGA on 05-07-2024 GLIAD DEAMIDATED IGA QUAL Negative Normal Negative, Test not Indicated [facility] Comment on above: Order Comment: Speci men Type: BLOOD SPECIMEN Ordering Facility: [facility] Address: [address] [place] [address] Result Comment: This is used as an aid in diagnosis of celiac disease. Clinical correlation is required. The following results were obtained with an Xenapto QUANTA Lite Gliadin IgA DK Gliadin. Gliadin IgA values obtained with different manufacturers' assay methods may not be used interchangeably. The magnitude of the reported IgA levels cannot be correlated to an endpoint titer. Performed By: #### 3 1017-7, PAZ FLORES #### [facility] CLIA [id number] [address] [place] [address] [place] Gliadin peptide IgA Qn (S) 5 Units Normal <20 [facility] [facility] Comment on above: Order Comment: Speci men Type: BLOOD SPECIMEN Ordering Facility: [facility] Address: [address] [place] [address] Performed By: #### 3 1017-7SANDRA GLIIGG #### [facility] CLIA [id number] [address] [place] [address] [place] GLIADIN (DEAMIDATED) AB, IGG on 05-07-2024 GLIAD DEAMIDATED IGG QUAL Negative Normal Negative, Test not Indicated [facility] Comment on above: Order Comment: Speci men Type: BLOOD SPECIMEN Ordering Facility: [facility] Address: [address] [place] [address] Result Comment: This test is used as an aid in diagnosis of celiac disease in IgA-deficient individuals only. Clinical correlation is required. The following results were obtained with an Xenapto QUANTA Lite Gliadin IgG DK Gliadin. Gliadin IgG values obtained with different manufacturers' assay methods may not be used interchangeably. The magnitude of the reported IgG levels cannot be correlated to an endpoint titer. Performed By: #### 3 [id number] GLIIGG #### [facility] CLIA [id number] [address] [place] [address] [place] Gliadin peptide IgG Qn (S) 1 Units Normal <20 [facility] Comment on above: Order Comment: Speci men Type: BLOOD SPECIMEN Ordering Facility: [facility] Address: [address] [place] [address] Performed By: #### 3 [id number] GLIIGG #### [facility] CLIA [id number] [address] [place] [address] [place] Gastrointestinal pathogens i dentified ARGENIS+probe Nom (Stl)on 05-07-2024 Campylobacter sp DNA ARGENIS+probe Nom (Unsp spec) Not detected Normal Not Detected [facility] Comment on above: Order Comment: Speci men Type: STOOL SPECIMEN Ordering Facility: [facility] Address: [address] [place] [address] Performed By: #### 7 9390-1 #### [facility] CLIA [id number] [address] [place] [address] [place] Salmonella sp DNA ARGENIS+probe Ql (Unsp spec) Not detected Normal Not Detected [facility] Comment on above: Order Comment: Speci men Type: STOOL SPECIMEN Ordering Facility: [facility] Address: [address] [place] [address] Performed By: #### 7 9390-1 #### [facility] CLIA [id number] [address] [place] [address] [place] Shiga toxin stx gene ARGENIS+probe Nom (Unsp spec) Not detected Normal Not Detected [facility] Comment on above: Order Comment: Speci men Type: STOOL SPECIMEN Ordering Facility: [facility] Address: [address] [place] [address] Performed By: #### 7 9390-1 #### [facility] CLIA [id number] [address] [place] [address] [place] Shigella sp DNA ARGENIS+probe Ql (Unsp spec) Not detected Normal Not Detected [facility] Comment on above: Order Comment: Speci men Type: STOOL SPECIMEN Ordering Facility: [facility] Address: [address] [place] [address] Performed By: #### 7 9390-1 #### [facility] CLIA [id number] [address] [place] [address] [place] HCG Preg Ur Qlon 05-07-2024 HCG ( test) Ql (U) Negative Normal Negative [facility] Comment on above: Order Comment: Speci men Type: URINE SPECIMEN Ordering Facility: [facility] Address: [address] [place] [address] Result Comment: This test is intended to aid in the early detection of . Very dilute urine samples, as indicated by a low specific gravity, may not contain senior patient account representative levels of hCG. This test detects [...] . Performed By: #### 2 106-3 #### [facility] CLIA [id number] [facility] [place] [address] [place] IgA SerPl-mCncon 05-07-2024 IgA [Mass/Vol] 203 mg/dL Normal 70-400 [place] [facility] Comment on above: Order Comment: Speci men Type: BLOOD SPECIMEN Ordering Facility: [facility] Address: [address] [place] [address] Performed By: #### 2 458-8 #### [facility] CLIA [id number] [address] [place] [address] [place] XR ABD 2V [...] the upright view. * No abnormal calcifications. Software Development Manager: JONNY Transcribe Date/Time: May 10 2024 4:29P Dictated by : ZOHAIB TIDWELL MD This examination was interpreted and the report reviewed and electronically signed by: ZOHAIB TIDWELL MD on May 10 2024 4:30PM EST [id number] N Normal [facility] tTG IgA Qn (S)on 05-07-2024 TRANSGLUTAMINASE IGA ABS INTERPRETATION Negative Normal Negative [facility] Comment on above: Order Comment: Specevelia serrano Type: BLOOD SPECIMEN Ordering Facility: [facility] Address: [address] [place] [address] Result Comment: The following results were obtained with VestorA Lite R h-tTG IgA DK.???R h-tTG IgA values obtained with different manufacturers' assay methods may not be used interchangeably. The magnitude of the reported IgA levels cannot be correlated to an endpoint???concentration. This is used as an aid in diagnosis of celiac disease. Clinical correlation is required. Performed By: #### 3 1017-7, PAZ FLORES #### [facility] CLIA [id number] [address] [place], [place] [address] [place] [address] [place] tTG IgA Ser-aCncon tTG IgA Qn (S) <2 Normal <4 [facility] Comment on above: Order Comment: Speci maggie Type: BLOOD SPECIMEN Ordering Facility: [facility] Address: [address] [place] [address] Performed By: #### 3 1017-7, PAZ FLORES #### [facility] CLIA [id number] [address] [place], [place] [address] [place] [address] [place] Follow-Upon 08-22-2023 Follow-Up [id number] Nayana Swan 2000 F Date Provider Department Center 08/22/2023 Marifer4-MILVIA DENNIS [facility] R[facility]UM St[facility] Family History Problem Relation Age of Onset No Known Problems Mother No Known Problems Father Heart defect Maternal Grandmother Arthritis Maternal Grandfather Family Status - Relation Status Age at Mother Father Maternal Grandmother Maternal Grandfather Level of Service:48176 [place] OFFICE/OUTPATIENT ESTABLISHED LOW MDM 20-29 MIN Reason for Visit and Comments: Follow-up [610648] Normal [facility] Cytology Cervical or vaginal smear or scraping studyon 07-11-2023 [facility] Follow-Upon 03-09-2023 Follow-Up [id number] Nayana Swan [age] F Date Provider Department Center 03/09/2023 355Debby-MILVIA DENNIS [facility] St[facility] Family History Problem Relation Age of Onset No Known Problems Mother No Known Problems Father Heart defect Maternal Grandmother Family Status - Relation Status Age at Mother Father Maternal Grandmother Level of Service:69827 [place] OFFICE/OUTPATIENT ESTABLISHED LOW MDM 20-29 MIN (GE) Reason for Visit and Comments: Follow-up [000737] - follow up MRI hip and back pain Normal [facility] Telemedicineon 10-05-2022 Telemedicine [id number] Nayana Swan [age] Provider Department Center 10/05/2022 3554-NIRANJANSTEVAN HOLMANDoris [facility] RHEUM Stacey Heal Family History Problem Relation Age of Onset No Known Problems Mother No Known Problems Father Heart defect Maternal Grandmother Family Status - Relation Status Age at Mother Father Maternal Grandmother Level of Service:PBTLH [place] UTP TELEMEDICINE Reason for Visit and Comments: Follow-up [[id number]] Normal [facility] PAP ACOG PANEL 2: 21 to 29on 07-14-2022 . . Normal [facility] Comment on above: Performed By: #### 4 [id number] #### [facility] [address] [address] [address] Ilene Chapa Age Gdln ACOG Testing 21- Normal [facility] Comment on above: Performed By: #### 4 [id number] #### [facility] [address] [address] [address] Ilene Chapa DIAGNOSIS: Comment [facility] Comment on above: Result Comment: NEGA TIVE FOR INTRAEPITHELIAL LESION OR MALIGNANCY. Performed By: #### 4 [id number] #### [facility] [address] [address] [address] Ilene Chapa Methodology: Comment [facility] Comment on above: Result Comment: This liquid based ThinPrep(R) pap test was screened with the use of an image guided system. Performed By: #### 4 [id number] #### [facility] [address] [place] [address] Dr. Ilene Chapa Note: Comment Normal [facility] Comment on above: Result Comment: The Pap smear is a screening test designed to aid in the detection of premalignant and malignant conditions of the uterine cervix. It is not a diagnostic procedure and should not be used as the sole means of detecting cervical cancer. Both false-positive and false-negative reports do occur. . Performed By: #### 4 [id number] #### [facility] [address] [place] [address] Dr. Ilene Chapa Performed by: Comment Normal [facility] Comment on above: Result Comment: Mounika Hernandez, Hall Tender (ASCP) Performed By: #### 4 [id number] #### [facility] [address] [place] [address] Dr. Ilene Chapa Reflex Criteria: Comment [facility] Comment on above: Result Comment: The HPV DNA reflex criteria were not met with this specimen result therefore, no HPV testing was performed. . Performed By: #### 4 [id number] #### [facility] [address] [place] [address] Dr. Ilene Chapa Specimen adequacy: Comment Normal [facility] Comment on above: Result Comment: Sati sfactory for evaluation. Endocervical and/or squamous metaplastic cells (endocervical component) are present. Performed By: #### 4 [id number] #### [facility] [address] [place] [address] Dr. Ilene Chapa HCG-BETA SUBUNIT QUANTon hCG,Beta Subunit,Qnt,Serum <1 Normal [facility] Comment on above: Result Comment: Fema le (Non-) 0 - 5 (Postmenopausal) 0 - 8 . Female () Weeks of Gestation 3 6 - 71 4 10 - 750 5 322 - 7619 6 080 - 18155 7 [phone] -[phone] 8 04293 -[phone] 9 49522 -374118 10 58927 -208951 12 04600 -169876 14 60811 - 36053 15 63149 - 37253 16 2240 - 79915 17 8175 - 30380 18 0202 - 67590 Sendy ECLIA methodology Performed By: #### H CGSUB #### [facility] [address] [place] [address] Dr. Ilene Chapa US PELVIS AND TRANSVAGon [...] MARZENA MICHELE Date: 2022-04-15 08:16 Normal [facility] CBC AUTO DIFFon 04-14-2022 BASO # 0.0 103/ul Normal 0.0-0.1 [facility] Comment on above: Performed By: #### C BC #### [facility] [address] [place] [address] Dr. Ilene Chapa Basophils/100 WBC (Bld) 0.5 % Normal 0.2-2.0 [facility] Comment on above: Performed By: #### C BC #### [facility] [address] [address] [address] Ilene Chapa EO # 0.1 103/ul Normal 0.0-0.7 [facility] Comment on above: Performed By: #### C BC #### [facility] [address] [place] [address] Dr. Ilene Chapa Eosinophils/100 WBC (Bld) 1.3 % Normal 0.9-7.0 [facility] Comment on above: Performed By: #### C BC #### [facility] [address] [place] [address] Dr. Ilene Chapa Erythrocyte distribution width (RBC) [Ratio] 13.1 % Normal 11.0-15.0 [facility] Comment on above: Performed By: #### C BC #### [facility] [address] [place] [address] Dr. Ilene Chapa Hematocrit (Bld) [Volume fraction] 36.9 % Normal 36.0-48.0 [facility] Comment on above: Performed By: #### C BC #### [facility] [address] [place] [address] Dr. Ilene Chapa Hemoglobin (Bld) [Mass/Vol] 12.0 g/dL Normal 12.0-16.0 [facility] Comment on above: Performed By: #### C BC #### [facility] [address] [place] [address] Dr. Ilene Chapa IG # 0.01 10e3/ul Normal 0.00-0.03 [facility] Comment on above: Performed By: #### C BC #### [facility] [address] [place] [address] Dr. Ilene Chapa IG % 0.2 % Normal 0.0-0.5 [facility] Comment on above: Performed By: #### C BC #### [facility] [address] [place] [address] Dr. Ilene Chapa LYMPH # 2.1 103/ul Normal 1.2-3.8 [facility] Comment on above: Performed By: #### C BC #### [facility] [address] [place] [address] Dr. Ilene Chapa Lymphocytes/100 WBC (Bld) 33.7 % Normal 20.5-60.0 [facility] Comment on above: Performed By: #### C BC #### [facility] [address] [place] [address] Dr. Ilene Chapa MANUAL DIFF REQ NO Normal [facility] Comment on above: Performed By: #### C BC #### [facility] [address] [place] [address] Dr. Ilene Chapa MCH (RBC) [Entitic mass] 29.9 pg Normal 26.7-34.0 [facility] Comment on above: Performed By: #### C BC #### [facility] [address] [place] [address] Dr. Ilene Chapa MCHC (RBC) [Mass/Vol] 32.5 g/dL Normal 29.9-35.2 [facility] Comment on above: Performed By: #### C BC #### [facility] [address] [place] [address] Dr. Ilene Chapa MCV (RBC) [Entitic vol] 92.0 fL Normal 81.0-99.0 [facility] Comment on above: Performed By: #### C BC #### [facility] [address] [place] [address] Dr. Ilene Chapa MONO # 0.4 103/ul Normal 0.3-0.8 [facility] Comment on above: Performed By: #### C BC #### [facility] [address] [place] [address] Dr. Ilene Chapa Monocytes/100 WBC (Bld) 5.9 % Normal 1.7-12.0 [facility] Comment on above: Performed By: #### C BC #### [facility] [address] [place] [address] Dr. Ilene Chapa NEUT # 3.6 103/ul Normal 1.4-6.5 [facility] Comment on above: Performed By: #### C BC #### [facility] [address] [place] [address] Dr. Ilene Chapa Neutrophils/100 WBC (Bld) 58.4 % Normal 43.0-75.0 [facility] Comment on above: Performed By: #### C BC #### [facility] [address] [place] [address] Dr. Ilene Chapa Platelet mean volume (Bld) [Entitic vol] 9.0 fL Critically low 9.5-13.5 [facility] Comment on above: Performed By: #### C BC #### [facility] [address] [place] [address] Dr. Ilene Chapa PLT 258 103/ul Normal 150-450 [facility] Comment on above: Performed By: #### C BC #### [facility] [address] [place] [address] Dr. Ilene Chapa RBC 4.01 106/ul Critically low 4.20-5.40 [facility] Comment on above: Performed By: #### C BC #### [facility] [address] [place] [address] Dr. Ilene Chapa WBC 6.1 103/ul Normal 4.0-11.0 [facility] Comment on above: Performed By: #### C BC #### [facility] [address] [place] [address] Dr. Ilene Chapa PROTIMEon 04-14-2022 INR Coag (PPP) [Relative time] 1.02 {INR} Normal [facility] Comment on above: Performed By: #### P TT, PT #### [facility] [address] [place] [address] Dr. Ilene Chapa INR GUIDELINES SEE BELOW Normal [facility] Comment on above: Result Comment: LENIN RED INR: 2.0 - 3.0 CONDITIONS NOT LISTED BELOW 2.5 - 3.5 FOR PROSTHETIC HEART VALVE REPLACEMENT 2.5 - 3.5 RECURRENT THROMBOSIS Performed By: #### P TT, PT #### [facility] [address] [place] [address] Dr. Ilene Chapa PT Coag (PPP) [Time] 11.0 s Normal 9.0-11.6 [facility] Comment on above: Performed By: #### P TT, PT #### [facility] [address] [place] [address] Dr. Ilene Chapa PTTon 04-14-2022 aPTT Coag (Bld) [Time] 28.8 s Normal 22.3-36.2 [facility] Comment on above: Performed By: #### P TT, PT #### [facility] [address] [place] [address] Dr. Ilene Chapa TSHon 04-14-2022 TSH 0.676 uIU/mL Normal 0.358-3.740 [facility] Comment on above: Performed By: #### T #### [facility] [address] [address] [address] Ilene Chapa Gastroenterology Office/Clin ic Noteon 06-04-2021 Gastroenterology Office/Clinic Note Chief Complaint self ref- C. diff HPI Staff This is a 21 year old female who presents today for a self referral for c-diff. History of Present Illness The patient or their guardian verbally consented to allow Tj Duane Ventura to record this visit. Nayana Swan is a 21-year-old white female who presents [...] and referred to Gastroenterology, Dr. Gonzales in [place], [place]. She states Dr. Gonzales treated her [...] after patient consented to recording for virtual documentation clerk and provider reviewed before signing. LIZZ: Kayla Oconnor. Follow-up No qualifying data available Problem List/Past Medical History Ongoing No qualifying data Historical No qualifying data Medications Dificid 200 mg oral tablet, 200 mg= 1 tab(s), Oral, BID Allergies Vicodin (Hives) Social History Tobacco Vaping, 06/03/2021 [facility] Comment on above: Result Comment: Elec tronically Signed By: Kayla Oconnor\.br\Date and Time Signed: 06/03/21 16:33 EDT\.br\Electronically Co-Signed By: Patricia SELLERS MD\.br\Date and Time Co-Signed: 06/04/21 09:00 EDT Ambulatory Clinical Summaryo n 06-03-2021 Ambulatory Clinical Summary {[id number]}CD:[id number] [facility] Vital Signs Date Time Vital Sign Value Performing Clinician Facility 03-13-2025 14:03-0400 Body mass index (BMI) [Ratio] 28.61 kg/m2 [facility] Work Phone: [facility] 03-13-2025 14:03-0400 Body weight 73.26 kg [employer] Work Phone: [facility] 03-13-2025 14:03-0400 Diastolic blood pressure 80 mm[Hg] [facility] [employer] Work Phone: [facility] 03-13-2025 14:03-0400 Systolic blood pressure 112 mm[Hg] [employer] Work Phone: [facility] 10-24-2024 15:01-0500 Body height 160 cm [employer] Work Phone: [facility] 10-24-2024 15:01-0500 Body mass index (BMI) [Ratio] 30.11 kg/m2 [employer]omer [employer] Work Phone: [facility] 10-24-2024 15:01-0500 Body temperature 97.9 [degF] Haile Junior [employer]NAGER [employer] Work Phone: [facility] 10-24-2024 15:01-0500 Body weight 77.11 kg Haile Junior MANAGER [employer] Work Phone: [facility] 10-24-2024 15:01-0500 Diastolic blood pressure 66 mm[Hg] Haile Junior MANAGER [employer] Work Phone: [facility] 10-24-2024 15:01-0500 Heart rate 80 /min Haile Junior MANAGER [employer] Work Phone: [facility] 10-24-2024 15:01-0500 SaO2% (BldA) [Mass fraction] 99 % Haile Junior MANAGER [employer] Work Phone: [facility] 10-24-2024 15:01-0500 Systolic blood pressure 112 mm[Hg] Haile Junior MA[employer]GER [employer] Work Phone: [facility] 07-16-2024 14:59-0400 Body mass index (BMI) [Ratio] 29.9 kg/m2 Haile Junior MANAGER [employer] Work Phone: [facility] 07-16-2024 14:59-0400 Body temperature 98.01 [degF] Haile Junior MANAGER [employer] Work Phone: [facility] 07-16-2024 14:59-0400 Body weight 76.57 kg Haile Junior MANAGER [employer] Work Phone: [facility] 07-16-2024 14:59-0400 Diastolic blood pressure 60 mm[Hg] Haile Junior MANAGER [employer] Work Phone: [facility] 07-16-2024 14:59-0400 Heart rate 80 /min Haile Junior MANAGER [employer] Work Phone: [facility] 07-16-2024 14:59-0400 SaO2% (BldA) [Mass fraction] 97 % Haile Junior MANAGER [employer] Work Phone: [facility] 07-16-2024 14:59-0400 Systolic blood pressure 110 mm[Hg] Haile Junior MANAGER [employer] Work Phone: [facility] 07-12-2024 11:22-0400 Body height 160 cm Ed Suze DO Work Phone: [facility] 07-12-2024 11:22-0400 Body mass index (BMI) [Ratio] 30.29 kg/m2 Ed Suze DO Work Phone: [facility] 07-12-2024 11:22-0400 Body weight 77.56 kg Ed Suze DO Work Phone: [facility] 07-12-2024 11:22-0400 Diastolic blood pressure 84 mm[Hg] Ed Suze DO Work Phone: [facility] 07-12-2024 11:22-0400 Systolic blood pressure 130 mm[Hg] Ed Suze DO Work Phone: [facility] 06-07-2024 10:35-0400 Body mass index (BMI) [Ratio] 29.76 kg/m2 Ed Suze DO Work Phone: [facility] 06-07-2024 10:35-0400 Body weight 76.2 kg Ed Suze DO Work Phone: [facility] 06-07-2024 10:35-0400 Diastolic blood pressure 64 mm[Hg] Ed Suze DO Work Phone: [facility] 06-07-2024 10:35-0400 Systolic blood pressure 110 mm[Hg] Ed Suze DO Work Phone: [facility] Healthcare Encounters Encounter Date Encounter Type Care Provider Facility Start: 03-13-2025 End: 03-13-2025 Bamboo flowsheet Ed Suze DO Work Phone: [facility] Start: 03-13-2025 End: 03-13-2025 Bamboo flowsheet Ed Suze DO Work Phone: [facility] Start: 03-13-2025 End: 03-13-2025 Patient encounter procedure Ed Arciniega DO Work Phone: [facility] Start: 03-13-2025 End: 03-13-2025 Periodic preventive med est patient 18-39 yrs Ed Arciniega DO Work Phone: [facility] Comment on above: Well woman exam with routine gynecological exam Start: 12-31-2024 End: 12-31-2024 [facility] Start: 12-31-2024 End: 12-31-2024 Subsequent hospital visit by physician Haile Godfrey NP Work Phone: [facility] Comment on above: Irregular menses Start: 11-28-2024 End: 11-28-2024 ambulatory SUSHMAPAOLA SHARMA [facility] Start: 11-28-2024 End: 11-28-2024 Subsequent hospital visit by physician Haile Junior APRN - HR DIRECTOR Work Phone: [facility] Comment on above: Irregular menses Start: 11-01-2024 End: 11-06-2024 Orders Only Haile Junior APRN[employer] Work Phone: [facility] Start: 10-27-2024 End: 10-27-2024 ambulatory [facility] Start: 10-27-2024 Encounter for genera l adult medical examination without abnormal findings [facility] Start: 10-24-2024 End: 10-24-2024 Patient encounter status Haile Junior MANAGER PAYMENT-SVP MONETIZATION Work Phone: [employer] [facility] Work Phone: Start: 10-24-2024 End: 10-24-2024 Periodic preventive med est patient 18-39 yrs Haile Junior MANAGER PAYMENT-SVP MONETIZATION [facility] Comment on above: Wellness examination (Primary Dx); Weight gain; Obesity (BMI 30-39.9) Start: 10-24-2024 End: 10-24-2024 ambulatory [facility] Start: 10-24-2024 Encounter for genera l adult medical examination without abnormal findings [facility] Start: 07-16-2024 End: 07-16-2024 ambulatory [facility] Start: 07-16-2024 End: 07-16-2024 Office outpatient visit 10 minutes Hailetomer Junior MANAGER PAYMENT-SVP MONETIZATION Work Phone: [facility] Comment on above: Vitamin D deficiency (Primary Dx); Health maintenance examination; Chronic fatigue; Encounter for lipid screening for cardiovascular disease Start: 07-16-2024 End: 07-16-2024 Patient encounter status Haile Junior MANAGER PAYMENT-SVP MONETIZATION Work Phone: [facility] Start: 07-12-2024 End: 07-12-2024 Bamboo flowsheet Ed Suze DO Work Phone: [facility] Start: 07-12-2024 End: 07-12-2024 Bamboo flowsheet Ed Suze DO Work Phone: [facility] Start: 07-12-2024 End: 07-12-2024 Postop follow up visit related to original px Ed Suze DO Work Phone: [facility] Comment on above: Pelvic pain in femal e; Fallopian tube disorder; Endometriosis Start: 07-12-2024 End: 07-12-2024 ambulatory ED SUZE Not Available Start: 07-06-2024 End: 07-06-2024 Emergency department patient visit [facility] Start: 07-06-2024 End: 07-06-2024 Clinisync Result Encounter Ed Suze DO Work Phone: [facility] Unsolicited Start: 07-06-2024 End: 07-06-2024 Clinisync Result Encounter Ed Suze DO Work Phone: [facility] Unsolicited Start: 06-07-2024 End: 06-07-2024 Office outpatient visit 15 minutes Ed Suze DO Work Phone: [facility] Comment on above: Pre-op examination; Pelvic pain in female; Fallopian tube disorder Start: 06-07-2024 End: 06-07-2024 Preprocedural examination done Edruy Rosenbergo DO Work Phone: [facility] Start: 06-07-2024 End: 06-07-2024 ambulatory ED SUZE Not Available Start: 05-22-2024 End: 05-22-2024 Telemedicine consultation with patient Marzena Martines MD Work Phone: Gastroenterology Start: 05-22-2024 End: 05-22-2024 ambulatory Marzena Martines MD Work Phone: Gastroenterology Comment on above: LLQ abdominal pain ( Primary Dx); Bloating Start: 05-09-2024 End: 05-09-2024 ambulatory ED SUZE Not Available Start: 05-07-2024 End: 05-07-2024 ambulatory MARZENA MARTINES Facility:[facility] Start: 05-07-2024 End: 05-07-2024 Subsequent hospital visit by physician [facility] Work Phone: [facility] General Comment on above: LLQ abdominal [...] Phone: Gastroenterology Start: 08-22-2023 End: 08-22-2023 ambulatory [facility] Start: 03-09-2023 End: 03-09-2023 ambulatory [facility] Start: 10-05-2022 End: 10-05-2022 ambulatory [facility] Start: 07-07-2022 End: 07-07-[address] ED ARCINIEGA Facility:[facility] Start: 04-15-[address] ED ARCINIEGA Facility :[facility] Start: 04-14-2022 End: 04-15-[address] ED ARCINIEGA Facility:[facility] Start: 03-03-2022 End: 03-03-2022 ambulatory Marzena Martines MD Work Phone: Gastroenterology Comment on above: H/O Clostridium diff icile infection (Primary Dx) Start: 03-03-2022 End: 03-03-2022 Telemedicine consultation with patient Marzena Martines MD Work Phone: [facility] Start: 08-05-[address] ED ARCINIEGA Facility :[facility] Procedures Date Procedure Procedure Detail Performing Clinician Start: 12-31-2024 Assay of progesterone S ashok Sharma MANAGER PAYMENT - CNM Work Phone: Start: 11-28-2024 Gonadotropin follicl e stimulating hormone Sushma Sharma MANAGER PAYMENT - CNM Work Phone: Start: 10-24-2024 Adult depression scr eening assessment Haile Junior MANAGER PAYMENT-[employer]P MONETIZATION Work Phone: Start: 07-16-2024 Follow-up visit Follow-up [facility] Start: 07-16-2024 Adult depression scr eening assessment Haile Junior MANAGER PAYMENT-[employer]P MONETIZATION Work Phone: Start: 07-06-2024 ALL CBC WITH AUTO DIFF Ed Arciniega DO Work Phone: Start: 08-22-2023 Follow-up visit Follow-up [facility] Start: 07-11-2023 Microscopic observat ion [Identifier] in Cervix by Cyto stain Haile Junior MANAGER PAYMENT-[employer]P MONETIZATION Work Phone: Start: 07-11-2023 Cytp cerv/vag auto t hin layer prep mnl screen Ed Suze DO Work Phone: Plan of Treatment Date Care Activity Detail Author Start: 07-11-2026 Screening for malignant neoplasm of cervix Pap Smear [facility] Start: 11-28-2025 Depression Screen Depression Screen [facility] [employer] Start: 10-27-2025 Tobacco Screening Tobacco Screening [facility] Start: 10-24-2025 Adult BMI Screening Adult BMI Screening [facility] Start: 10-24-2025 Depression Screening Depression Screening [facility] Start: 10-24-2025 Tobacco Screening Tobacco Screening [facility] Start: 07-16-2025 Adult BMI Screening [facility] Start: 07-16-2025 Depression Screening Depression Screening [facility] Start: 07-16-2025 Tobacco Screening Tobacco Screening [facility] Start: 04-26-2025 Influenza vaccination Flu vaccine (Season Ended) [facility] [employer] Start: 03-13-2025 End: 03-13-2025 Patient encounter procedure 03/13/2025 2:00 PM EDT Office Visit [facility] [address] [place] [address] Ed Arciniega, DO [address] [place] [address] Arrived [facility] Comment on above: Arrived Start: 10-24-2024 End: 10-24-2024 Patient encounter procedure 10/24/2024 3:00 PM EST Office Visit [facility] [address] [place] [address], [place] [address] Haile Junior APRN-CNP [address] [place] [address], [facility] [place] [address] [facility] Start: 10-16-2024 End: 07-16-2025 CBC W Auto Differential panel - Blood CBC auto differential Lab Routine Health maintenance examination Chronic fatigue Expected: 10/16/2024 (Approximate), Expires: 07/16/2025 [facility] Comment on above: Expected: 10/16/2024 (Approximate), Expi res: 07/16/2025 Start: 10-16-2024 End: 07-16-2025 Comprehensive metabolic 2000 panel - Serum or Plasma Comprehensive metabolic panel Lab Routine Health maintenance examination Chronic fatigue Expected: 10/16/2024 (Approximate), Expires: 07/16/2025 [facility] Comment on above: Expected: 10/16/2024 (Approximate), Expi res: 07/16/2025 Start: 10-16-2024 End: 07-16-2025 Cyanocobalamin vitamin b-12 Vitamin B12 Lab Routine Health maintenance examination Chronic fatigue Expected: 10/16/2024 (Approximate), Expires: 07/16/2025 [facility] Comment on above: Expected: 10/16/2024 (Approximate), Expi res: 07/16/2025 Start: 10-16-2024 End: 07-16-2025 Lipid 1996 panel - Serum or Plasma Lipid profile Lab Routine Health maintenance examination Encounter for lipid screening for cardiovascular disease Expected: 10/16/2024 (Approximate), Expires: 07/16/2025 [facility] Comment on above: Expected: 10/16/2024 (Approximate), Expi res: 07/16/2025 Start: 10-16-2024 End: 07-16-2025 Magnesium [Mass/volume] in Serum or Plasma Magnesium Lab Routine Health maintenance examination Chronic fatigue Expected: 10/16/2024 (Approximate), Expires: 07/16/2025 [facility] Comment on above: Expected: 10/16/2024 (Approximate), Expi res: 07/16/2025 Start: 10-16-2024 End: 07-16-2025 TSH with Reflex TSH with Reflex Lab Routine Health maintenance examination Chronic fatigue Expected: 10/16/2024 (Approximate), Expires: 07/16/2025 [facility] Comment on above: Expected: 10/16/2024 (Approximate), Expi res: 07/16/2025 Start: 10-16-2024 End: 07-16-2025 Vitamin D 25 hydroxy Vitamin D 25 hydroxy Lab Routine Vitamin D deficiency Health maintenance examination Chronic fatigue Expected: 10/16/2024 (Approximate), Expires: 07/16/2025 [facility] Work Phone: Comment on above: Expected: 10/16/2024 (Approximate), Expi res: 07/16/2025 Start: 08-29-2024 End: 08-29-2024 Patient encounter procedure 08/29/2024 3:00 PM EST Office Visit [facility] [address] [facility] [place] [id number] Maria Esther Irwin PA [address] [place] [address] [facility] Start: 07-12-2024 End: 07-12-2024 Patient encounter procedure 07/12/2024 11:30 AM EDT Office Visit [facility] [address] [place] [id number] Ed Arciniega, DO [address] [place], [place] [id number] Arrived [facility] Comment on above: Arrived Start: 07-06-2024 End: 07-06-2024 Patient encounter procedure 07/06/2024 7:30 AM EDT Procedure Visit [facility] Ed Arcineiga, DO [address] [place], [place] [id number] [facility] Start: 05-27-2024 COVID-19 Vaccine ( season) COVID-19 Vaccine ( season) [facility] Start: 05-27-2024 Influenza vaccination [facility] Start: 05-22-2024 End: 05-22-2024 Follow-up encounter 05/22/2024 4:00 PM EDT [facility] Gastroenterology [address] [place] [address] Marzena Martines MD [address] [place] [address] Follow up virtual vis in 3-4 weeks Gastroenterology Comment on above: Follow up virtual vis in 3-4 weeks Start: 04-26-2024 Influenza vaccination Flu vaccine (#1) [facility] Start: 04-23-2024 End: 07-23-2024 C reactive protein [Mass/volume] in Serum or Plasma C-REACTIVE PROTEIN Lab Routine LLQ abdominal pain Bloating Expected: 04/23/2024, Expires: 07/23/2024 [facility] Comment on above: Expected: 04/23/2024, Expires: Start: 04-23-2024 End: 07-23-2024 CBC panel - Blood by Automated count COMPLETE BLOOD COUNT Lab Routine LLQ abdominal pain Bloating Expected: 04/23/2024, Expires: 07/23/2024 [facility] Comment on above: Expected: 04/23/2024, Expires: Start: 04-23-2024 End: 07-23-2024 [employer] HLA-DQ GENOTYPE [employer] HLA-DQ GENOTYPE Lab Routine LLQ abdominal pain Bloating Expected: 04/23/2024, Expires: 07/23/2024 [facility] Comment on above: Expected: 04/23/2024, Expires: Start: 04-23-2024 End: 07-23-2024 Choriogonadotropin ( test) [Presence] in Urine HCG, QUALITATIVE, URINE Lab Routine LLQ abdominal pain Bloating Expected: 04/23/2024, Expires: 07/23/2024 [facility] Work Phone: Comment on above: Expected: 04/23/2024, Expires: Start: 04-23-2024 End: 07-23-2024 Comprehensive metabolic 2000 panel - Serum or Plasma COMPREHENSIVE METABOLIC PANEL Lab Routine LLQ abdominal pain Bloating Expected: 04/23/2024, Expires: 07/23/2024 [facility] Comment on above: Expected: 04/23/2024, Expires: Start: 04-23-2024 End: 07-23-2024 Erythrocyte sedimentation rate SEDIMENTATION RATE, WESTERGREN Lab Routine LLQ abdominal pain Bloating Expected: 04/23/2024, Expires: 07/23/2024 [facility] Comment on above: Expected: 04/23/2024, Expires: Start: 04-23-2024 End: 07-23-2024 GLIADIN (DEAMINATED) ABS GLIADIN (DEAMINATED) ABS Lab Routine LLQ abdominal pain Bloating Expected: 04/23/2024, Expires: 07/23/2024 [facility] Comment on above: Expected: 04/23/2024, Expires: Start: 04-23-2024 End: 07-23-2024 IgA [Mass/volume] in Serum or Plasma IMMUNOGLOBULIN A Lab Routine LLQ abdominal pain Bloating Expected: 04/23/2024, Expires: 07/23/2024 [facility] Comment on above: Expected: 04/23/2024, Expires: Start: 04-23-2024 End: 07-23-2024 Tissue transglutaminase IgA Ab [Units/volume] in Serum TRANSGLUTAMINASE IGA Lab Routine LLQ abdominal pain Bloating Expected: 04/23/2024, Expires: 07/23/2024 [facility] Comment on above: Expected: 04/23/2024, Expires: Start: 10-21-2023 Screening for Chlamydia trachomatis Chlamydia Screening [facility] Start: 09-26-2023 Behavioral Health Screening Behavioral Health Screening [facility] Start: 05-27-2023 Covid-19 Vaccine ( season) Covid-19 Vaccine ( season) [facility] Start: 05-27-2022 Influenza vaccination INFLUENZA (Season Ended) [facility] Start: 05-24-2022 DTaP,Tdap and Td Vaccines (7 - Td or Tdap) DTaP,Tdap and Td Vaccines (7 - Td or Tdap) [facility] Start: 05-24-2022 Urine microalbumin profile DTaP,Tdap,Td Vaccine (7 - Td or Tdap) [facility] Start: 2021 PAP TESTING PAP TESTING [facility] Start: 2021 Screening for malignant neoplasm of cervix [facility] Start: 2019 DTaP/Tdap/Td vaccine (1 - Tdap) DTaP/Tdap/Td vaccine (1 - Tdap) [facility] Start: 2019 Hepatitis B vaccine (1 of 3 - 19+ 3-dose series) Hepatitis B vaccine (1 of 3 - 19+ 3-dose series) [facility] Start: 2019 Pneumococcal 0-49 years Vaccine (1 of 2 - PCV) Pneumococcal 0-49 years Vaccine (1 of 2 - PCV) [facility] Start: 2019 Urine microalbumin profile DTAP,TDAP,TD (1 - Tdap) [facility] Start: 2018 Adult BMI Follow Up Plan Adult BMI Follow Up Plan [facility] Start: 2018 Anxiety Screening Anxiety Screening [facility] Start: 2018 CHLAMYDIA SCREENING (18-24) CHLAMYDIA SCREENING (18-24) [facility] Start: 2018 Depression Screening Depression Screening [facility] Start: 2018 GC (GONORRHEA) SCREENING (18-24) GC (GONORRHEA) SCREENING (18-24) [facility] Start: 2018 HEPATITIS C SCREENING HEPATITIS C SCREENING [facility] Start: 2018 Hepatitis C screening [facility] Start: 2018 HIV SCREENING HIV SCREENING [facility] Start: 2018 HIV screening HIV Screening [facility] Start: 2018 Screening for Chlamydia trachomatis Chlamydia Screening (18-24) [facility] Start: 2016 Meningococcal B Vaccine: Consider Based On Risk (1 of 2 - Patient Seeks Protection) Meningococcal B Vaccine: Consider Based On Risk (1 of 2 - Patient Seeks Protection) [facility] Start: 2016 Screening for Chlamydia trachomatis Chlamydia/GC screen [facility] Start: 2015 HIV screening HIV screen [facility] Start: 2015 HPV Vaccine (1 - 3-dose series) HPV Vaccine (1 - 3-dose series) [facility] Start: 2014 PEDS TO ADULT TRANSITION ANNUAL ASSESSMENT PEDS TO ADULT TRANSITION ANNUAL ASSESSMENT [facility] Start: 2013 Varicella vaccine (1 of 2 - 13+ 2-dose series) Varicella vaccine (1 of 2 - 13+ 2-dose series) [facility] Start: 2012 Adult depression screening assessment DEPRESSION SCREENING [facility] Start: 2012 PEDS TO ADULT TRANSITION INITIAL DISCUSSION PEDS TO ADULT TRANSITION INITIAL DISCUSSION [facility] Start: 2011 HPV VACCINE (1 - 2-dose series) HPV VACCINE (1 - 2-dose series) [facility] Start: 2010 MENINGOCOCCAL B: Consider based on risk (1 of 2 - Risk Bexsero 2-dose series) MENINGOCOCCAL B: Consider based on risk (1 of 2 - Risk Bexsero 2-dose series) [facility] Start: 2005 COVID-19 VACCINE (#1) COVID-19 VACCINE (#1) [facility] Start: 2000 Tobacco Counseling Tobacco Counseling [facility] Calprotectin [Mass/m ass] in Stool CALPROTECTIN,FECAL Lab Routine LLQ abdominal pain Bloating Ordered: 04/23/2024 [facility] Comment on above: Ordered: 04/23/2024 Clostridioides diffi cile toxin genes [Presence] in Stool by ARGENIS with probe detection C. DIFFICILE PCR Lab Routine LLQ abdominal pain Bloating Ordered: 04/23/2024 [facility] Comment on above: Ordered: 04/23/2024 Cytology Cervical or vaginal smear or scraping study Pap Smear Pathology and Cytology Routine Well woman exam with routine gynecological exam Ordered: 03/13/2025 [facility] Work Phone: Comment on above: Ordered: 03/13/2025 ENTERIC BACTERIAL PA RIVKA BY PCR ENTERIC BACTERIAL PANEL BY PCR Lab Routine LLQ abdominal pain Bloating Ordered: 04/23/2024 [facility] Comment on above: Ordered: 04/23/2024 FECAL LACTOFERRIN/LEUKOCYTES FECAL LACTOFERRIN/LEUKOCYTES Lab Routine LLQ abdominal pain Bloating Ordered: 04/23/2024 [facility] Comment on above: Ordered: 04/23/2024 Giardia lamblia+Cryptosporidium sp Ag [Presence] in Stool by Immunoassay CRYPTOSPORIDIUM AND GIARDIA ANTIGENS BY EIA Microbiology Routine LLQ abdominal pain Bloating Ordered: 04/23/2024 [facility] Comment on above: Ordered: 04/23/2024 End: 05-23-2025 XR Abdomen Supine and Upright XR ABDOMEN 2V ROUTINE SUPINE W UPRIGHT/DECUB/CTL Radiology Routine LLQ abdominal pain Bloating 1 Occurrences starting 04/23/2024 until 05/23/2025 [facility] Comment on above: 1 Occurrences starting 04/23/2024 until 05/23/2025 XR Abdomen Supine an d Upright XR ABDOMEN 2V ROUTINE SUPINE W UPRIGHT/DECUB/CTL Radiology Routine LLQ abdominal pain Bloating 05/07/2024 9:35 AM EDT [facility] Work Phone: Payers Date Payer Category Payer Private Health Insurance [id number] 2022 Medicaid [id number] 2022 Medicaid [id number] 2021 Medicaid [employer]ICA[employer] [id number] 2021-Present [phone] [address] [place] [address] Medicaid [id number] 2000 Unknown [id number]. 593 2000 Unknown [id number]. 593 2000 Unknown [id number]. 593 2000 Unknown [id number]. 593 2000 Unknown [id number]. 1259 2000 Unknown [id number]. 1259 2000 Unknown [id number]. 1259 2000 Unknown [id number] [id number]. 1286 2000 Unknown [id number] [id number]. 1286 2000 Unknown [id number]. 1286 2000 Unknown [id number] [id number]. 1286 2000 Unknown [id number] [id number]. 173 2000 Unknown [id number]. 173 1959 Self-pay 1959 Unknown [id number] Social History Date Type Detail Facility Tobacco smoking stat [facility] Tobacco smoking consumption unknown [facility] Start: 2000 Sex Assigned At Not on file [facility] Start: 10-14-2022 End: 06-07-2024 History of Social function [facility] Start: 10-14-2022 End: 06-07-2024 Area Deprivation Index [facility] National Score (1-10 0), lower number is lower risk 94 [facility] Start: 06-07-2024 [facility] End: 09-26-2019 History of tobacco use Current smoker [facility] End: 09-26-2019 History of tobacco use Cigarette Smoker [facility] Start: 06-07-2024 End: 03-13-2025 Alcoholic beverage intake Lifetime non-drinker (finding) [facility] Start: 06-29-2023 Alcohol Comment caffeine: 1-2 cups per day [facility] Start: 08-04-2023 Tobacco smoking stat [facility] Occasional tobacco smoker [facility] History of tobacco use Tobacco U se Types Packs/Day Years Used Date Smoking Tobacco: Some Days Vaping/E-cigarettes Smokeless Tobacco: Never [facility] Start: 08-04-2023 End: 11-28-2024 Tobacco use and exposure Smokeless tobacco non-user [facility] Start: 10-27-2024 End: 11-28-2024 Alcoholic beverage intake Current drinker of alcohol (finding) [facility] How hard is it for y ou to pay for the very basics like food, housing, medical care, and heating Not very hard [facility] Start: 03-09-2019 Alcohol Comment rarely [facility] Start: 05-01-2015 End: 10-29-2024 Sex Female (finding) [facility] Start: 11-28-2024 [facility] [employer] Has the electric, [employer] oil, or water company threatened to shut off services in your home in past 12Mo No [employer] (I/We) worried ranjan brown (my/our) food would run out before (I/we) got money to buy more. Never true [facility] [employer] Start: 11-28-2024 Alcohol Comment social [employer] Clinical Notes 03-03-2022 to 03-13-2025 Jessica Vega MA - 03/13/2025 2:00 PM Cecilio Magallon LPN - 03/13/2025 2:00 PM EDTTelephone Encounter - Luz Moreau CMA - 11/01/2024 11:58 AM Marsha Martinez LPN - 07/12/2024 11:30 AM EDT Note Date & Type Note Facility 03-13-2025 History of Present illness Narrative ` Reason for Appointment: Patient ID: Nayana Swan [...] / LYSIS 07/06/2024 PAP SMEAR 05/04/2021 normal IA LAP,LYSIS OF ADHESIONS lysis of adhesions on [...] nursing note reviewed. Exam conducted with a marshmallow runner present. Vitals: Estimated body mass index is 28.61 kg/m as calculated from the following: Height as [...] with those once we have them. Patient can also view results via [employer]. I reinforced importance of condom use for [...] Ed Arciniega DO documented in this encounter [facility] 11-01-2024 Miscellaneous Notes Patient called stating she just got two new rx at pharmacy and no one has called to tell her what they are for. She also seen in her mychart her labs were back and no one called her on the results. I informed her what was in chart on the labs and let her know what was sent over was vit b and vit d. Patient states she seen her lipid came back abnormal and wants to know if she should be on something for that. Please advise? ----- Message from ROSALBA Poon sent at 11/01/2024 8:16 AM EST ----- Vitamin-D is low supplement sent in. Vitamin-B is low end of normal I also sent in supplement. Otherwise labs are unremarkable. Cholesterol is low. So it is not concerning. We will continue to monitor. Tried to call patient but no answer so I left a voicemail. documented in this encounter [facility] 11-01-2024 Telephone encounter Note Patient called stating she just got two new rx at pharmacy and no one has called to tell her what they are for. She also seen in her mychart her labs were back and no one called her on the results. I informed her what was in chart on the labs and let her know what was sent over was vit b and vit d. Patient states she seen her lipid came back abnormal and wants to know if she should be on something for that. Please advise[facility] 11-01-[facility]24 Telephone encounter Note ----- Message from ROSALBA Poon sent at 11/01/2024 8:16 AM EST ----- Vitamin-D is low supplement sent in. Vitamin-B is low end of normal I also sent in supplement. Otherwise labs are unremarkable. [facility] 11-01-2024 Telephone encounter Note Cholesterol is low. So it is not concerning. We will continue to monitor. [facility] [place] [facility] 11-01-2024 Telephone encounter Note Tried to call patient but no answer so I left a voicemail. [facility] [place] [facility] 10-24-2024 History of Present illness Narrative Subjective Patient ID: Nayana Swan is a 24 y.o. female. CRICKET Kraus presents to the office for wellness. No concerns today. 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 Arciniega for endometriosis and routine PAP, discussed possible referral to fertility specialist. She is looking into holistic diet. She is trying an antiinflammatory diet GI for abdominal pain, now following as needed. The following portions of the patient's history were reviewed and updated as appropriate: allergies, current medications, past family history, past medical history, past social history, past surgical history, problem list, and medication reconciliation was completed including current medication and post discharge medication. Review of Systems Constitutional: Negative for chills, diaphoresis, fatigue, fever and unexpected weight change. HENT: Negative. Eyes: Negative. Respiratory: Negative for cough, chest tightness, shortness of breath and wheezing. Cardiovascular: Negative for chest pain, palpitations and leg swelling. Gastrointestinal: Negative for abdominal pain, diarrhea, nausea and vomiting. Endocrine: Negative for polydipsia, polyphagia and polyuria. Genitourinary: Negative for difficulty urinating, frequency, hematuria and urgency. Musculoskeletal: Negative for arthralgias, gait problem, joint swelling and neck pain. Skin: Negative. Neurological: Negative for dizziness, syncope, weakness, light-headedness, numbness and headaches. Psychiatric/Behavioral: Negative for self-injury and suicidal ideas. Objective Physical Exam Vitals and nursing note reviewed. Constitutional: General: She is not in acute distress. Appearance: Normal appearance. She is well-developed. She is not ill-appearing. HENT: Head: Normocephalic and atraumatic. Right Ear: Tympanic membrane, ear canal and external ear normal. Left Ear: Tympanic membrane, ear canal and external ear normal. Nose: Nose normal. Mouth/Throat: Mouth: Mucous membranes are moist. Pharynx: Oropharynx is clear. Eyes: Extraocular Movements: Extraocular movements intact. Pupils: Pupils are equal, round, and reactive to light. Neck: Vascular: No carotid bruit. Cardiovascular: Rate and Rhythm: Normal rate and regular rhythm. Pulses: Normal pulses. Heart sounds: Normal heart sounds. No murmur heard. Pulmonary: Effort: Pulmonary effort is normal. No respiratory distress. Breath sounds: Normal breath sounds. No wheezing, rhonchi or rales. Chest: Chest wall: No tenderness. Abdominal: General: Bowel sounds are normal. Palpations: Abdomen is soft. Tenderness: There is no abdominal tenderness. Musculoskeletal: General: Normal range of motion. Cervical back: Normal range of motion and neck supple. No rigidity or tenderness. Right lower leg: No edema. Left lower leg: No edema. Lymphadenopathy: Cervical: No cervical adenopathy. Skin: General: Skin is warm and dry. Capillary Refill: Capillary refill takes less than 2 seconds. Findings: No rash. Neurological: General: No focal deficit present. Mental Status: She is alert and oriented to person, place, and time. Motor: No weakness. Psychiatric: Mood and Affect: Mood normal. Behavior: Behavior normal. Assessment/Plan Health maintenance reviewed. Wellness labs previously ordered. I do not see that they were completed. She will complete. She follows with [facility] for routine PAP. Discussed vaccines. Declines flu vaccine. Continue to follow up with specialists. We discussed lifestlyle modifications for elevated BMI indicating obesity. And medications for weight management. Pending lab results we can further discuss. Education provided for different medications for weight loss, she will review. Otherwise healthy adult. Nayana was seen today for wellness. Diagnoses and all orders for this visit: Wellness examination - Insulin; Future Weight gain - Insulin; Future Obesity (BMI 30-39.9) - Insulin; Future ROSALBA Poon 10/27/24 [address] [facility] History of Present illness Narrative Subjective Patient ID: Nayana Swan is a 24 y.o. female. HPI Nayana presents to the office for follow up on endometriosis and vitamin D deficiency. Vitamin D was low 08/09/2023 I sent in supplement. She has been taking daily multivitamin consistently for one month. This multivitamin has Vitamin D 800 IU, Vitamin b12- 12 mcg, B6 8.5 mg. She is also taking 200 mg l- thanning, and 2 magnesium tablets at . She also reports that she has noticed more headaches the last few months as well. She is following with Dr. Arciniega for endometriosis but has was also referred to [facility] specialist in [place] as she is trying to conceive. She is also following with gastroenterology for abdominal pain. The following portions of the patient's history were reviewed and updated as appropriate: allergies, current medications, past family history, past medical history, past social history, past surgical history, problem list, and medication reconciliation was completed including current medication and post discharge medication. Review of Systems Constitutional: Positive for fatigue. HENT: Negative. Respiratory: Negative. Cardiovascular: Negative. Skin: Negative. Neurological: Negative. Objective Physical Exam Vitals and nursing note reviewed. Constitutional: General: She is not in acute distress. Appearance: Normal appearance. She is well-developed. She is not ill-appearing. HENT: Head: Normocephalic and atraumatic. Right Ear: External ear normal. Left Ear: External ear normal. Nose: Nose normal. Mouth/Throat: Mouth: Mucous membranes are moist. Pharynx: Oropharynx is clear. No oropharyngeal exudate or posterior oropharyngeal erythema. Eyes: Extraocular Movements: Extraocular movements intact. Pupils: Pupils are equal, round, and reactive to light. Neck: Vascular: No carotid bruit. Cardiovascular: Rate and Rhythm: Normal rate and regular rhythm. Pulses: Normal pulses. Heart sounds: Normal heart sounds. No murmur heard. Pulmonary: Effort: Pulmonary effort is normal. No respiratory distress. Breath sounds: Normal breath sounds. No wheezing or rhonchi. Abdominal: General: Bowel sounds are normal. There is no distension. Palpations: Abdomen is soft. There is no mass. Tenderness: There is no abdominal tenderness. There is no guarding or rebound. Hernia: No hernia is present. Musculoskeletal: General: Normal range of motion. Cervical back: Normal range of motion. Right lower leg: No edema. Left lower leg: No edema. Skin: General: Skin is warm and dry. Capillary Refill: Capillary refill takes less than 2 seconds. Findings: No erythema or rash. Neurological: General: No focal deficit present. Mental Status: She is alert and oriented to person, place, and time. Psychiatric: Mood and Affect: Mood normal. Behavior: Behavior normal. Assessment/Plan Continue supplement. Continue to follow up with specialists. She is due for wellness, labs ordered to be completed prior to next visit. Nayana was seen today for follow-up. Diagnoses and all orders for this visit: Vitamin D deficiency - Vitamin D 25 hydroxy; Future Health maintenance examination - Vitamin D 25 hydroxy; Future - TSH with Reflex; Future - Vitamin B12; Future - Magnesium; Future - CBC auto differential; Future - Comprehensive metabolic panel; Future - Lipid profile; Future Chronic fatigue - Vitamin D 25 hydroxy; Future - TSH with Reflex; Future - Vitamin B12; Future - Magnesium; Future - CBC auto differential; Future - Comprehensive metabolic panel; Future Encounter for lipid screening for cardiovascular disease - Lipid profile; Future ROSALBA Poon 07/19/24 1046 documented in this encounter [facility] 07-12-2024 History of Present illness Narrative Reason for Appointment: Patient ID: Nayana Swan is a 24 y.o. female who presents for Post-op Visit Patient presents today for Consult appointment. MEDICATIONS Current Outpatient Medications Medication Instructions acetaminophen (TYLENOL) 500 mg, Oral, Every 6 hours PRN cholecalciferol (VITAMIN D-3) 50,000 Units, Oral cyclobenzaprine (FLEXERIL) 10 mg, Oral, 2 times daily PRN EQ Pain Reliever 500 mg, Oral, Every [...] History: Diagnosis Date Bulging lumbar disc Depression (CMS/HCC) Infertility, female Irregular bleeding HISTORY PAST MEDICAL HISTORY SOCIAL HISTORY Past Medical History: Diagnosis Date Bulging lumbar disc Depression (CMS/HCC) Infertility, female Irregular bleeding Social History Tobacco Use Smoking status: Former Current packs/day: 0.00 Types: Cigarettes Quit date: 09/2019 Years since quittin.7 Smokeless tobacco: Not on file Substance Use Topics Alcohol use: Never Comment: caffeine: 1-2 cups per day Drug use: Not on file FAMILY HISTORY Family History Problem Relation Name Age of Onset Hypertension Father SURGICAL HISTORY Past Surgical History: Procedure Laterality Date LAPAROSCOPY DIAGNOSTIC / BIOPSY / ASPIRATION / LYSIS 07/06/2024 PAP SMEAR 05/04/2021 normal [place] LAP,LYSIS OF ADHESIONS lysis of adhesions on ovary WISDOM TOOTH EXTRACTION wisdom teeth REVIEW OF SYSTEMS Review of Systems: Review of Systems All other systems reviewed and are negative. OBJECTIVE Objective: Physical Exam Constitutional: Appearance: Normal appearance. She is well-developed. Cardiovascular: Rate and Rhythm: Normal rate and [...] nursing note reviewed. Exam conducted with a marshmallow runner present. Vitals: Estimated body mass index is 30.29 kg/m as calculated from the following: Height as of this encounter: 5' 3 . Weight as of this encounter: 171 lb. BP: 130/84 Patient's last menstrual period was 07/06/2024. ASSESSMENT & PLAN Patient presents for follow up diagnostic lap and that tubes are blocked and patient does have endometriosis. Patient will be referred to [facility] specialist in [place] and semen analysis give to patient for spouse: Kandi Sheldon : 11/18/1999. Patient to return to clinic for routine annual appointment. Documented by Sushma Martinez LPN on behalf of: Ed Arciniega DO documented in this encounter [facility] 06-07-2024 History of Present illness Narrative Reason for Appointment: Patient ID: Nayana Swan is a 24 y.o. female who presents for Pre-op Visit Patient presents today for Pre Op appointment. Patient is scheduled to undergo Diagnostic Laparoscopy, possible LAURIE, possible FOE, possible BSO, possible Chromopertubation on 07/06/[address] Arciniega at [facility]. MEDICATIONS No current outpatient medications ALLERGIES Allergies Allergen Reactions Codeine GI intolerance Hydrocodone-Acetaminophen Hives PROBLEMS Active Ambulatory Problems Diagnosis Date Noted No Active Ambulatory Problems Resolved Ambulatory Problems Diagnosis Date Noted No Resolved Ambulatory Problems Past Medical History: Diagnosis Date Bulging lumbar disc Depression (CMS/HCC) Infertility, female Irregular bleeding HISTORY PAST MEDICAL HISTORY SOCIAL HISTORY Past Medical History: Diagnosis Date Bulging lumbar disc Depression (CMS/HCC) Infertility, female Irregular bleeding Social History Tobacco Use Smoking status: Former Current packs/day: 0.00 Types: Cigarettes Quit date: 09/2019 Years since quittin.7 Smokeless tobacco: Not on file Substance Use Topics Alcohol use: Never Comment: caffeine: 1-2 cups per day Drug use: Not on file FAMILY HISTORY Family History Problem Relation Name Age of Onset Hypertension Father SURGICAL HISTORY Past Surgical History: Procedure Laterality Date PAP SMEAR 05/04/2021 normal [place] LAP,LYSIS OF ADHESIONS lysis of adhesions on ovary WISDOM TOOTH EXTRACTION wisdom teeth REVIEW OF SYSTEMS Review of Systems: Review of Systems Constitutional: Negative. HENT: Negative. Eyes: Negative. Respiratory: Negative. Cardiovascular: Negative. Gastrointestinal: Negative. Genitourinary: Positive for pelvic pain. Musculoskeletal: Negative. Skin: Negative. Neurological: Negative. All other systems reviewed and are negative. Hematological: Negative. Endocrine: Negative. Allergic/Immunologic: Negative. OBJECTIVE Objective: Physical Exam Constitutional: Appearance: Normal appearance. She is well-developed. Cardiovascular: Rate and Rhythm: Normal rate and [...] nursing note reviewed. Exam conducted with a marshmallow runner present. Vitals: Estimated body mass index is 28.7 kg/m as calculated from the following: Height as of 05/09/24: 5' 3 . Weight as of 05/09/24: 162 lb. BP: Patient's last menstrual period was 05/05/2024. ASSESSMENT & PLAN ICD-10-CM 1. Pre-op examination Z01.818 2. Pelvic pain in female R10.2 3. Fallopian tube disorder N83.9 Pre Op: Patient is doing well but has complaints of pelvic pain. I have discussed conservative management vs. surgical management with the patient in detail and patient desires surgical management at this time. Patient will undergo Diagnostic Laparoscopy, possible LAURIE, possible FOE, possible BSO, and possible Chromopertubation on 07/06/2024. Surgical consents were signed, mmc was reviewed, and patient is to proceed to [facility] OR. Patient would like to ensure that during surgery extra assessment of bowels is done and ensure to look upwards toward rib cage as that causes a lot of problems. Follow Up: Patient is to follow up between 1-2 weeks post operative to assess proper healing and recovery from procedure. Documented by Sushma Martinez LPN on behalf of: Ed Arciniega DO documented in this encounter [facility] 05-22-2024 History of Present illness Narrative Follow Up Zoom Visit There were no vitals filed for this visit. I have communicated my name and active licensure. The patient's identity and physical location were verified at the time of this visit. Either the patient or their legal senior patient account representative has been informed of the risks [...] which included preparing to see the patient, [id number] patient care, completing clinical documentation, and counseling and educating the patient/family/caregiver. Marzena Martines MD documented in this encounter [facility] 05-22-2024 Note HNO ID: [id number] Author: MARZENA MARTINES MD Service: ? Author Type: Physician Type: Progress Notes Filed: 05/22/2024 17:04 Note Text: Follow Up Zoom Visit There were no vitals filed for this visit. I have communicated my name and active licensure. The patient's identity and physical location were verified at the time of this visit. Either the patient or their legal senior patient account representative has been informed of the risks [...] which included preparing to see the patient, [id number] patient care, completing clinical documentation, and counseling and educating the patient/family/caregiver. Marzena Martines MD [facility] 05-07-2024 History of Present illness Narrative Radiology Service Progress Note PATIENT NAME: Nayana Swan DATE OF SERVICE: May 07, 2024 TIME: [...] PATIENT PRESENTS WITH AN IMPLANTABLE OR ATTACHED HEATER WORKER: No RADIOLOGY DEPARTMENT: General X-ray: Exam(s) Completed: Abdomen X-Ray: Abdomen with Upright PERIPHERAL IV DATA: Not applicable SIGNED BY: RT Jose F(R) May 07, 2024 9:36 AM documented in this encounter [facility] 05-07-2024 Note HNO ID: [id number] Author: MELISSA MONTGOMERY RT(José Miguel) Service: ? Author Type: Technologist Type: Progress Notes Filed: 05/07/2024 09:37 Note Text: Radiology Service Progress Note PATIENT NAME: Nayana Swan DATE OF SERVICE: May 07, 2024 TIME: [...] PATIENT PRESENTS WITH AN IMPLANTABLE OR ATTACHED HEATER WORKER: No RADIOLOGY DEPARTMENT: General X-ray: Exam(s) Completed: Abdomen X-Ray: Abdomen with Upright PERIPHERAL IV DATA: Not applicable SIGNED BY: RT Jose F(R) May 07, 2024 9:36 AM [facility] 04-23-2024 History of Present illness Narrative Called [...] visit. Either the patient or their legal senior patient account representative has been informed of the risks [...] Marzena Martines MD documented in this encounter [facility] 04-23-2024 Note HNO ID: [id number] Author: ?, ?, ? Service: ? Author Type: ? Type: Progress Notes Filed: 04/23/2024 13:33 Note Text: Called patient patient stated that she would give us a call back to scheduled at a later date [facility] 04-20-2024 Note HNO ID: [id number] Author: MARZENA MARTINES MD Service: ? Author Type: Physician Type: Progress Notes Filed: 04/23/2024 11:03 Note Text: Follow Up Zoom Visit There were no vitals filed for this visit. I have communicated my name and active licensure. The patient's identity and physical location were verified at the time of this visit. Either the patient or their legal senior patient account representative has been informed of the risks [...] Visist length 20 minutes Marzena Martines MD [facility] 04-11-2024 Note HNO ID: [id number] Author: MARZENA MARTINES MD Service: ? Author Type: Physician Type: Progress Notes Filed: 04/16/2024 09:03 Note Text: Follow Up Zoom Visit This patient was a no show. Marzena Martines MD [facility] 04-11-2024 History of Present illness Narrative Follow Up Zoom Visit This patient was a no show. Marzena Martines MD documented in this encounter [facility] 08-22-2023 Note Subjective Patient ID: Nayana Swan is a 23 y.o. female who presents for Follow-up. 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 [facility] 03-09-2023 Note Attestation signed by Renee Baker [...] documentation from me. Subjective Patient ID: Nayana Swan is a 22 y.o. female who presents [...] Dennis and Dr Baker RTC 5 months [facility] 10-05-2022 Note Date of Telehealth V isit: 10/06/22 The patient was notified that using 3rd green party telecommunication application (e.g. [employer]) is not HIPAA compliant and may carry some privacy risks: This visit was conducted [id number] with the use of audio technology using [employer] between patient and the provider for a virtual visit. Verbal consent to provide and Tebill this service was obtained on: 10/06/22 No signature was obtained due to the COVID-19 pandemic. Patient Location: Chief Complaint: History of Present Illness: Subjective Patient ID: Nayana Swan is a 22 y.o. female who presents for Follow-up. HPI Date of Telehealth Visit: 10/05/22 The patient was notified that using 3rd green party telecommunication application (e.g. [employer]) is not HIPAA compliant and may carry some privacy risks: This visit was conducted with the use of audio technology using [employer] between patient and the provider for a [...] up in about 4 months (around 02/02/2023). [facility] 03-03-2022 History of Present illness Narrative This patient was a No Show. Marzena Martines MD [facility] Diagnosis H/O Clostridium difficile infection- Primary Personal history of other infectious and parasitic disease [facility] H/O Clostridium difficile infection- Primary Personal history of other infectious and parasitic disease [facility] Diagnosis LLQ abdominal pain- Primary Abdominal pain, left lower quadrant Bloating Flatulence, eructation, and gas pain [facility] Diagnosis LLQ abdominal pain Abdominal pain, left lower quadrant Bloating Flatulence, eructation, and gas pain [facility] Diagnosis LLQ abdominal pain- Primary Abdominal pain, left lower quadrant Bloating Flatulence, eructation, and gas pain [facility] Diagnosis Pelvic pain in female Unspecified symptom associated with female genital organs Fallopian tube disorder Unspecified noninflammatory disorder of ovary, fallopian tube, and broad ligament Endometriosis Endometriosis, site unspecified documented in this encounter [facility]* Diagnosis Pre-op examination Pelvic pain in female Unspecified symptom associated with female genital organs Fallopian tube disorder Unspecified noninflammatory disorder of ovary, fallopian tube, and broad ligament documented in this encounter [facility]* Diagnosis Wellness examination- Primary Weight gain Other symptoms concerning nutrition, metabolism, and development Obesity (BMI 30-39.9) [facility] Diagnosis Vitamin D deficiency- Primary Health maintenance examination Unspecified general medical examination Chronic fatigue Other malaise and fatigue Encounter for lipid screening for cardiovascular disease [facility] Diagnosis Irregular menses Irregular menstrual cycle [facility] Diagnosis Well woman exam with routine gynecological exam Routine gynecological examination documented [facility] encounter [facility]* Attachments The following attachments cannot be sent through Care Everywhere. * Phentermine? ADULT (Somali) * Weight Loss Tips (Somali) * Dulaglutide? ADULT ([place]omali) [facility] on [facility] documented in [facility] SystemInstructionsNot on file documented in this [facility] SystemInstructionsNot on file documented in [facility]Pro[facility] HospitalReason for referral (narrative)* Diagnostic Procedure Only (Routine) - New Request Specialty Diagnoses / Procedures Referred By Koko gonzalez Referred To Contact XR IMAGING Diagnoses LLQ abdominal pain Bloating Procedures XR ABDOMEN 2V ROUTINE SUPINE W UPRIGHT/DECUB/CTL RADIOLOGIC EXAM ABDOMEN 2 VIEWS Marzena Martines MD [address] [place] [id number] [place] [address] Referral ID Status Reason Start Date Expiration Date Visits Requested Visits Authorized [id number] New Request Auto-Generat ed Referral 04/23/2024 05/23/2025 1 [facility]* Diagnostic Procedure Only (Routine) - Closed Specialty Diagnoses / Procedures Referred By Koko gonzalez Referred To Contact XR IMAGING Diagnoses LLQ abdominal pain Bloating Procedures XR ABDOMEN 2V ROUTINE SUPINE W UPRIGHT/DECUB/CTL RADIOLOGIC EXAM ABDOMEN 2 VIEWS Marzena Martines MD [address] [place] [address] [place] [address] Referral ID Status Reason Start Date Expiration Date V isits Requested Visits Authorized [id number] Closed Auto-Generate d Referral 04/23/2024 05/23/2025 1 1 [facility] Summary Purpose Family History No Family [...] section and content) DATE CREATED AUTHOR 06/22/2021 Akin Schaffer [facility] DATE CREATED AUTHOR AUTHOR'S ORGANIZ ATION 07/19/2022 [facility] DATE CREATED AUTHOR AUTHOR'S ORGANIZ ATION 08/22/2023 [facility] DATE CREATED AUTHOR AUTHOR'S ORGANIZ ATION 05/12/2024 [facility] DATE CREATED AUTHOR AUTHOR'S ORGANIZ ATION 05/26/2024 [facility] DATE CREATED AUTHOR AUTHOR'S ORGANIZ ATION 07/14/2024 [facility] DATE CREATED AUTHOR AUTHOR'S ORGANIZ ATION 10/26/2024 [facility] DATE CREATED AUTHOR AUTHOR'S ORGANIZ ATION 10/29/2024 [facility] DATE CREATED AUTHOR AUTHOR'S ORGANIZ ATION 01/01/2025 [facility] Source Comments (unrecognize d section and content) In the event this informatio n is protected by the Federal Confidentiality of Alcohol and Drug Abuse Patient Records regulations: The Federal rules restrict any use of the information to criminally investigate or prosecute any alcohol or drug abuse patient.[facility] HospitalIn the event this information is protected by the Federal Confidentiality of Alcohol and Drug Abuse Patient Records regulations: The Federal rules restrict any use of the information to criminally investigate or prosecute any alcohol or drug abuse patient.[facility] HospitalIn the event this information is protected by the Federal Confidentiality of Alcohol and Drug Abuse Patient Records regulations: The Federal rules restrict any use of the information to criminally investigate or prosecute any alcohol or drug abuse patient.[facility] HospitalIn the event this information is protected by the Federal Confidentiality of Alcohol and Drug Abuse Patient Records regulations: The Federal rules restrict any use of the information to criminally investigate or prosecute any alcohol or drug abuse patient.[facility] the event this information is protected by the Federal Confidentiality of Alcohol and Drug Abuse Patient Records regulations: The Federal rules restrict any use of the information to criminally investigate or prosecute any alcohol or drug abuse patient.[facility] Reason for Visit (unrecogniz ed section and content) Reason Comments Follow Up Reason Comments H/O C. diff Reason Comments Change In Bowel Habits Reason Comments Recheck Reason Comments Post-op Visit Reason Comments Pre-op Visit Reason Comments Wellness Reason Comments Follow-up Endometriosis and vi tamin D Reason Comments Well Women Visit Care Teams (unrecognized sec tion and content) Physical Therapist Clinic Director Relationship Specialty Start Date End Date Haile Junior MD [address] [facility] [place] [place] [address] PCP - General Family Medicine 05/09/24 Physical Therapist Clinic Director Relationship Specialty Start Date End Date Haile Junior MD [address] [place] [address] PCP - General Family Medicine 05/09/24 Physical Therapist Clinic Director Relationship Specialty Start Date End Date Haile Junior MD [address] [place] [address] PCP - General Family Medicine 05/09/24 Physical Therapist Clinic Director Relationship Specialty Start Date End Date Haile Junior MD [address] [place] [address] PCP - General Family Medicine 05/09/24 Physical Therapist Clinic Director Relationship Specialty Start Date End Date Haile Junior APRN-[facility] [employer] PCP - General Nurse Practitioner 07/06/24 Physical Therapist Clinic Director Relationship Specialty Start Date End Date Haile Junior APRN-[employer] [employer] PCP - General Nurse Practitioner 07/06/24 Physical Therapist Clinic Director Relationship Specialty Start Date End Date Haile Junior APRN-[employer] [employer] PCP - General Nurse Practitioner 07/06/24 Physical Therapist Clinic Director Relationship Specialty Start Date End Date Haile Junior APRN-[employer] [employer] PCP - General Nurse Practitioner 07/06/24 Physical Therapist Clinic Director Relationship Specialty Start Date End Date Haile Junior APRN-[employer] [employer] PCP - General Nurse Practitioner 07/06/24 Physical Therapist Clinic Director Relationship Specialty Start Date End Date Haile Junior APRN - [facility] [address] [place] [phone] PCP - General Family Medicine 11/28/24 Physical Therapist Clinic Director Relationship Specialty Start Date End Date Haile Junior MD PCP - General Family Medicine 05/09/24 Physical Therapist Clinic Director Relationship Specialty Start Date End Date Haile Junior MD PCP - General Family Medicine 05/09/24 FOR RECORDS PERTAINING TO PATIENTS WHO ARE [...] BE BASED ON THE PRIMARY CLINICAL RECORDS. [facility] [employer] [facility]. provides no warranty or guarantee of the accuracy or completeness of information in this document.
[2025-03-16 15:09] LABS: Age Gdln ACOG Testing Note (.); IGP, rfx Aptima HPV ASCU Note (.)
== END 2025-03-13 20:51 | disposition home or self-care (01) ==
LOC: LAB 20:50
PROVIDERS: PCP Nurse Practitioner Family; Visit Provider Obstetrics & Gynecology
DX: Z01.419 Encounter for gynecological examination (general) (routine) without abnormal findings (principal)
CPT/HCPCS: 88175